=== PATIENT | male | born 1955 | race Caucasian/White ===

== ENCOUNTER 2017-06-22 14:57 | Inpatient (IN) | payer MEDICAID, OTHER ==
[~2017-06-22] VITALS: Ht 172.7 cm; Wt 84.2 kg
[~2017-06-22 14:57] MED LIST: AMLO5TAB2 PO; ATOR20TA15 PO; ATOR40TA16 PO; CANA100T PO; CARV12.52 PO; CITA40TA4 PO; METF1000 PO; MIRT1TAB PO; ZOLO100T PO
[2017-06-22 15:04] VITALS: BP 122/77; PULSE 95; RESP 14; TEMP 98.2; O2SAT 100
--- NOTE | 2017-06-22 15:52 | PD ---
HPI Chief Complaint: Edema Time Seen by Provider: 15:37 Travel History International Travel<30 days: No Contact w/Intl Traveler<30days: No Traveled to known affect area: No History of Present Illness HPI This patient complains of a growth on the side of his neck. He says it's been there for at least a month. He is ignored it until this point. It doesn't cause him pain. He denies fever or injury. He drinks at least 6 beers daily but often more. He does have history of withdrawal. He was drinking this morning. He denies drug use. He occasionally sees a psychiatrist at [facility]. Severity is moderate to severe. No alleviating factors. Symptoms are worsened by his noncompliance with primary care follow-up. PFSH Past Medical History Cancer: No Cardiovascular Problems: No Diabetes: Yes Glaucoma: No Hepatitis: No Hiatal Hernia: No Hypertension: Yes Respiratory: No Seizures: No Thyroid Disease: No Past Surgical History Abdominal Surgery: No Cardiac Surgery: No Ear Surgery: No Endocrine Surgery: No Eye Surgery: No Genitourinary Surgery: No Gynecologic Surgery: No Neurologic Surgery: No Oral Surgery: No Thoracic Surgery: No Other Surgery: Yes Social History Alcohol Use: Yes (3-4 DRINKS PER DAY OR MORE) Tobacco Use: No Substance Use: Yes (ALCOHOL ABUSE) Allergies-Medications (Allergen,Severity, Reaction): Coded Allergies: No Known Allergies (Verified Adverse Reaction, Unknown, 06/22/17) Reported Meds & Prescriptions Reported Meds & Active Scripts Active Metformin (Metformin HCl) 1,000 Mg Tab 1,000 Mg PO BIDPC With meals Atorvastatin (Atorvastatin Calcium) 20 Mg Tab 20 Mg PO HS Invokana (Canagliflozin) 100 Mg Tab 100 Mg PO DAILY Take before 1st meal of day. Amlodipine (Amlodipine Besylate) 5 Mg Tab 5 Mg PO DAILY Reported Zoloft (Sertraline HCl) 100 Mg Tab 100 Mg PO DAILY Mirtazapine 7.5 Mg Tab 7.5 Mg PO HS Citalopram (Citalopram Hydrobromide) 40 Mg Tab 40 Mg PO DAILY Carvedilol 12.5 Mg Tab 12.5 Mg PO BID Atorvastatin (Atorvastatin Calcium) 40 Mg Tab 40 Mg PO HS Review of Systems General / Constitutional: No: Fever Eyes: No: Visual changes HENT: Positive: Masses, No: Headaches Cardiovascular: No: Chest Pain or Discomfort Respiratory: No: Shortness of Breath Gastrointestinal: No: Abdominal Pain Genitourinary: No: Dysuria Musculoskeletal: No: Pain Skin: No Rash Neurologic: No: Weakness Psychiatric: No: Depression Endocrine: No: Polydipsia Hematologic/Lymphatic: No: Easy Bruising Physical Exam Narrative GENERAL: Well-nourished, well-developed patient in no apparent distress. SKIN: Focused skin assessment reveals no rash and nodules. Skin is Warm and dry. HEAD: Atraumatic. Normocephalic. EYES: Pupils equal and round. No scleral icterus. No injection or drainage. ENT: No nasal bleeding or discharge. Mucous membranes pink and moist. Oral cavity examination reveals a large fungating growth on the right side of the palate. There is a small amount of shift of uvula to the left side. His airway is intact at this time. He can speak and swallow. The area is nontender. Dentition is poor NECK: Trachea midline. No JVD. Has a large firm fixed nontender growth on the right side of his neck. It centered about the angle of the mandible. There is no fluctuance or redness or warmth. CARDIOVASCULAR: Regular rate and rhythm. No murmur appreciated. RESPIRATORY: No accessory muscle use. Clear to auscultation. Breath sounds equal bilaterally. GASTROINTESTINAL: Abdomen soft, non-tender, nondistended. Hepatic and splenic margins not palpable. MUSCULOSKELETAL: No obvious deformities. No clubbing. No cyanosis. No edema. NEUROLOGICAL: Awake and alert. No obvious cranial nerve deficits. Motor grossly within normal limits. Normal speech. PSYCHIATRIC: Appropriate mood and affect; insight and judgment poor . Data Data Last Documented VS Vital Signs Date Time Temp Pulse Resp B/P (MAP) Pulse Ox O2 Delivery O2 Flow Rate FiO2 06/22/17 15:04 98.2 95 14 122/77 (92) 100 Orders Orders Iv Access Insert/Monitor (06/22/17 15:37) Complete Blood Count With Diff (06/22/17 15:37) Comprehensive Metabolic Panel (06/22/17 15:37) Prothrombin Time / Inr (Pt) (06/22/17 15:37) Act Partial Throm Time (Ptt) (06/22/17 15:37) Chest, Single Ap (06/22/17 ) Ct Soft Tiss Neck W Iv Cont (06/22/17 ) Alcohol (Ethanol) (06/22/17 15:37) Admit Order (Ed Use Only) (06/22/17 16:54) Labs Laboratory Tests Test 06/22/17 15:50 White Blood Count 11.1 TH/MM3 Red Blood Count 4.79 MIL/MM3 Hemoglobin 14.1 GM/DL Hematocrit 41.9 % Mean Corpuscular Volume 87.3 FL Mean Corpuscular Hemoglobin 29.4 PG Mean Corpuscular Hemoglobin Concent 33.7 % Red Cell Distribution Width 12.6 % Platelet Count 350 TH/MM3 Mean Platelet Volume 6.8 FL Neutrophils (%) (Auto) 75.2 % Lymphocytes (%) (Auto) 15.8 % Monocytes (%) (Auto) 6.4 % Eosinophils (%) (Auto) 2.0 % Basophils (%) (Auto) 0.6 % Neutrophils # (Auto) 8.3 TH/MM3 Lymphocytes # (Auto) 1.7 TH/MM3 Monocytes # (Auto) 0.7 TH/MM3 Eosinophils # (Auto) 0.2 TH/MM3 Basophils # (Auto) 0.1 TH/MM3 CBC Comment DIFF FINAL Differential Comment Prothrombin Time 10.4 SEC Prothromb Time International Ratio 1.0 RATIO Activated Partial Thromboplast Time 25.4 SEC Blood Urea Nitrogen 11 MG/DL Creatinine 0.80 MG/DL Random Glucose 150 MG/DL Total Protein 8.2 GM/DL Albumin 3.5 GM/DL Calcium Level 9.0 MG/DL Alkaline Phosphatase 60 U/L Aspartate Amino Transf (AST/SGOT) 12 U/L Alanine Aminotransferase (ALT/SGPT) 15 U/L Total Bilirubin 0.2 MG/DL Sodium Level 137 MEQ/L Potassium Level 3.9 MEQ/L Chloride Level 103 MEQ/L Carbon Dioxide Level 25.9 MEQ/L Anion Gap 8 MEQ/L Estimat Glomerular Filtration Rate 98 ML/MIN Ethyl Alcohol Level LESS THAN 3 MG/DL MDM Medical Decision Making Medical Screen Exam Complete: Yes Emergency Medical Condition: Yes Medical Record Reviewed: Yes Differential Diagnosis Squamous cell cancer, cancer of the head and neck, abscess Narrative Course I have reviewed the patient's electronic medical record. Presentation here is consistent with a new diagnosis of head and neck cancer. This does not seem like an infectious cause or abscess. IV placed CBC is normal Metabolic profile is normal LFTs are normal Coagulation studies are normal Alcohol level Reviewed his chest x-ray which is normal Soft tissue neck CT with IV contrast has been ordered to evaluate the mass. CT is pending. I reviewed the case in detail with medical residents will admit. This patient needs evaluation for this and not safe for outpatient given that his follow-up will be lacking. He is uninsured and an alcoholic with no primary care physician. This is close enough to airway compromise that it should be handled in the near future. Diagnosis Primary Impression: Oropharyngeal mass Admitting Information Admitting Physician Requests: Admit Jamey Novoa MD Jun 22, 2017 15:52
[2017-06-22 16:08] LABS: AUTOMATED NEUTROPHIL # 8.3 TH/MM3 (1.8-7.7); BASOPHIL # 0.1 TH/MM3 (0-0.2); BASOPHIL % 0.6 % (0.0-2.0); EOSINOPHIL # 0.2 TH/MM3 (0-0.4); HEMATOCRIT 41.9 % (39.0-51.0); HEMOGLOBIN 14.1 GM/DL (13.0-17.0); LYMPH % 15.8 % (9.0-44.0); LYMPHOCYTE # 1.7 TH/MM3 (1.0-4.8); MEAN CELL VOLUME 87.3 FL (80.0-100.0); MEAN CORPUSCULAR HEMOGLOBIN 29.4 PG (27.0-34.0); MEAN CORPUSCULAR HGB CONC 33.7 % (32.0-36.0); MEAN PLATELET VOLUME 6.8 FL (7.0-11.0); MONO % 6.4 % (0.0-8.0); MONOCYTE # 0.7 TH/MM3 (0-0.9); NEUT % 75.2 % (16.0-70.0); PLATELET COUNT 350 TH/MM3 (150-450); RED BLOOD COUNT 4.79 MIL/MM3 (4.50-5.90); RED CELL DISTRIBUTION WIDTH 12.6 % (11.6-17.2); WHITE BLOOD COUNT 11.1 TH/MM3 (4.0-11.0)
--- NOTE | 2017-06-22 16:14 | RADRPT ---
EXAM DATE/TIME: 06/22/2017 15:46 [facility] COMPARISON: No previous studies available for comparison. INDICATIONS : Swollen right side of jaw. MEDICAL HISTORY : None. SURGICAL HISTORY : None. ENCOUNTER: Initial ACUITY: 1 month PAIN SCORE: 0/10 LOCATION: Bilateral chest FINDINGS: A single view of the chest demonstrates the lungs to be symmetrically aerated without evidence of mas s, infiltrate or effusion. The cardiomediastinal contours are unremarkable. Osseous structures are intact hypertrophic spurring of the mid lower thoracic spine.. CONCLUSION: No acute disease. Rudy Cormier MD on June 22, 2017 at 16:11 Board Certified Radiologist. This report was verified electronically.
[2017-06-22 16:17] LABS: PROTHROMBIN TIME - PATIENT 10.4 SEC (9.8-11.6)
[2017-06-22 16:42] LABS: ALBUMIN 3.5 GM/DL (3.4-5.0); AST (GOT) 12 U/L (15-37); BICARBONATE 25.9 MEQ/L (21.0-32.0); BLOOD UREA NITROGEN 11 MG/DL (7-18); CHLORIDE 103 MEQ/L (98-107); GLOMERULAR FILTRATION RATE 98 ML/MIN (>89); GLUCOSE,RANDOM 150 MG/DL (74-106); SODIUM (NA) 137 MEQ/L (136-145)
[2017-06-22 16:46] LABS: ALKALINE PHOSPHATASE 60 U/L (45-117); ALT (GPT) 15 U/L (12-78); TOTAL BILIRUBIN ADULT 0.2 MG/DL (0.2-1.0); TOTAL PROTEIN 8.2 GM/DL (6.4-8.2)
[2017-06-22] MEDS ORDERED: ZOFR4TAB PO (16:46)
[2017-06-22] MEDS ORDERED: IOHEXOL 350 MG/ML 10 ML VIAL (for RAD DIAG) IVCONTRAST ONE (17:39)
--- NOTE | 2017-06-22 17:54 | RADRPT ---
EXAM DATE/TIME: 06/22/2017 17:39 [facility] COMPARISON: No previous studies available for comparison. INDICATIONS : Right side neck swelling, mass. IV CONTRAST: 67 cc Omnipaque 350 (iohexol) IV RADIATION DOSE: 14.68 CTDIvol (mGy) MEDICAL HISTORY : Hypertension. Diabetes mellitus type 2. SURGICAL HISTORY : None. ENCOUNTER: Initial ACUITY: 1 month PAIN SCALE: 5/10 LOCATION: Right neck region. TECHNIQUE: Volumetric scanning of the neck was performed. Using automated exposure control and adjustment of th e mA and/or kV according to patient size, radiation dose was kept as low as reasonably achievable to obtain optimal diagnostic quality images. DICOM format image data is available electronically for r eview and comparison. FINDINGS: Problem specific findings: Post contrast CT imaging demonstrates a large right-sided mass which appears to originate the tonsill ar pillar on the right. This measures at least 5.0 x 3.7 cm. There is extension of the soft tissue ma ss into the jugular jacinto chain on the right. There is a large jacinto mass at this point which measure s at least 4.3 x 4.6 cm. The mass extends inferiorly down to and involves the right side of the tongu e base. The lesion essentially fills the right parapharyngeal space. And extend superiorly up to the base of the nasopharynx on the right. The examination also demonstrates necrotic adenopathy measuring 2.7 x 2.2 cm with several other surrounding smaller nodes in the group 2 jugular jacinto chain on the left. The findings are highly suspicious for malignancy. CT source data: The larynx is intact. The limited portions of upper chest visualized are unremarkable. The limited po rtions of brain parenchyma visualized are unremarkable. There is no evidence of bony invasion. CONCLUSION: The examination demonstrates a large soft tissue mass which appears to have originated in the tonsill ar pillar on the right. Superiorly this extends up to the right side of the nasopharynx. Inferiorly i t extends down to and involves the right side of the tongue base. The primary mass measures at least 5.0 x 3.7 cm. There is a soft tissue mass evident in the jugular jacinto chain on the right measuring 4 .3 x 4.6 cm. There is necrotic, abnormal adenopathy in the group 2 jugular jacinto chain on the left. T hese findings are highly suspicious for malignancy. Eddi Webb MD on June 22, 2017 at 17:46 Board Certified Radiologist. This report was verified electronically.
--- NOTE | 2017-06-22 18:21 | HHI.HP ---
HPI Service Family Medicine Primary Care Physician No Primary Care Physician Admission Diagnosis oropharyngeal mass Diagnoses: International Travel<30 Days: No Contact w/Intl Traveler<30days: No Known Affected Area: No History of Present Illness 61 y/o M, comes in with worsening lump on R side of face. It is becoming more difficult for him to open his jaw and swallow. He can still tolerate PO but it hurts when he opens his mouth too far. He never has any problems sipping water. He has also noticed it is impeding his speech. . He had a little trouble breathing last night and this caused him to think of this issue more seriously. He first noticed the lump 1 month ago and it has been gradually getting bigger. Denies any tobacco chewing or smoking. He does see a psychiatrist regularly, and she told him to come into the ED to get evaluated for this issue. He last saw a PCP 1 month ago but he didn't mention the lump. He has had a 10lb weight loss in the last month. He has had some congestion for the last few weeks, productive cough with mucous. He has no known lung disease but has had sinus issues. Denies fever/chills. Denies night sweats. Denies CP/ SOB/dizziness. Review of Systems Constitutional: DENIES: Weight gain, Chills Endocrine: DENIES: Polyuria Eyes: DENIES: Blurred vision, Double Vision Ears, nose, mouth, throat: COMPLAINS OF: Tinnitus (x 2 years), DENIES: Vertigo Respiratory: COMPLAINS OF: Cough, Sputum production, DENIES: Hemoptysis Cardiovascular: COMPLAINS OF: Syncope (couple months ago yes after standing up) , DENIES: Chest pain Gastrointestinal: DENIES: Constipation, Diarrhea, Nausea, Vomiting Genitourinary: DENIES: Urinary frequency, Urinary incontinence Integumentary: DENIES: Nail changes Hematologic/lymphatic: DENIES: Lymphadenopathy Immunologic/allergic: DENIES: Urticaria Neurologic: DENIES: Headache, Seizures Psychiatric: COMPLAINS OF: Anxiety (seeing psych, started a few months ago), Depression Past Family Social History Past Medical History DM - uncontrolled recently? Anxiety, Depression HTN Jonh for mental problems Past Surgical History NEC FAS on L hand knuckle, with debridement in 2014 2 carpal tunnel broken leg (28 y/a) Allergies: Coded Allergies: No Known Allergies (Verified Allergy, Unknown, 06/22/17) Family History Mom - Cancer of peritoneum Dad - CHF, DM Social History live with a roommate, live in a house in [facility], 1 dog drinking 6-pack /day (no hx of withdrawl sx) w/ sometimes vodka & OJ, no smoking , occasional marijuana use Physical Exam Vital Signs Vital Signs Date Time Temp Pulse Resp B/P (MAP) Pulse Ox O2 Delivery O2 Flow Rate FiO2 06/22/17 15:04 98.2 95 14 122/77 (92) 100 Physical Exam GENERAL: This is a well-nourished, well-developed patient, in no apparent distress. SKIN: No rashes, ecchymoses or lesions. Cool and dry. HEAD: Atraumatic. Normocephalic. No temporal or scalp tenderness. EYES: Pupils equal round and reactive. Extraocular motions intact. No scleral icterus. No injection or drainage. ENT: Nose without bleeding, purulent drainage or septal hematoma. Throat with large fungating mass apparent in right posterior throat. Uvula is deviated to the far left. NECK: 5 cm x 4 cm soft tissue mass under right jaw line posteriorly. On erythematous, nontender. On superlative. CARDIOVASCULAR: Regular rate and rhythm without murmurs, gallops, or rubs. RESPIRATORY: Clear to auscultation. Breath sounds equal bilaterally. No wheezes , rales, or rhonchi. GASTROINTESTINAL: Abdomen soft, non-tender, nondistended. No hepato-splenomegaly , or palpable masses. No guarding. MUSCULOSKELETAL: Extremities without clubbing, cyanosis, or edema. No joint tenderness, effusion, or edema noted. No calf tenderness. Negative Homans sign bilaterally. NEUROLOGICAL: Awake and alert. Cranial nerves II through XII intact. Motor and sensory grossly within normal limits. Five out of 5 muscle strength in all muscle groups. Normal speech. Laboratory Laboratory Tests Test 06/22/17 15:50 White Blood Count 11.1 Red Blood Count 4.79 Hemoglobin 14.1 Hematocrit 41.9 Mean Corpuscular Volume 87.3 Mean Corpuscular Hemoglobin 29.4 Mean Corpuscular Hemoglobin Concent 33.7 Red Cell Distribution Width 12.6 Platelet Count 350 Mean Platelet Volume 6.8 Neutrophils (%) (Auto) 75.2 Lymphocytes (%) (Auto) 15.8 Monocytes (%) (Auto) 6.4 Eosinophils (%) (Auto) 2.0 Basophils (%) (Auto) 0.6 Neutrophils # (Auto) 8.3 Lymphocytes # (Auto) 1.7 Monocytes # (Auto) 0.7 Eosinophils # (Auto) 0.2 Basophils # (Auto) 0.1 CBC Comment DIFF FINAL Differential Comment Prothrombin Time 10.4 Prothromb Time International Ratio 1.0 Activated Partial Thromboplast Time 25.4 Blood Urea Nitrogen 11 Creatinine 0.80 Random Glucose 150 Total Protein 8.2 Albumin 3.5 Calcium Level 9.0 Alkaline Phosphatase 60 Aspartate Amino Transf (AST/SGOT) 12 Alanine Aminotransferase (ALT/SGPT) 15 Total Bilirubin 0.2 Sodium Level 137 Potassium Level 3.9 Chloride Level 103 Carbon Dioxide Level 25.9 Anion Gap 8 Estimat Glomerular Filtration Rate 98 Ethyl Alcohol Level LESS THAN 3 Result Diagram: 06/22/17 1550 06/22/17 1550 Septic Shock Reassessment Septic shock perfusion: reassessment completed Caprini VTE Risk Assessment Caprini VTE Risk Assessment: No/Low Risk (score <= 1) Caprini Risk Assessment Model Point Value = 1 Point Value = 2 Point Value = 3 Point Value = 5 Age 41-60 Minor surgery BMI > 25 kg/m2 Swollen legs Varicose veins or History of unexplained or recurrent spontaneous Oral contraceptives or hormone replacement Sepsis (< 1 month) Serious lung disease, including pneumonia (< 1 month) Abnormal pulmonary function Acute myocardial infarction Congestive heart failure (< 1 month) History of inflammatory bowel disease Medical patient at bed rest Age 61-74 Arthroscopic surgery Major open surgery (> 45 min) Laparoscopic surgery (> 45 min) Malignancy Confined to bed (> 72 hours) Immobilizing plaster cast Central venous access Age >= 75 History of VTE Family history of VTE Factor V Leiden Prothrombin [id number] Lupus anticoagulant Anticardiolipin antibodies Elevated serum homocysteine Heparin-induced thrombocytopenia Other congenital or acquired thrombophilia Stroke (< 1 month) Elective arthroplasty Hip, pelvis, or leg fracture Acute spinal cord injury (< 1 month) Prophylaxis Regimen Total Risk Factor Score Risk Level Prophylaxis Regimen 0-1 Low Early ambulation 2 Moderate Order ONE of the following: *Sequential Compression Device (SCD) *Heparin 5000 units SQ BID 3-4 Higher Order ONE of the following medications: *Heparin 5000 units SQ TID *Enoxaparin/Lovenox 40 mg SQ daily (WT < 150 kg, CrCl > 30 mL/min) *Enoxaparin/Lovenox 30 mg SQ daily (WT < 150 kg, CrCl > 10-29 mL/min) *Enoxaparin/Lovenox 30 mg SQ BID (WT < 150 kg, CrCl > 30 mL/min) AND/OR *Sequential Compression Device (SCD) 5 or more Highest Order ONE of the following medications: *Heparin 5000 units SQ TID (Preferred with Epidurals) *Enoxaparin/Lovenox 40 mg SQ daily (WT < 150 kg, CrCl > 30 mL/min) *Enoxaparin/Lovenox 30 mg SQ daily (WT < 150 kg, CrCl > 10-29 mL/min) *Enoxaparin/Lovenox 30 mg SQ BID (WT < 150 kg, CrCl > 30 mL/min) AND *Sequential Compression Device (SCD) Assessment and Plan Assessment and Plan 61-year-old male, past medical history of diabetes and hypertension, presents with growing mass on neck for the last month. Code Status Full code Problem List: (1) Oropharyngeal mass ICD Codes: R22.1 - Localized swelling, mass and lump, neck Status: Acute Plan: Growing over the past month, hx of weight loss Malignancy versus other benign growth 5 cm x 4 cm on exam Follow-up ENT consult Neck CT: The examination demonstrates a large soft tissue mass which appears to have originated in the tonsillar pillar on the right. Superiorly this extends up to the right side of the nasopharynx. Inferiorly it extends down to and involves the right side of the tongue base. The primary mass measures at least 5.0 x 3.7 cm. There is a soft tissue mass evident in the jugular jacinto chain on the right measuring 4.3 x 4.6 cm. There is necrotic, abnormal adenopathy in the group 2 jugular jacinto chain on the left. These findings are highly suspicious for malignancy. (2) Hypertension ICD Codes: I10 - Essential (primary) hypertension Plan: Continue amlodipine 5 daily Follow-up blood pressures (3) Anxiety and depression ICD Codes: F41.8 - Other specified anxiety disorders Plan: Continue home meds Continue Zoloft Continue Abilify Will continue to evaluate psychiatric status, we'll consider psych consult if necessary (4) Diabetes ICD Codes: E11.9 - Type 2 diabetes mellitus without complications Plan: Hold home metformin Low-dose sliding scale Follow-up blood sugars (5) fen/ppx Status: Acute Plan: Fluid: By mouth fluid as tolerated Electrolytes: Follow-up BMP and replete as needed Nutrition: Diabetic diet Physician Certification 2 Midnight Certification Type: Admission for Inpatient Services Order for Inpatient Services The services are ordered in accordance with Medicare regulations or non- Medicare payer requirements, as applicable. In the case of services not specified as inpatient-only, they are appropriately provided as inpatient services in accordance with the 2-midnight benchmark. Estimated LOS (days): 2 days is the estimated time the patient will need to remain in the hospital, assuming treatment plan goals are met and no additional complications. Post-Hospital Plan: Home Ignacia Rodriguez MD R2 Jun 22, 2017 18:21
[2017-06-22 18:27] VITALS: BP 117/75; PULSE 101; RESP 18; O2SAT 99
[2017-06-22] MEDS ORDERED: LORazepam 1 MG TAB PO PRN (19:15)
[2017-06-22] MEDS ORDERED: ONDANSETRON HCL 4 MG/2 ML VIAL IVP PRN (19:15)
[2017-06-22] MEDS ORDERED: LACTULOSE SYRUP 20 GM/30 ML CUP PO PRN (19:15)
[2017-06-22] MEDS ORDERED: GLUCAGON 1 MG/ML VIAL OTHER PRN (19:15)
[2017-06-22] MEDS ORDERED: MAGNESIUM HYDROXIDE SUSP 30 ML CUP PO PRN (19:15)
[2017-06-22] MEDS ORDERED: BISACODYL 10 MG SUPP RECTAL PRN (19:15)
[2017-06-22] MEDS ORDERED: SENNOSIDES 8.6 MG TAB PO PRN (19:15)
[2017-06-22] MEDS ORDERED: LORazepam 2 MG/ML VIAL IV PUSH PRN ×4 (19:15)
[2017-06-22] MEDS ORDERED: NALOXONE HCL 0.4 MG/ML AMP IV PUSH PRN (19:15)
[2017-06-22] MEDS ORDERED: FLUMAZENIL 0.5 MG/5 ML VIAL IV PUSH PRN (19:15)
[2017-06-22] MEDS ORDERED: LORazepam 2 MG TAB PO PRN (19:15)
[2017-06-22] MEDS ORDERED: DEXTROSE 50% IN WATER 50 ML VIAL(D50) IV PUSH PRN (19:15)
[2017-06-22] MEDS ORDERED: ACETAMINOPHEN 325 MG TAB PO PRN (19:15)
[2017-06-22 20:34] VITALS: O2SAT 99
[2017-06-22 20:50] VITALS: BP 139/89; PULSE 107; RESP 16; TEMP 98.1; O2SAT 98
[2017-06-22] MEDS ORDERED: PILL SPLITTER OTHER PRN (21:00)
[2017-06-22] MEDS: INSULIN ASPART SUPPLEMENTAL SCALE SQ SCH (21:00)
[2017-06-22] MEDS: ENOXAPARIN SODIUM 40 MG/0.4 ML SYRINGE SQ SCH (21:22)
[2017-06-22] MEDS: ATORVASTATIN 40 MG TAB PO SCH (21:22)
[2017-06-22] MEDS: MIRTAZAPINE 15 MG TAB PO SCH (21:22)
[2017-06-22] MEDS: ZOLPIDEM TARTRATE 5 MG TAB PO PRN (22:30)
[2017-06-23] VITALS (8 sets, daily range): BP systolic 107–144; BP diastolic 70–98; PULSE 85–103; RESP 16; TEMP 97.4–98.9; O2SAT 95–98
--- NOTE | 2017-06-23 07:32 | PD.CONS ---
History of Present Illness Service ENT Consult Requested By ED Reason for Consult Right neck mass. Primary Care Physician No Primary Care Physician Diagnoses: History of Present Illness 61 year old man, slowly enlarging right neck mass. Patient feels about a month. Presented to ED. Denies dysphagia and odynophagia. [place] his breathing may have been a little tight. CT confirmed large right oropharyngeal and neck mass. Review of Systems Ears, nose, mouth, throat: COMPLAINS OF: Oral lesions, DENIES: Nasal discharge , Throat pain, Hoarseness, Odynophagia Past Family Social History Allergies: Coded Allergies: No Known Allergies (Verified Allergy, Unknown, 06/22/17) Physical Exam Vital Signs Vital Signs Date Time Temp Pulse Resp B/P (MAP) Pulse Ox O2 Delivery O2 Flow Rate FiO2 06/23/17 04:35 97.4 97 16 126/70 (88) 98 06/23/17 00:45 98.5 88 16 107/71 (83) 96 06/22/17 20:50 98.1 107 16 139/89 (106) 98 06/22/17 20:40 06/22/17 20:34 99 21 06/22/17 18:27 101 18 117/75 (89) 99 Room Air 06/22/17 15:04 98.2 95 14 122/77 (92) 100 Physical Exam GENERAL: This is a well-nourished, well-developed patient, in no apparent distress. SKIN: No rashes, ecchymoses or lesions. Cool and dry. HEAD: Atraumatic. Normocephalic. No temporal or scalp tenderness. EYES: Pupils equal round and reactive. Extraocular motions intact. No scleral icterus. No injection or drainage. ENT: Nose without bleeding, purulent drainage or septal hematoma. Throat with large right tonsillar lesion intro palate and down to tongue base. Clinically consistent with squamous cell carcinoma. Airway patent. NECK: Trachea midline.Large level two and three mass. Laboratory Laboratory Tests Test 06/22/17 15:50 06/23/17 05:33 White Blood Count 11.1 Red Blood Count 4.79 Hemoglobin 14.1 Hematocrit 41.9 Mean Corpuscular Volume 87.3 Mean Corpuscular Hemoglobin 29.4 Mean Corpuscular Hemoglobin Concent 33.7 Red Cell Distribution Width 12.6 Platelet Count 350 Mean Platelet Volume 6.8 Neutrophils (%) (Auto) 75.2 Lymphocytes (%) (Auto) 15.8 Monocytes (%) (Auto) 6.4 Eosinophils (%) (Auto) 2.0 Basophils (%) (Auto) 0.6 Neutrophils # (Auto) 8.3 Lymphocytes # (Auto) 1.7 Monocytes # (Auto) 0.7 Eosinophils # (Auto) 0.2 Basophils # (Auto) 0.1 CBC Comment DIFF FINAL Differential Comment Prothrombin Time 10.4 Prothromb Time International Ratio 1.0 Activated Partial Thromboplast Time 25.4 Blood Urea Nitrogen 11 Creatinine 0.80 Random Glucose 150 Total Protein 8.2 Albumin 3.5 Calcium Level 9.0 Alkaline Phosphatase 60 Aspartate Amino Transf (AST/SGOT) 12 Alanine Aminotransferase (ALT/SGPT) 15 Total Bilirubin 0.2 Sodium Level 137 Potassium Level 3.9 Chloride Level 103 Carbon Dioxide Level 25.9 Anion Gap 8 Estimat Glomerular Filtration Rate 98 Ethyl Alcohol Level LESS THAN 3 Result Diagram: 06/22/17 1550 06/22/[address] report reviewed. Assessment and Plan Assessment and Plan 61 year old man, advanced head and neck cancer. 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 Need a confirmatory tissue diagnosis. Will ask Interventional Radiology to approach from US guided biopsy of right neck. Not a surgical candidate. Will consult Medical Oncology and Radiation Oncology. Reviewed finding and plans with patient. I did inform him that I believe this is a cancer and he will require treatment. He understands and wishes to pursue. Isaac Elliott MD Jun 23, 2017 07:32
[2017-06-23 08:34] LABS: ALBUMIN 3.1 GM/DL (3.4-5.0); AST (GOT) 8 U/L (15-37); BICARBONATE 28.2 MEQ/L (21.0-32.0); BLOOD UREA NITROGEN 14 MG/DL (7-18); CALCIUM 8.9 MG/DL (8.5-10.1); CHLORIDE 104 MEQ/L (98-107); CREATININE 0.85 MG/DL (0.60-1.30); GLOMERULAR FILTRATION RATE 91 ML/MIN (>89); GLUCOSE,RANDOM 182 MG/DL (74-106); SODIUM (NA) 140 MEQ/L (136-145)
[2017-06-23 08:37] LABS: ALKALINE PHOSPHATASE 59 U/L (45-117); ALT (GPT) 11 U/L (12-78); TOTAL BILIRUBIN ADULT 0.2 MG/DL (0.2-1.0); TOTAL PROTEIN 7.3 GM/DL (6.4-8.2)
[2017-06-23] MEDS: amLODIPine BESYLATE 5 MG TAB PO SCH (08:44)
[2017-06-23] MEDS: ARIPiprazole 2 MG TAB PO SCH (08:44)
[2017-06-23] MEDS: SERTRALINE HCL 100 MG TAB PO SCH (08:44)
[2017-06-23] MEDS: INSULIN ASPART SUPPLEMENTAL SCALE SQ SCH ×4 (08:45→19:50)
[2017-06-23] MEDS ORDERED: PNEUMOCOCCAL POLYVALENT INJ 25 MCG/0.5 ML SYR IM ONE (09:00)
[2017-06-23] MEDS ORDERED: INFLUENZA VIRUS VACCINE (QUADRIVALENT) 0.5 ML SYR IM ONE (09:00)
--- NOTE | 2017-06-23 12:17 | HHI.FPPN ---
Subjective Remarks Attending admitting note. 61-year-old gentleman admitted through the emergency room after presenting with a mass involving the right side of his face extending into the oropharynx and on imaging noted to be close to the carotid artery. Patient relates that he is not a smoker, has drank alcohol in the past. Sees a psychiatrist at [facility] and otherwise has enjoyed good health except for a 10 pound weight loss in the last month area appetite may be down. Please refer to the resident history and physical for complete discussion of past medical history, family history, social history, review of systems Objective Vitals Vital Signs Date Time Temp Pulse Resp B/P (MAP) Pulse Ox O2 Delivery O2 Flow Rate FiO2 06/23/17 11:51 98.6 95 16 129/83 (98) 97 06/23/17 08:38 98.5 95 16 123/80 (94) 95 06/23/17 04:35 97.4 97 16 126/70 (88) 98 06/23/17 00:45 98.5 88 16 107/71 (83) 96 06/22/17 20:50 98.1 107 16 139/89 (106) 98 06/22/17 20:40 06/22/17 20:34 99 21 06/22/17 18:27 101 18 117/75 (89) 99 Room Air 06/22/17 15:04 98.2 95 14 122/77 (92) 100 I/O 06/22/17 06/22/17 06/22/17 06/23/17 06/23/17 06/23/17 07:00 15:00 23:00 07:00 15:00 23:00 Intake Total 240 ml Output Total 300 ml Balance -60 ml Intake Oral 240 ml Output Urine Total 300 ml Result Diagram: 06/22/17 1550 06/23/17 0533 Objective Remarks Vital signs noted. Gen. appearance: Older gentleman who is in a chair out of bed, makes good eye contact, normal affect, pleasant in conversation. HEENT: Notable for a 6+ centimeters mass right submandibular area palpable externally and then on inspection of the oropharynx mass in the right pharyngeal arch. Erythematous mucosa. Neck: No palpable adenopathy. Lungs: Clear to auscultation Cardiac: S1-S2, no S3. No murmurs appreciated. Abdomen: Soft, nontender. Lower extremities: Without edema. 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 Biopsy pending. Doubt lymphoma. #2 history of hypertension #3 type 2 diabetes mellitus Appreciate ENT consultation, biopsy, try to arrange for follow-up with hematology/oncology. Resources may be limited. Case reviewed and discussed with the resident team. Agree with plan of care is discussed with me and documented in the resident note. Problem List: (1) Oropharyngeal mass ICD Codes: R22.1 - Localized swelling, mass and lump, neck Status: Acute Plan: Growing over the past month, hx of weight loss Malignancy versus other benign growth 5 cm x 4 cm on exam Follow-up ENT consult Neck CT: The examination demonstrates a large soft tissue mass which appears to have originated in the tonsillar pillar on the right. Superiorly this extends up to the right side of the nasopharynx. Inferiorly it extends down to and involves the right side of the tongue base. The primary mass measures at least 5.0 x 3.7 cm. There is a soft tissue mass evident in the jugular jacinto chain on the right measuring 4.3 x 4.6 cm. There is necrotic, abnormal adenopathy in the group 2 jugular jacinto chain on the left. These findings are highly suspicious for malignancy. (2) Hypertension ICD Codes: I10 - Essential (primary) hypertension Plan: Continue amlodipine 5 daily Follow-up blood pressures (3) Anxiety and depression ICD Codes: F41.8 - Other specified anxiety disorders Plan: Continue home meds Continue Zoloft Continue Abilify Will continue to evaluate psychiatric status, we'll consider psych consult if necessary (4) Diabetes ICD Codes: E11.9 - Type 2 diabetes mellitus without complications Plan: Hold home metformin Low-dose sliding scale Follow-up blood sugars (5) fen/ppx Status: Acute Plan: Fluid: By mouth fluid as tolerated Electrolytes: Follow-up BMP and replete as needed Nutrition: Diabetic diet Anton Barrett MD Jun 23, 2017 12:17
[2017-06-23] MEDS ORDERED: POTASSIUM CHLORIDE 10 MEQ CONTROLLED RELEASE TAB PO ONE (14:15)
[2017-06-23] MEDS: ENOXAPARIN SODIUM 40 MG/0.4 ML SYRINGE SQ SCH (19:50)
[2017-06-23] MEDS: MIRTAZAPINE 15 MG TAB PO SCH (19:52)
[2017-06-23] MEDS: ATORVASTATIN 40 MG TAB PO SCH (19:52)
[2017-06-24] VITALS (7 sets, daily range): BP systolic 119–135; BP diastolic 75–82; PULSE 84–95; RESP 17–20; TEMP 97.9–98.2; O2SAT 95–98
[2017-06-24] MEDS: ZOLPIDEM TARTRATE 5 MG TAB PO PRN (04:13)
[2017-06-24 07:23] LABS: AUTOMATED NEUTROPHIL # 9.5 TH/MM3 (1.8-7.7); BASOPHIL # 0.1 TH/MM3 (0-0.2); BASOPHIL % 0.7 % (0.0-2.0); EOSINOPHIL # 0.3 TH/MM3 (0-0.4); EOSINOPHIL % 2.4 % (0.0-4.0); HEMATOCRIT 40.5 % (39.0-51.0); HEMOGLOBIN 13.7 GM/DL (13.0-17.0); LYMPH % 12.1 % (9.0-44.0); LYMPHOCYTE # 1.5 TH/MM3 (1.0-4.8); MEAN CORPUSCULAR HEMOGLOBIN 29.5 PG (27.0-34.0); MEAN CORPUSCULAR HGB CONC 33.9 % (32.0-36.0); MONO % 7.3 % (0.0-8.0); MONOCYTE # 0.9 TH/MM3 (0-0.9); NEUT % 77.5 % (16.0-70.0); PLATELET COUNT 326 TH/MM3 (150-450); RED BLOOD COUNT 4.65 MIL/MM3 (4.50-5.90); RED CELL DISTRIBUTION WIDTH 12.7 % (11.6-17.2); WHITE BLOOD COUNT 12.2 TH/MM3 (4.0-11.0)
[2017-06-24 07:48] LABS: BICARBONATE 26.3 MEQ/L (21.0-32.0); CALCIUM 9.1 MG/DL (8.5-10.1); CREATININE 0.79 MG/DL (0.60-1.30)
[2017-06-24] MEDS: amLODIPine BESYLATE 5 MG TAB PO SCH (08:49)
[2017-06-24] MEDS: ARIPiprazole 2 MG TAB PO SCH (08:49)
[2017-06-24] MEDS: SERTRALINE HCL 100 MG TAB PO SCH (08:49)
[2017-06-24] MEDS: INSULIN ASPART SUPPLEMENTAL SCALE SQ SCH ×4 (08:50→21:23)
--- NOTE | 2017-06-24 09:30 | HHI.FPPN ---
Subjective Remarks Patient seen and examined bedside this morning. He continues to eat and drink without difficulty. He has not had any difficulty breathing. Denies chest pain/ redness of breath. Denies dizziness. Ambulating and voiding without difficulty. Objective Vitals Vital Signs Date Time Temp Pulse Resp B/P (MAP) Pulse Ox O2 Delivery O2 Flow Rate FiO2 06/24/17 08:00 97.9 90 17 119/78 (92) 96 06/24/17 04:00 98.2 89 20 131/75 (93) 96 06/24/17 00:00 98.0 87 20 125/77 (93) 96 06/23/17 22:06 98.0 85 16 144/88 (106) 98 06/23/17 20:00 98.9 91 16 120/81 (94) 98 06/23/17 16:56 97 21 06/23/17 16:36 98.5 103 16 132/98 (109) 97 06/23/17 11:51 98.6 95 16 129/83 (98) 97 I/O 06/23/17 06/23/17 06/23/17 06/24/17 06/24/17 06/24/17 07:00 15:00 23:00 07:00 15:00 23:00 Intake Total 240 ml 740 ml 220 ml Output Total 300 ml 375 ml 300 ml Balance -60 ml 365 ml -80 ml Intake Oral 240 ml 740 ml 220 ml Output Urine Total 300 ml 375 ml 300 ml # Voids 1 # Bowel Movements 0 Result Diagram: 06/24/17 0635 06/24/17 0635 Objective Remarks Vital signs noted. Gen. appearance: Older gentleman who is in a chair out of bed, makes good eye contact, normal affect, pleasant in conversation. HEENT: Notable for a 6+ centimeters mass right submandibular area palpable externally and then on inspection of the oropharynx mass in the right pharyngeal arch. Erythematous mucosa. Neck: No palpable adenopathy. Lungs: Clear to auscultation Cardiac: S1-S2, no S3. No murmurs appreciated. Abdomen: Soft, nontender. Lower extremities: Without edema. 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 Biopsy pending. Doubt lymphoma. #2 history of hypertension #3 type 2 diabetes mellitus Appreciate ENT consultation, biopsy, try to arrange for follow-up with hematology/oncology. Resources may be limited. Case reviewed and discussed with the resident team. Agree with plan of care is discussed with me and documented in the resident note. Problem List: (1) Oropharyngeal mass ICD Codes: R22.1 - Localized swelling, mass and lump, neck Status: Acute Plan: Growing over the past month, hx of weight loss Malignancy versus other benign growth 5 cm x 4 cm on exam Follow-up ENT consult - Plan for IR ultrasound-guided biopsy of neck - Follow up medical oncology consult - Follow up radiology oncology consult Neck CT: The examination demonstrates a large soft tissue mass which appears to have originated in the tonsillar pillar on the right. Superiorly this extends up to the right side of the nasopharynx. Inferiorly it extends down to and involves the right side of the tongue base. The primary mass measures at least 5.0 x 3.7 cm. There is a soft tissue mass evident in the jugular jacinto chain on the right measuring 4.3 x 4.6 cm. There is necrotic, abnormal adenopathy in the group 2 jugular jacinto chain on the left. These findings are highly suspicious for malignancy. (2) Hypertension ICD Codes: I10 - Essential (primary) hypertension Plan: Continue amlodipine 5 daily Follow-up blood pressures (3) Anxiety and depression ICD Codes: F41.8 - Other specified anxiety disorders Plan: Continue home meds Continue Zoloft Continue Abilify Will continue to evaluate psychiatric status, we'll consider psych consult if necessary (4) Diabetes ICD Codes: E11.9 - Type 2 diabetes mellitus without complications Plan: Hold home metformin Low-dose sliding scale Follow-up blood sugars (5) Drug abuse ICD Codes: F19.10 - Other psychoactive substance abuse, uncomplicated Status: Chronic Plan: UDS positive for marijuana and benzodiazepines (6) fen/ppx Status: Acute Plan: Fluid: By mouth fluid as tolerated Electrolytes: Follow-up BMP and replete as needed Nutrition: Diabetic diet Ignacia Rodriguez MD R2 Jun 24, 2017 09:30
[2017-06-24] MEDS: MIRTAZAPINE 15 MG TAB PO SCH (21:13)
[2017-06-24] MEDS: ATORVASTATIN 40 MG TAB PO SCH (21:13)
[2017-06-24] MEDS: ENOXAPARIN SODIUM 40 MG/0.4 ML SYRINGE SQ SCH (21:14)
[2017-06-25] VITALS: BP 139/62; PULSE 82; RESP 19; TEMP 98.6; O2SAT 95
[2017-06-25] MEDS: ZOLPIDEM TARTRATE 5 MG TAB PO PRN (00:14)
[2017-06-25 04:00] VITALS: BP 141/70; PULSE 86; RESP 20; TEMP 98.7; O2SAT 97
[2017-06-25 08:00] VITALS: BP 138/80; PULSE 90; RESP 18; TEMP 97.9; O2SAT 97
[2017-06-25] MEDS: amLODIPine BESYLATE 5 MG TAB PO SCH (08:32)
[2017-06-25] MEDS: ARIPiprazole 2 MG TAB PO SCH (08:32)
[2017-06-25] MEDS: SERTRALINE HCL 100 MG TAB PO SCH (08:32)
[2017-06-25] MEDS: INSULIN ASPART SUPPLEMENTAL SCALE SQ SCH ×3 (08:38→17:43)
[2017-06-25 09:04] LABS: AUTOMATED NEUTROPHIL # 7.2 TH/MM3 (1.8-7.7); BASOPHIL # 0.1 TH/MM3 (0-0.2); BASOPHIL % 0.9 % (0.0-2.0); EOSINOPHIL # 0.4 TH/MM3 (0-0.4); EOSINOPHIL % 3.5 % (0.0-4.0); HEMATOCRIT 38.9 % (39.0-51.0); HEMOGLOBIN 13.5 GM/DL (13.0-17.0); LYMPH % 17.8 % (9.0-44.0); LYMPHOCYTE # 1.8 TH/MM3 (1.0-4.8); MEAN CELL VOLUME 87.3 FL (80.0-100.0); MEAN CORPUSCULAR HEMOGLOBIN 30.2 PG (27.0-34.0); MEAN CORPUSCULAR HGB CONC 34.6 % (32.0-36.0); MEAN PLATELET VOLUME 7.2 FL (7.0-11.0); MONOCYTE # 0.7 TH/MM3 (0-0.9); NEUT % 70.8 % (16.0-70.0); PLATELET COUNT 343 TH/MM3 (150-450); RED BLOOD COUNT 4.45 MIL/MM3 (4.50-5.90); RED CELL DISTRIBUTION WIDTH 12.6 % (11.6-17.2); WHITE BLOOD COUNT 10.2 TH/MM3 (4.0-11.0)
--- NOTE | 2017-06-25 09:39 | HHI.FPPN ---
Subjective Remarks Patient seen and examined bedside. No acute events overnight. Patient has been nothing by mouth since midnight in anticipation of his IR biopsy today. He has not seen the ENT or IR doctors yet, however he is hoping that the biopsy is today. He also hopes to potentially go home after the biopsy and follow-up as an outpatient. Patient denies any chest pain/shortness of breath/dizziness. No fevers. Objective Vitals Vital Signs Date Time Temp Pulse Resp B/P (MAP) Pulse Ox O2 Delivery O2 Flow Rate FiO2 06/25/17 04:00 98.7 86 20 141/70 (93) 97 06/25/17 00:00 98.6 82 19 139/62 (87) 95 06/24/17 20:00 98.2 90 20 131/80 (97) 98 06/24/17 17:57 95 21 06/24/17 16:00 98.0 84 17 119/82 (94) 95 06/24/17 12:00 98.0 95 18 135/75 (95) 98 I/O 06/24/17 06/24/17 06/24/17 06/25/17 06/25/17 06/25/17 07:00 15:00 23:00 07:00 15:00 23:00 Intake Total 220 ml 960 ml Output Total 300 ml Balance -80 ml 960 ml Intake Oral 220 ml 960 ml Output Urine Total 300 ml # Voids 1 4 # Bowel Movements 0 1 Result Diagram: 06/25/17 0642 06/24/17 0635 Objective Remarks Vital signs noted. Gen. appearance: Older gentleman who is in a chair out of bed, makes good eye contact, normal affect, pleasant in conversation. HEENT: Notable for a 6+ centimeters mass right submandibular area palpable externally and then on inspection of the oropharynx mass in the right pharyngeal arch. Erythematous mucosa. Neck: No palpable adenopathy. Lungs: Clear to auscultation Cardiac: S1-S2, no S3. No murmurs appreciated. Abdomen: Soft, nontender. Lower extremities: Without edema. 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 Biopsy pending. Doubt lymphoma. #2 history of hypertension #3 type 2 diabetes mellitus Appreciate ENT consultation, biopsy, try to arrange for follow-up with hematology/oncology. Resources may be limited. Case reviewed and discussed with the resident team. Agree with plan of care is discussed with me and documented in the resident note. Problem List: (1) Oropharyngeal mass ICD Codes: R22.1 - Localized swelling, mass and lump, neck Status: Acute Plan: Growing over the past month, hx of weight loss Malignancy versus other benign growth 5 cm x 4 cm on exam Follow-up ENT consult - Plan for IR ultrasound-guided biopsy of neck - Follow up medical oncology consult - Follow up radiology oncology consult Neck CT: The examination demonstrates a large soft tissue mass which appears to have originated in the tonsillar pillar on the right. Superiorly this extends up to the right side of the nasopharynx. Inferiorly it extends down to and involves the right side of the tongue base. The primary mass measures at least 5.0 x 3.7 cm. There is a soft tissue mass evident in the jugular jacinto chain on the right measuring 4.3 x 4.6 cm. There is necrotic, abnormal adenopathy in the group 2 jugular jacinto chain on the left. These findings are highly suspicious for malignancy. (2) Hypertension ICD Codes: I10 - Essential (primary) hypertension Plan: Continue amlodipine 5 daily Follow-up blood pressures (3) Anxiety and depression ICD Codes: F41.8 - Other specified anxiety disorders Plan: Continue home meds Continue Zoloft Continue Abilify Will continue to evaluate psychiatric status, we'll consider psych consult if necessary (4) Diabetes ICD Codes: E11.9 - Type 2 diabetes mellitus without complications Plan: Hold home metformin Low-dose sliding scale Follow-up blood sugars (5) Drug abuse ICD Codes: F19.10 - Other psychoactive substance abuse, uncomplicated Status: Chronic Plan: UDS positive for marijuana and benzodiazepines (6) fen/ppx Status: Acute Plan: Fluid: Nothing by mouth today for procedure Electrolytes: Follow-up BMP and replete as needed Nutrition: Diabetic diet Ignacia Rodriguez MD R2 Jun 25, 2017 09:39
[2017-06-25 10:30] LABS: BICARBONATE 25.2 MEQ/L (21.0-32.0); CALCIUM 8.8 MG/DL (8.5-10.1); CREATININE 0.78 MG/DL (0.60-1.30)
--- NOTE | 2017-06-25 13:41 | HHI.DCPOC ---
Discharge Care Plan Diagnosis: (1) Oropharyngeal mass (2) Diabetes (3) Hypertension Goals to Promote Your Health * To prevent worsening of your condition and complications * To maintain your health at the optimal level Directions to Meet Your Goals Take your medications as prescribed Follow your dietary instruction Follow activity as directed Keep your appointments as scheduled Take your immunizations and boosters as scheduled If your symptoms worsen call your PCP, if no PCP go to Urgent Care Center or Emergency Room Smoking is Dangerous to Your Health. Avoid second hand smoke Call the 24-hour hour crisis hotline for domestic abuse at Ignacia Rodriguez MD R2 Jun 25, 2017 13:41
[2017-06-25 13:50] VITALS: BP 122/79; PULSE 84; RESP 20; TEMP 97.9; O2SAT 94
[2017-06-25 14:05] VITALS: BP 119/82; PULSE 93; RESP 14; TEMP 98.1; O2SAT 94
[2017-06-25] MEDS ORDERED: LIDOCAINE HCL 1% 20 ML VIAL ONE (14:20)
--- NOTE | 2017-06-25 14:23 | RADRPT ---
EXAM DATE/TIME: 06/25/2017 13:02 [facility] COMPARISON: No previous studies available for comparison. INDICATIONS : Right neck palpable lump. MEDICAL HISTORY : Hypercholesterolemia. Arthritis. Tinnitus. Hyperlipidemia. HTN. Dyspnea. Diabetes. Nectrotizing faci tis. Depression. Anxiety. Substance use. SURGICAL HISTORY : Carpel tunnel release. Right leg fracture repair. Blood transfusions. ENCOUNTER: Initial ACUITY: 1 month PAIN SCORE: 3/10 LOCATION: Right neck mass ORGAN: Right soft tissue SPECIMENS: Two core specimen(s) submitted for pathologic evaluation. DEVICE: 18 gauge Temno needle Post procedure scanning reveals no hematoma or other complication. The possibility does exist that the tissue obtained will be non-diagnostic. If the sample is non-gayle gnostic a repeat biopsy or surgical biopsy may need to be performed. TECHNIQUE: 1. Ultrasound guidance for needle biopsy. 2. Needle biopsy. I reviewed the patient's CT scan of the soft tissues of the neck. The risks, benefits and alternative s to the procedure were explained and verbal and written consent was obtained. The site was prepped in sterile fashion. Full sterile technique was used, including cap, mask, sterile gloves and gown an d a large sterile sheet. Hand hygiene and 2% chlorhexidine and/or betadine/alcohol prep was utilized per protocol for cutaneous antisepsis. The skin and subcutaneous tissues were infiltrated with loca l anesthetic solution. Sterile gel and sterile probe cover were utilized for ultrasound guidance. With the patient on the ultrasound table, images were obtained. A needle was advanced into the large right submandibular lymph node and 2 core specimens obtained and submitted for pathologic evaluation. The patient tolerated the procedure well and left the ultrasound suite in stable condition. CONCLUSION: Uncomplicated ultrasound guided core biopsy of an enlarged right submandibular lymph node. Samson Anton Jr., MD on June 25, 2017 at 14:14 Board Certified Radiologist. This report was verified electronically.
[2017-06-25 16:59] VITALS: O2SAT 94
--- NOTE | 2017-06-26 20:07 | MB ---
cc: JOANNE SIMMONS BERE DIOP DATE OF CONSULTATION 06/26/17 DATE OF 1955. HISTORY This gentleman was admitted to the hospital with enlarging right neck mass present for about a month. He felt that his breathing might be tight and he came into the hospital. A CT scan of the soft tissue head and neck was performed. This revealed an apparent large right tonsillar mass involving the right side of base of tongue measuring 5 x 3.7 cm. There is soft tissue mass evident in the jugular jacinto chain measuring 4.3 x 4.6 cm and is necrotic. There is also abnormal adenopathy on the left. These of course were suspicious for malignancy. He went onto undergo a biopsy today and was subsequently discharged. A referral was put in for radiation treatment, but unfortunately the patient was discharged today prior to our ability to see him. I will put in a follow-up order to see him in our office sometime over the next week to follow up and coordinate treatment. It is my understanding from what I have been able to see in the chart that he will require combined radiation treatment and chemotherapy. MD YULY Dupree/ /7:29 PM /7:59 PM
== END 2017-06-25 18:59 | disposition home or self-care (01) | DRG 147 ==
LOC: NEPD 14:57 → NEDA 16:59 → HCIN 20:43 → N05A 06-23 21:40
PROVIDERS: ADMIT Family Medicine; ATTEND Family Medicine
PROC: 07D13ZX Extraction of Right Neck Lymphatic, Percutaneous Approach, Diagnostic (ICD-10-PCS; principal; 2017-06-25)
DX: C09.1 Malignant neoplasm of tonsillar pillar (anterior) (posterior) (principal); C77.0 Secondary and unspecified malignant neoplasm of lymph nodes of head, face and neck; I10 Essential (primary) hypertension; E11.9 Type 2 diabetes mellitus without complications; R63.4 Abnormal weight loss; F10.20 Alcohol dependence, uncomplicated; F19.10 Other psychoactive substance abuse, uncomplicated; F32.9 Major depressive disorder, single episode, unspecified; F41.9 Anxiety disorder, unspecified; Y90.0 Blood alcohol level of less than 20 mg/100 ml; F12.90 Cannabis use, unspecified, uncomplicated; Z79.84 Long term (current) use of oral hypoglycemic drugs; Z80.8 Family history of malignant neoplasm of other organs or systems; Z91.19 Patient's noncompliance with other medical treatment and regimen; Z23 Encounter for immunization
CPT/HCPCS: 20206; 70491; 71045; 76942; 80048; 80053; 80307; 82948; 85025; 85610; 85730; 88305; 88307; 88341; 88342; 90686; 90732; J1650; J1815; Q2038; Q9967

== ENCOUNTER 2017-09-10 07:09 | Day surgery (SDC) | payer MEDICAID ==
[~2017-09-10] VITALS: Ht 172.7 cm; Wt 81.0 kg
[~2017-09-10 07:09] MED LIST changes: -ATOR20TA15 PO
[2017-09-10 07:22] VITALS: BP 107/74; PULSE 60; RESP 20; TEMP 98; O2SAT 94
[2017-09-10] MEDS ORDERED: POVIDONE IODINE 5% (ANTISEPSIS KIT) 4 APPLICATIONS EACH NARE SCH (07:45)
[2017-09-10] MEDS ORDERED: VANCOMYCIN 1000 MG/NS 250 ML - implanted port/tunneled catheter IV SCH ×2 (07:45)
[2017-09-10] MEDS ORDERED: CHLORHEXIDINE GLUCONATE 2 % 1 PACK (2 CLOTHS) TOPICAL SCH (07:45)
[2017-09-10] MEDS ORDERED: ceFAZolin 2 GM PREMIX 50 ML - implanted port/tunneled catheter insertion IV SCH (07:45)
[2017-09-10] MEDS ORDERED: MUPIROCIN 2% OINT 1 APPLIC/GM SYR EACH NARE SCH (07:45)
[2017-09-10] MEDS ORDERED: SODIUM CHLOR 0.9% 1000 ML INJ 1,000 ML IV SCH (08:00)
[2017-09-10] MEDS ORDERED: LIDOCAINE 1%/EPINEPHrine 1:100,000 SOLN 30 ML VIAL ONE (09:05)
[2017-09-10] MEDS ORDERED: MIDAZOLAM HCL 2 MG/2 ML VIAL ONE ×2 (09:07→09:34)
--- NOTE | 2017-09-10 10:08 | PD.RAD ---
Post Procedure Progress Note Pre Procedure Diagnosis: (1) Head and neck cancer Post Procedure Diagnosis: (1) Head and neck cancer Procedure Date: Sep 10, 2017 Supervising Radiologist: Ketan Daly Proceduralist/Assist: RT Harriet(R)() Anesthesia: Conscious Sedation Plan of Activity Patient to Unit: ROPU Patient Condition: Good See PACS Report for procedural detail/treatment Central Venous Access Device Procedure 1 Right Internal Jugular Infusaport Placement single lumen Ketan Daly MD Sep 10, 2017 10:08
[2017-09-10 10:15] VITALS: BP 117/73; PULSE 89; RESP 16; TEMP 97.4; O2SAT 97
[2017-09-10] MEDS ORDERED: SODIUM CHLORIDE 0.9% FLUSH 10 ML FLUSH IVF PRN (10:15)
[2017-09-10 10:30] VITALS: BP 108/64; PULSE 89; RESP 16; O2SAT 97
[2017-09-10 11:00] VITALS: BP 104/66; PULSE 93; RESP 16; O2SAT 96
--- NOTE | 2017-09-10 11:19 | RADRPT ---
EXAM DATE/TIME: 09/10/2017 09:31 [facility] COMPARISON: No previous studies available for comparison. INDICATIONS : Patient presents with oropharyngeal cancer in need of port placement. MEDICAL HISTORY : Diabetes HTN ETOH Oropharyngeal cancer SURGICAL HISTORY : Bilateral carpal tunnel release Neck biopsy ENCOUNTER: Initial ACUITY: 3 months PAIN SCORE: 0/10 FLUORO TIME: 1.1 IMAGE SERIES: 1 SEDATION TIME: 45 minutes ACCESS: Right internal jugular vein SEDATION: 1.) 3 mg midazolam (Versed) IV 2.) 150 mcg fentanyl (Sublimaze) IV Prophylactic antibiotics were administered with appropriate pre-procedure timing. Vancomycin within 2 hours of procedure, Ancef (or alternative) within 1 hour of procedure. DEVICE: 1. 8 Cypriot single lumen [id number] PROCEDURE : 1. Continuous pulse oximetry and EKG monitoring. 2. Intravenous conscious sedation. 3. Ultrasound guidance for venous access. 4. Fluoroscopic guided implantable central venous port placement. The patient was placed supine. The neck was prepped in sterile fashion. Full sterile technique was u sed, including cap, mask, sterile gloves and gown, and a large sterile sheet. Hand hygiene and 2% ch lorhexidine Betadine was utilized per protocol for cutaneous antisepsis with appropriate dry time for site. Sterile gel and sterile probe cover were utilized for ultrasound guidance. The skin and sub cutaneous tissues were infiltrated with local anesthetic solution. Under direct ultrasound guidance, central venous access was accomplished in the targeted vessel. The ultrasound images depicting access guidance were stored and saved to PACS for permanent record. A s ubcutaneous pocket was created using blunt dissection. The port was introduced to the pocket. The c atheter tubing was fed through a subcutaneous tunnel to the venotomy site. The catheter tubing was c ut to a suitable length and then was introduced through a valved Peel-Away sheath and positioned with catheter tubing tip at the cavo-atrial junction level. The pocket incision was closed with subcutic ular Vicryl suture. Steri-Strips were applied. The port was flushed and locked with heparin solutio n per protocol. Sterile dressing was applied to the site. The patient tolerated the procedure well. Conscious sedation was performed with the prescribed dosages and duration as above in the presence of an independent trained radiology nurse to assist in the monitoring of the patient. EKG and oximetry remained stable throughout the procedure. The patient tolerated the procedure well and there were no complications. The patient was sent to post anesthesia recovery in stable condition. CONCLUSION: Uncomplicated ultrasound and fluoroscopic guided implanted central venous port catheter placement as described in detail above. An 8 Cypriot Power port was placed. Ketan Daly MD on September 10, 2017 at 11:17 Board Certified Radiologist. This report was verified electronically.
[2017-09-10 11:30] VITALS: BP 108/68; PULSE 87; RESP 16; O2SAT 96
== END 2017-09-10 12:30 | disposition home or self-care (01) ==
LOC: HROP 07:09 → HRIP 07:11 → HROP 12:30
PROVIDERS: ATTEND Internal Medicine Hematology & Oncology
DX: Z45.2 Encounter for adjustment and management of vascular access device (principal); C77.0 Secondary and unspecified malignant neoplasm of lymph nodes of head, face and neck; C09.1 Malignant neoplasm of tonsillar pillar (anterior) (posterior); I10 Essential (primary) hypertension; E11.9 Type 2 diabetes mellitus without complications; Z79.84 Long term (current) use of oral hypoglycemic drugs
CPT/HCPCS: 36561; 76937; 77001; 85610; 85730; 99152; 99153; C1788; J0690; J1642; J2250; J3010; J3370; J7030; J7050

== ENCOUNTER 2017-09-14 06:00 | Day surgery (SDC) | payer MEDICAID ==
[~2017-09-14] VITALS: Ht 172.7 cm; Wt 81.8 kg
[~2017-09-14 06:00] MED LIST changes: -ATOR40TA16 PO; -CANA100T PO; -CARV12.52 PO; -CITA40TA4 PO; -MIRT1TAB PO
[2017-09-14] MEDS ORDERED: IOHEXOL 350 MG/ML 50 ML BTL (for RAD DIAG) G-TUBE ONE (06:01)
[2017-09-14] MEDS ORDERED: SODIUM CHLORIDE 0.9% 1000 ML IV SCH ×2 (07:00→07:15)
[2017-09-14] MEDS ORDERED: POVIDONE IODINE 5% (ANTISEPSIS KIT) 4 APPLICATIONS EACH NARE SCH (07:15)
[2017-09-14] MEDS ORDERED: ceFAZolin 2 GM PREMIX 50 ML - gastrostomy and jejunostomy initial insertion IV SCH ×2 (07:15→07:30)
[2017-09-14] MEDS ORDERED: CHLORHEXIDINE GLUCONATE 2 % 1 PACK (2 CLOTHS) TOPICAL SCH (07:15)
[2017-09-14 07:20] VITALS: BP 113/79; PULSE 91; RESP 17; TEMP 97.5; O2SAT 97
[2017-09-14] MEDS ORDERED: MIDAZOLAM HCL 2 MG/2 ML VIAL ONE (08:09)
[2017-09-14] MEDS ORDERED: GLUCAGON 1 MG/ML VIAL ONE (08:14)
[2017-09-14 09:10] VITALS: BP 126/84; PULSE 88; RESP 18; TEMP 97.4; O2SAT 93
--- NOTE | 2017-09-14 09:17 | PD.RAD ---
Post Procedure Progress Note Pre Procedure Diagnosis: (1) Head and neck cancer Post Procedure Diagnosis: (1) Head and neck cancer Procedure Date: Sep 14, 2017 Supervising Radiologist: Marcin Vazquez Proceduralist/Assist: Ben Lewis, RT(R), Buzz Cole, RT(R) Anesthesia: Local, Analgesia, Conscious Sedation Plan of Activity Patient to Unit: ROPU Patient Condition: Good See PACS Report for procedural detail/treatment Feeding Tube Gastrostomy Placement Sinhala: 18 Marcin Vazquez MD Sep 14, 2017 09:17
[2017-09-14 09:25] VITALS: BP 119/74; PULSE 81; RESP 18; O2SAT 95
[2017-09-14 09:55] VITALS: BP 113/74; PULSE 82; RESP 16; O2SAT 98
[2017-09-14 10:25] VITALS: BP 107/69; PULSE 79; RESP 18; O2SAT 94
[2017-09-14] MEDS ORDERED: oxyCODONE/ACETAMINOPHEN 5 MG/325 MG TAB PO ONE (11:00)
--- NOTE | 2017-09-14 11:13 | RADRPT ---
EXAM DATE/TIME: 09/14/2017 08:29 [facility] COMPARISON: No previous studies available for comparison.w INDICATIONS : Patient presents with head and neck cancer in need of gastrostomy tube placement for nutrition. MEDICAL HISTORY : DM - uncontrolled recently Anxiety Depression HTN [facility] SURGICAL HISTORY : NEC FAS on L hand knuckle, with debridement in 2014 2 carpal tunnel broken leg (28 y/a) Colonoscopy ENCOUNTER: Subsequent ACUITY: 3 months PAIN SCORE: 0/10 LOCATION: n/a FLUORO TIME: 2.5 minutes IMAGE SERIES: 1 SEDATION TIME: 30 minutes CONTRAST: 10 cc Omnipaque (iohexol) 350 MEDICATION(S): 1.) 3 mg midazolam (Versed) IV 2.) 150 mcg Fentanyl (Sublimaze) IV DEVICE(S): 1.) 18 Fr gastrostomy tube PROCEDURE : 1. Limited abdominal ultrasound. 2. Fluoroscopically guided gastrostomy tube placement. 3. Conscious sedation with continuous EKG and oximetry monitoring. The risks, benefits and alternatives to the procedure were explained and verbal and written consent w as obtained. The site was prepped in sterile fashion. Full sterile technique was used, including ca p, mask, sterile gloves and gown and a large sterile sheet. Hand hygiene and 2% chlorhexidine and/or betadine/alcohol prep was utilized per protocol for cutaneous antisepsis. The skin and subcutaneous tissues were infiltrated with local anesthetic solution. Sterile gel and sterile probe cover were u tilized for ultrasound guidance. Ultrasound was used to christiano the position of the liver. The stomach was insufflated with room air. Th ree percutaneous fasteners were placed to secure the anterior gastric wall. A small incision was made between the fasteners. The stomach was accessed with an 18 gauge needle. A n 0.035 wire was advanced into the small bowel. The tract was dilated. The gastrostomy tube was int roduced through a peel-away sheath. The position was confirmed with an injection of contrast. Conscious sedation was performed with the prescribed dosages and duration as above in the presence of an independent trained radiology nurse to assist in the monitoring of the patient. EKG and oximetry remained stable throughout the procedure. The patient tolerated the procedure well and there were n o complications. The patient was sent to post anesthesia recovery in stable condition. CONCLUSION: Uncomplicated gastrostomy tube placement as above. Marcin Vazquez MD on September 14, 2017 at 11:10 Board Certified Radiologist. This report was verified electronically.
== END 2017-09-14 11:25 | disposition home or self-care (01) ==
LOC: HROP 06:00 → HRIP 06:00 → HROP 11:25
PROVIDERS: ATTEND Internal Medicine Hematology & Oncology
DX: C09.0 Malignant neoplasm of tonsillar fossa (principal); I10 Essential (primary) hypertension; E11.9 Type 2 diabetes mellitus without complications; F41.9 Anxiety disorder, unspecified; F32.9 Major depressive disorder, single episode, unspecified
CPT/HCPCS: 49440; 99152; 99153; C1769; C1887; J0690; J1610; J2250; J3010; J7030; Q9967

== ENCOUNTER 2018-01-21 09:33 | Inpatient (IN) ==
[2018-01-21 10:32] LABS: Baso % (Auto) 0.2 % (0.0-2.0); Eos % (Auto) 0.8 % (0.0-4.0); Hematocrit 28.2 % (39.0-51.0); Hemoglobin 9.9 gm/dL (13.0-17.0); Lymph # (Auto) 0.2 th/mm3 (1.0-4.8); Lymph % (Auto) 7.5 % (9.0-44.0); Mean Corpuscular HGB Conc 35.1 % (32.0-36.0); Mean Corpuscular Hemoglobin 33.2 pg (27.0-34.0); Mean Corpuscular Volume 94.6 fL (80.0-100.0); Mean Platelet Volume 8.4 fL (7.0-11.0); Mono # (Auto) 0.5 th/mm3 (0.0-0.9); Mono % (Auto) 26.4 % (0.0-8.0); Neut # (Auto) 1.3 th/mm3 (1.8-7.7); Neut % (Auto) 65.1 % (16.0-70.0); Platelet Count 78 th/mm3 (150-450); Red Blood Count 2.98 mil/mm3 (4.50-5.90); Red Cell Distribution Width 14.3 % (11.6-17.2)
[2018-01-21 10:45] LABS: Albumin 3.1 g/dL (3.4-5.0); Anion Gap 13 meq/L (5-15); Aspartate Aminotransferase 11 U/L (15-37); Blood Urea Nitrogen 14 mg/dL (7-18); Calcium 8.2 mg/dL (8.5-10.1); Carbon Dioxide 24.9 meq/L (21.0-32.0); Chloride 96 meq/L (98-107); Glomerular Filtration Rate 80 mL/min (>89); Glucose,Random 201 mg/dL (74-106); Potassium 3.5 meq/L (3.5-5.1); Sodium 134 meq/L (136-145)
[2018-01-21 10:47] LABS: Alanine Aminotransferase 13 U/L (12-78)
[2018-01-21 10:48] LABS: Alkaline Phosphatase 56 U/L (45-117); Total Protein 7.4 g/dL (6.4-8.2)
--- NOTE | 2018-01-21 11:06 | XR ---
EXAM DATE: 01/21/2018 11:00 AM EDT AGE/SEX: 62 years / Male INDICATIONS: . Fever. Patient is coughing up phlegm. Left arm pain. CLINICAL DATA: This is the patient's initial encounter. Patient reports that signs and symptoms have been present for 2 days and indicates a pain score of 0/10. MEDICAL/SURGICAL HISTORY: . CA throat and neck. Hypercholesterolemia. Arthritis. Tinnitus. Hype rlipidemia. HTN. Dyspnea. Diabetes. Nectrotizing facitis. Depression. Anxiety. Substance use. . Feed ing tube. Port for Chemo. Carpel tunnel release. Right leg fracture repair. Blood transfusions. COMPARISON: [facility], CT SIMULATION, 01/18/2018. . FINDINGS: No focal pleural or parenchymal opacities. Right IJ [id number] with tip in the very proximal right atrium. Cardiomediastinal contours are within normal limits. Bony thorax is intact. CONCLUSION: 1. No acute cardiopulmonary disease. Electronically signed by: Aleksey Moreno MD 01/21/2018 11:05 AM EDT
--- NOTE | 2018-01-21 11:12 | ED ---
HPI General Chief Complaint: Respiratory Symptoms Stated Complaint: Fever Time Seen by Provider: 01/21/18 10:04 History of Present Illness HPI Narrative: This is a 62-year-old male with a history of head neck cancer, who presents here from the oncology center for fever, tachycardia and productive cough. Patient states that he was waiting to get his radiation treatment and was noted to have severe Reiger like chills. They took him in the back office and checked his temperature which was noted to be over 100, in fact 100.9. Patient has reported productive cough with brown, yellow and blood- tinged sputum. He denies any dysuria. He denies any diarrhea. There are no other complaints at time of examination. Related Data Home Medications Medication Instructions Recorded Confirmed amlodipine 5 mg PO DAILY 01/21/18 01/21/18 hydrocodone-acetaminophen 1 tab PO BID PRN 01/21/18 01/21/18 magnesium oxide 500 mg PO BID 01/21/18 01/21/18 metformin 1,000 mg PO BID 01/21/18 01/21/18 mirtazapine 7.5 mg PO HS 01/21/18 01/21/18 ondansetron HCl [Zofran] 4 mg PO QID PRN 01/21/18 01/21/18 sertraline 100 mg PO DAILY 01/21/18 01/21/18 Allergies Allergy/AdvReac Type Severity Reaction Status Date / Time No Known Allergies Allergy Verified 01/21/18 10:06 Review of Systems ROS: all other systems reviewed are negative Constitutional Reports chills and Reports fever(s) Eyes Reports system reviewed and no additional complaints, except as docu ENT Reports dysphagia, Reports dry mouth and Reports hoarseness Cardiovascular Denies chest pain and Reports dyspnea Respiratory Reports chest congestion, Reports cough, Reports hemoptysis and Reports excessive phlegm production Gastrointestinal Denies diarrhea, Reports nausea and Denies vomiting Genitourinary Denies dysuria and Reports other Musculoskeletal Denies back pain and Denies neck pain Integumentary/Breasts Reports system reviewed and no additional complaints, except as docu and Reports other (Skin burn from radiation to the neck.) Neurologic Denies focal weakness and Reports weakness (Generalized) [facility] Medical History Medical History Cancer of neck (Acute) Depression (Acute) Diabetes (Acute) History of radiation therapy (Acute) Hypertension (Acute) Surgical History Surgical History H/O skin graft (Acute) History of vascular access device (Acute) PEG (percutaneous endoscopic gastrostomy) status (Acute) Status post chemotherapy (Acute) Family History Family History Mother Family history of cancer Social History Social History Substance History: No History of Abuse Smoking Status: Never smoker How Often Do You Have a Drink Containing Alcohol: 4 or more times a week Recent Travel in [facility] within the Last 8 Weeks: No Recent Out of Country Travel within the Last 8 Weeks: No Immunization History Tetanus Immunization: Unsure Hx Influenza Vaccine This Season: Yes Exam Narrative Exam Narrative: GENERAL: Well-developed male in no acute respiratory distress. SKIN: Focused skin assessment warm/dry. Patient does have powers to his neck from radiation treatment. No blistering or draining lesions noted. HEAD: Atraumatic. Normocephalic. EYES: No scleral icterus. No injection or drainage. ENT: No nasal bleeding or discharge. Mucous membranes pink and dry. NECK: Trachea midline. Supple. CARDIOVASCULAR: Sinus tachycardia with rate 115-130. No murmur appreciated. RESPIRATORY: No accessory muscle use. Clear to auscultation. Breath sounds equal bilaterally. No rales appreciated. Decreased respiratory effort. GASTROINTESTINAL: Abdomen soft, non-tender, nondistended. Hepatic and splenic margins not palpable. MUSCULOSKELETAL: No obvious deformities. No clubbing. No cyanosis. No edema. NEUROLOGICAL: Awake and alert. No obvious cranial nerve deficits. Motor grossly within normal limits. Normal speech. Course Initial Documented Vital Signs Temperature 100.9 F H 01/21/18 09:44 Pulse Rate 136 H 01/21/18 09:44 Respiratory Rate 20 01/21/18 09:44 Blood Pressure 111/66 01/21/18 09:44 Pulse Oximetry 99 01/21/18 09:44 Last Documented Vital Signs Temperature 98.1 F 01/21/18 14:19 Pulse Rate 97 H 01/21/18 14:19 Respiratory Rate 20 01/21/18 14:19 Blood Pressure 130/84 01/21/18 14:19 Pulse Oximetry 98 01/21/18 14:19 Medical Decision Making MDM Narrative Medical decision making narrative: 62-year-old male presents today with complaints of fever. The patient was at the oncology center waiting for his radiation treatment when he was noted to have Reiger chills. They found he had a elevated temperature and sent him here for evaluation. Patient reports that he has had a productive cough with yellow brown phlegm. Patient has been able to expectorate phlegm here which is concerning for infection. He has been started on 2 g of cefepime. He has been given 2-1/2 L of IV fluid. His heart rates come down under 100. Case was discussed with Dr. Faith who agrees with the admission. Medical Screen Exam Complete: Yes Emergency Medical Condition: Yes Differential Diagnosis Differential Diagnosis: Sepsis versus pneumonia versus pancytopenia Lab Data Result diagrams: 01/21/18 10:00 01/21/18 10:00 Lab Results 01/21/18 01/21/18 01/21/18 Range/Units 10:00 10:00 10:15 WBC 2.0 L (4.0-11.0) th/mm3 RBC 2.98 L (4.50-5.90) mil/mm3 Hgb 9.9 L (13.0-17.0) gm/dL Hct 28.2 L (39.0-51.0) % MCV 94.6 (80.0-100.0) fL MCH 33.2 (27.0-34.0) pg MCHC 35.1 (32.0-36.0) % RDW 14.3 (11.6-17.2) % Plt Count 78 L D (150-450) th/mm3 MPV 8.4 (7.0-11.0) fL Prelim Diff (Auto) Slide review pending Neut % (Auto) 65.1 (16.0-70.0) % Lymph % (Auto) 7.5 L (9.0-44.0) % [place] % (Auto) 26.4 H (0.0-8.0) % Eos % (Auto) 0.8 (0.0-4.0) % Baso % (Auto) 0.2 (0.0-2.0) % Neut # (Auto) 1.3 L (1.8-7.7) th/mm3 Lymph # (Auto) 0.2 L (1.0-4.8) th/mm3 [place] # (Auto) 0.5 (0.0-0.9) th/mm3 Eos # (Auto) 0.0 (0.0-0.4) th/mm3 Baso # (Auto) 0.0 (0.0-0.2) th/mm3 WBC Differential Manual diff final Seg Neuts % (Manual) 26 (16-70) % Band Neuts % (Manual) 42 H (0-6) % Lymphocytes % (Manual) 17 (9-44) % Monocytes % (Manual) 13 H (0-8) % Eosinophils % (Manual) 2 (0-4) % Abs Neuts (Manual) 1.4 L (1.8-7.7) th/mm3 Differential Comment . Toxic Granulation 2+ H (None) Platelet Estimate Low L (Normal) Platelet Morphology Normal (Normal) Sodium 134 L (136-145) meq/L Potassium 3.5 (3.5-5.1) meq/L Chloride 96 L (98-107) meq/L Carbon Dioxide 24.9 (21.0-32.0) meq/L Anion Gap 13 (5-15) meq/L BUN 14 (7-18) mg/dL Creatinine 0.95 (0.60-1.30) mg/dL Estimated GFR 80 L (>89) mL/min Random Glucose 201 H (74-106) mg/dL Lactic Acid 1.4 (0.4-2.0) mmol/L Calcium 8.2 L (8.5-10.1) mg/dL Total Bilirubin 0.7 (0.2-1.0) mg/dL AST 11 L (15-37) U/L ALT 13 (12-78) U/L Alkaline Phosphatase 56 (45-117) U/L Total Protein 7.4 (6.4-8.2) g/dL Albumin 3.1 L (3.4-5.0) g/dL Urine Color (Yellw/Straw) Urine Clarity (Clear) Urine pH (5.0-8.5) Ur Specific [place] (1.002-1.035) Urine Protein (Neg-Trace) mg/dL Urine Glucose (UA) (Negative) mg/dL Urine Ketones (Negative) mg/dL Urine Occult Blood (Negative) Urine Nitrate (Negative) Urine Bilirubin (Negative) Urine Urobilinogen (Less than 2) mg/dL Ur Leukocyte Esterase (Negative) Urine RBC (0-3) /hpf Urine WBC (0-5) /hpf Ur Squamous Epith Cells (0-5) /hpf Urine Bacteria (None) /hpf Micro UA Comment Urine Culture Comments 01/21/18 Range/Units 13:30 WBC (4.0-11.0) th/mm3 RBC (4.50-5.90) mil/mm3 Hgb (13.0-17.0) gm/dL Hct (39.0-51.0) % MCV (80.0-100.0) fL MCH (27.0-34.0) pg MCHC (32.0-36.0) % RDW (11.6-17.2) % Plt Count (150-450) th/mm3 MPV (7.0-11.0) fL Prelim Diff (Auto) Neut % (Auto) (16.0-70.0) % Lymph % (Auto) (9.0-44.0) % [place] % (Auto) (0.0-8.0) % Eos % (Auto) (0.0-4.0) % Baso % (Auto) (0.0-2.0) % Neut # (Auto) (1.8-7.7) th/mm3 Lymph # (Auto) (1.0-4.8) th/mm3 [place] # (Auto) (0.0-0.9) th/mm3 Eos # (Auto) (0.0-0.4) th/mm3 Baso # (Auto) (0.0-0.2) th/mm3 WBC Differential Seg Neuts % (Manual) (16-70) % Band Neuts % (Manual) (0-6) % Lymphocytes % (Manual) (9-44) % Monocytes % (Manual) (0-8) % Eosinophils % (Manual) (0-4) % Abs Neuts (Manual) (1.8-7.7) th/mm3 Differential Comment Toxic Granulation (None) Platelet Estimate (Normal) Platelet Morphology (Normal) Sodium (136-145) meq/L Potassium (3.5-5.1) meq/L Chloride (98-107) meq/L Carbon Dioxide (21.0-32.0) meq/L Anion Gap (5-15) meq/L BUN (7-18) mg/dL Creatinine (0.60-1.30) mg/dL Estimated GFR (>89) mL/min Random Glucose (74-106) mg/dL Lactic Acid (0.4-2.0) mmol/L Calcium (8.5-10.1) mg/dL Total Bilirubin (0.2-1.0) mg/dL AST (15-37) U/L ALT (12-78) U/L Alkaline Phosphatase (45-117) U/L Total Protein (6.4-8.2) g/dL Albumin (3.4-5.0) g/dL Urine Color Yellow (Yellw/Straw) Urine Clarity Clear (Clear) Urine pH 6.0 (5.0-8.5) Ur Specific [place] 1.005 (1.002-1.035) Urine Protein Negative (Neg-Trace) mg/dL Urine Glucose (UA) 500 or greater (Negative) mg/dL Urine Ketones Trace (Negative) mg/dL Urine Occult Blood Negative (Negative) Urine Nitrate Negative (Negative) Urine Bilirubin Negative (Negative) Urine Urobilinogen Less than 2 (Less than 2) mg/dL Ur Leukocyte Esterase Negative (Negative) Urine RBC 1 (0-3) /hpf Urine WBC 2 (0-5) /hpf Ur Squamous Epith Cells <1 (0-5) /hpf Urine Bacteria Rare H (None) /hpf Micro UA Comment Culture not ind Urine Culture Comments Culture not ind Imaging Data Radiologist's impression: Chest X-Ray 01/21/18 10:09 CONCLUSION: 1. No acute cardiopulmonary disease. Discharge Plan Discharge Disposition Patient Disposition: 30 Still Patient Discharge Details Diagnosis: Sepsis, Pneumonia, Head and neck cancer, Pancytopenia Physicians Team ED Provider: Evangelista Olsen Primary Care Provider: Leia Anderson Attending Provider: Fabiana Bennett Other Providers: David Ramirez Discharge Interventions Interventions: Vital Signs Last Done: 01/21/18 15:00 Status ED Status: Admitted Patient
[2018-01-21 11:25] LABS: Eosinophils 2 % (0-4); Lymphocytes 17 % (9-44); Monocytes 13 % (0-8); Platelet Morphology Normal (Normal); Toxic Granulation 2+
[2018-01-21] MEDS ORDERED: Sodium Chlor 0.9% Inj 500 ML IV.SIG ONE (11:44)
[2018-01-21] MEDS ORDERED: Sod Chloride 0.9% Inj 1,000 ML IV.SIG ONE ×2 (11:44→14:00)
[2018-01-21 13:44] LABS: Bacteria,Urine Rare /hpf; Bilirubin,Urine Negative (Negative); Clarity,Urine Clear (Clear); Color,Urine Yellow (Yellw/Straw); Glucose,Urine (UA) 500 or Greater mg/dL (Negative); Leukocyte Esterase,Urine Negative (Negative); Nitrite,Urine Negative (Negative); Specific Gravity,Urine 1.005 (1.002-1.035); Squamous Epithelial Cell,Urine <1 /hpf (0-5)
[2018-01-21] MEDS ORDERED: Dextrose 50% in Water 50 ML Vial IV.PUSH PRN (13:48)
[2018-01-21] MEDS ORDERED: Sodium Chlor 0.9% Inj 500 ML IV.CONT SCH (14:00)
--- NOTE | 2018-01-21 14:53 | P.HPIM ---
History of Present Illness Primary Care Physician: SANDI Pitt Chief Complaint: fever and chills History of Present Illness: patient is a 62 y/o male with history of oropharynx cancer, hypertension and diabetes presented to ER with fever and chills. he's being followed up by . he says that his last chemo was two weeks ago. he was supposed to have his radiation therapy today but he says that he started to have chills for which he came to ER. he says that he's being having productive cough of reddish sputum for a couple of days. he denies any abdominal pain, diarrhea although had some nausea.he had a fever of 100.9 at the time of presentation to ER. Inpatient Certification: I certify that the inpatient services were ordered in accordance with Medicare regulations governing the order. This includes certification that hospital inpatient services are reasonable and necessary and in the case of services not specified as inpatient-only under 42 CFR 419.22(n), that they are appropriately provided as inpatient services in accordance to with the 2-midnight benchmark under 43 CFR 412.3(e) Estimated Total Length of Stay (Days): 2 Plans for Post Hospital Care: Home Review of Systems All other systems reviewed negative except as stated in HPI PMFSH - History History Provided By: Patient - Medical History Medical History: Medical History (Last Updated 01/21/18 @ 10:17 by Louise Tracy) Cancer of neck Depression Diabetes History of radiation therapy Hypertension - Surgical History Surgical History: Surgical History (Last Updated 01/21/18 @ 10:26 by Patricia Henry RN) H/O skin graft History of vascular access device PEG (percutaneous endoscopic gastrostomy) status Status post chemotherapy - Family History Family History: Family History (Last Updated 01/21/18 @ 14:48 by Fabiana Bennett MD) Mother Family history of cancer - Tobacco History Smoking Status: Never smoker - Alcohol History How Often Do You Have a Drink Containing Alcohol: 4 or more times a week - Substance Use History Substance History: No History of Abuse - Travel History Recent Travel in the [place] Within the Last 8 Weeks: No Recent Travel Out of the Country Within the Last 8 Weeks: No - Immunization History Tetanus Immunization: Unsure Hx Influenza Vaccine This Season: Yes Medications and Allergies Active Medications: Active Medications Acetaminophen (Tylenol) 650 mg PO Q4H PRN PRN Reason: fever/ pain 1-4 Hydrocodone Bitart/Acetaminophen ([place] 7.5/325) 1 tab PO Q6H PRN PRN Reason: pain 5-10 Dextrose (D50w Vial) 50 ml IV.PUSH UNSCH PRN PRN Reason: PER HYPOGLYCEMIA PROTOCOL Glucagon (Glucagon Inj) 1 mg OTHER PRN PRN PRN Reason: for Hypoglycemia Protocol Cefepime HCl 2,000 mg/ Sodium (Chloride) 100 mls @ 200 mls/hr IV.SIG Q8H NICOLE Sodium Chloride (Ns Inj) 1,000 mls @ 84 mls/hr IV.CONT .[id number] NICOLE Insulin Aspart (Novolog Insulin Correctional Sugar Inj) 0 unit SQ ACHS NICOLE; Protocol Mirtazapine (Remeron) 7.5 mg PO HS NICOLE Miscellaneous (Pill Splitter) 1 each OTHER DAILY NICOLE Ondansetron HCl (Zofran Inj) 4 mg IV.PUSH Q8H PRN PRN Reason: nausea Sertraline HCl (Zoloft) 100 mg PO DAILY NICOLE Sodium Chloride (Ns Flush) 2 ml IV.FLUSH PRN PRN PRN Reason: FLUSH AFTER USING IV ACCESS Last Admin: 01/21/18 11:51 Dose: 2 ml Allergies Allergy/AdvReac Type Severity Reaction Status Date / Time No Known Allergies Allergy Verified 01/21/18 10:06 Home Medications Medication Instructions Recorded Confirmed Type amlodipine 5 mg PO DAILY 01/21/18 01/21/18 History hydrocodone-acetaminophen 1 tab PO BID PRN 01/21/18 01/21/18 History magnesium oxide 500 mg PO BID 01/21/18 01/21/18 History metformin 1,000 mg PO BID 01/21/18 01/21/18 History mirtazapine 7.5 mg PO HS 01/21/18 01/21/18 History ondansetron HCl [Zofran] 4 mg PO QID PRN 01/21/18 01/21/18 History sertraline 100 mg PO DAILY 01/21/18 01/21/18 History Exam Vital signs: Vital Signs 01/21/18 09:44 01/21/18 09:56 01/21/18 10:23 Temperature 100.9 F H Pulse Rate 136 H 134 H Respiratory Rate 20 18 Blood Pressure 111/66 Pulse Oximetry 99 98 98 01/21/18 10:30 01/21/18 11:24 01/21/18 11:52 Temperature 100 F H 99.1 F Pulse Rate 109 H 105 H Respiratory Rate 18 15 Blood Pressure 105/70 101/65 Pulse Oximetry 97 97 99 01/21/18 14:19 Temperature 98.1 F Pulse Rate 97 H Respiratory Rate 20 Blood Pressure 130/84 Pulse Oximetry 98 Intake & Output 01/20/18 01/21/18 01/21/18 18:59 06:59 18:59 Intake Total 1500 / 1500 Balance 1500 / 1500 Weight 74.843 kg Intake: IV 1500 / 1500 NS Inj 1,000 ML @ Wide Open IV. 1000 / 1000 SIG BOLUS ONE Rx#:[id number] NS Inj 500 ML @ Wide Open IV. 500 / 500 SIG BOLUS ONE Rx#:[id number] - Constitutional no acute distress - Routine HEENT Exam Eye: Present: PERRL - Routine Neck Exam Present: full ROM - Routine Respiratory Exam Present: CTA bilaterally - Routine Cardiovascular Exam Present: RRR - Routine Abdominal Exam Present: soft (PEG in place.) - Routine Extremities Exam Comments: no pedal edema. - Routine Neurological Exam Present: alert, oriented X3 Results - Labs CBC & Chem 7: 01/21/18 10:00 01/21/18 10:00 Labs: Short CBC 01/21/18 Range/Units 10:00 WBC 2.0 L (4.0-11.0) th/mm3 Hgb 9.9 L (13.0-17.0) gm/dL Hct 28.2 L (39.0-51.0) % Plt Count 78 L D (150-450) th/mm3 BMP 01/21/18 10:00 Sodium 134 L Potassium 3.5 Chloride 96 L Carbon Dioxide 24.9 BUN 14 Creatinine 0.95 Calcium 8.2 L Liver Function 01/21/18 Range/Units 10:00 Total Bilirubin 0.7 (0.2-1.0) mg/dL AST 11 L (15-37) U/L ALT 13 (12-78) U/L Alkaline Phosphatase 56 (45-117) U/L Albumin 3.1 L (3.4-5.0) g/dL Urine 01/21/18 Range/Units 13:30 Urine Color Yellow (Yellw/Straw) Urine Clarity Clear (Clear) Urine pH 6.0 (5.0-8.5) Ur Specific [place] 1.005 (1.002-1.035) Urine Protein Negative (Neg-Trace) mg/dL Urine Glucose (UA) 500 or greater (Negative) mg/dL - Imaging Impressions Chest X-Ray 01/21/18 10:09 CONCLUSION: 1. No acute cardiopulmonary disease. Caprini VTE Risk Assessment Caprini VTE Risk Assessment: Moderate/High Risk (score >= 2) Caprini Risk Assessment Model: Point Value = 1 Point Value = 2 Point Value = 3 Point Value = 5 Age 41-60 Minor surgery BMI > 25 kg/m2 Swollen legs Varicose veins or History of unexplained or recurrent spontaneous Oral contraceptives or hormone replacement Sepsis (< 1 month) Serious lung disease, including pneumonia (< 1 month) Abnormal pulmonary function Acute myocardial infarction Congestive heart failure (< 1 month) History of inflammatory bowel disease Medical patient at bed rest Age 61-74 Arthroscopic surgery Major open surgery (> 45 min) Laparoscopic surgery (> 45 min) Malignancy Confined to bed (> 72 hours) Immobilizing plaster cast Central venous access Age >= 75 History of VTE Family history of VTE Factor V Leiden Prothrombin [id number] Lupus anticoagulant Anticardiolipin antibodies Elevated serum homocysteine Heparin-induced thrombocytopenia Other congenital or acquired thrombophilia Stroke (< 1 month) Elective arthroplasty Hip, pelvis, or leg fracture Acute spinal cord injury (< 1 month) Prophylaxis Regimen: Total Risk Factor Score Risk Level Prophylaxis Regimen 0-1 Low Early ambulation 2 Moderate Order ONE of the following: *Sequential Compression Device (SCD) *Heparin 5000 units SQ BID 3-4 Higher Order ONE of the following medications: *Heparin 5000 units SQ TID *Enoxaparin/Lovenox 40 mg SQ daily (WT < 150 kg, CrCl > 30 mL/min) *Enoxaparin/Lovenox 30 mg SQ daily (WT < 150 kg, CrCl > 10-29 mL/min) *Enoxaparin/Lovenox 30 mg SQ BID (WT < 150 kg, CrCl > 30 mL/min) AND/OR *Sequential Compression Device (SCD) 5 or more Highest Order ONE of the following medications: *Heparin 5000 units SQ TID (Preferred with Epidurals) *Enoxaparin/Lovenox 40 mg SQ daily (WT < 150 kg, CrCl > 30 mL/min) *Enoxaparin/Lovenox 30 mg SQ daily (WT < 150 kg, CrCl > 10-29 mL/min) *Enoxaparin/Lovenox 30 mg SQ BID (WT < 150 kg, CrCl > 30 mL/min) AND *Sequential Compression Device (SCD) Assessment and Plan - Plan A/P - sepsis- suspect pneumonia with recent chemo. continue broad spectrum IV antibiotic ( Cefepime)- follow the cultures and consult Oncology. -oropharynx cancer- on chemo and radiation ( didn't have his radiation today because of fever) will consult Oncology ( ). -hypertension- with low-normal BP; hold home BP meds for now- will monitor. -diabetes mellitus; start on accu-check with SSI -dysphagia- PEG in place; will consult press cutter for tube feeding. -leukopenia/ thrombocytopenia- due to chemo- will monitor. -DVT prophylaxis with SCD's Discussed Condition With: ER physician and the patient.
[2018-01-21] MEDS: Sod Chloride 0.9% Inj 1,000 ML IV.CONT SCH (15:29)
--- NOTE | 2018-01-21 17:36 | P.DIET ---
Nutritional Evaluation Type of nutrition evaluation: initial Nutrition consult regarding: Tube Feeding [place] [facility] [place] [facility] [place] Subjective Barriers to Nutrition: Swallowing problem Objective - Diagnosis Sepsis, Pneumonia, Head and Neck Cancer - Objective [place] body weight: 70 kg % IBW: 107 Body Weight Used for Calculations: Actual (74.843 kg) Energy Needs - Lower Range (kCal/kg): 25 Energy Needs - Upper Range (kCal/kg): 30 Lower Limit kCal/kg (kCals): 1,871 Upper Limit kCal/kg (kCals): 2,245 Lower Limit Protein Factor (Grams per Kg): 1.1 Upper Limit Protein Factor (Grams per Kg): 1.4 Lower Protein Needs (Protein): 82 Upper Protein Needs (Protein): 105 Fluid Factor (ml/kg): 30 Estimated Fluid Needs (ml): 2,245 Dietitian Reviewed in Medical Record: Curent medications, Intake & Output, Labs , Medical history Diet Order: NPO Objective Comments: PMH Includes: Cancer of Neck, Depression, DM, HTN, h/o radiation treatments; last chemo therapy 2-weeks ago; peg-tube in place [place] Glucose 201 Assessment Assessment: Pt is at nutritional risk r/t diagnosis and need for TF'ing. For TF'ing, Rec Glucerna 1.5, start @ 35ml/hr, increase 10ml Q 4-hr, as tolerated, to goal rate 55ml/hr to offer 1980 kcal, 108.9g Protein and 1002ml free water. Free Water Flushes per MD. Labs reviewed. Additional recs to follow r/t clinical course. Recommendations: 1. For TF'ing, Rec Glucerna 1.5, start @ 35ml/hr, increase 10ml Q 4-hr, as tolerated, to goal rate 55ml/hr 2. Free Water Flushes per MD 3. Additional recs to follow r/t clinical course Dietitian to Monitor: Lab values, Electrolytes, Glucose level, Intake & Output, Tube feeding tolerance, Weight change, Medical course
[2018-01-21] MEDS: Insulin NovoLOG Aspart Correctional Sugar Inj SQ SCH ×2 (17:54→22:12)
[2018-01-21] MEDS: Acetaminophen 325 MG Tablet PO PRN (22:11)
[2018-01-21] MEDS: Mirtazapine 15 MG Tablet PO SCH (22:12)
[2018-01-22] MEDS: Sod Chloride 0.9% Inj 1,000 ML IV.CONT SCH ×4 (02:37→20:24)
[2018-01-22] MEDS: Acetaminophen 325 MG Tablet PO PRN (05:57)
[2018-01-22 07:20] LABS: Baso % (Auto) 0.3 % (0.0-2.0); Eos % (Auto) 2.2 % (0.0-4.0); Hematocrit 24.4 % (39.0-51.0); Hemoglobin 8.3 gm/dL (13.0-17.0); Lymph # (Auto) 0.2 th/mm3 (1.0-4.8); Lymph % (Auto) 10.9 % (9.0-44.0); Mean Corpuscular HGB Conc 34.1 % (32.0-36.0); Mean Corpuscular Hemoglobin 32.8 pg (27.0-34.0); Mean Corpuscular Volume 96.2 fL (80.0-100.0); Mean Platelet Volume 8.5 fL (7.0-11.0); Mono # (Auto) 0.5 th/mm3 (0.0-0.9); Mono % (Auto) 31.7 % (0.0-8.0); Neut # (Auto) 0.9 th/mm3 (1.8-7.7); Neut % (Auto) 54.9 % (16.0-70.0); Platelet Count 78 th/mm3 (150-450); Red Blood Count 2.54 mil/mm3 (4.50-5.90); Red Cell Distribution Width 14.5 % (11.6-17.2); White Blood Count 1.6 th/mm3 (4.0-11.0)
--- NOTE | 2018-01-22 08:06 | P.CON ---
History of Present Illness Service: Hematology/oncology Consult date: 01/22/18 Requesting Physician: Fabiana Bennett Reason for Consult: Diagnosis of oropharyngeal squamous cell carcinoma. Sepsis. Myelosuppress Primary Care Provider: SANDI Pitt Chief Complaint: Fevers, chills, weakness, soreness in the throat. History of Present Illness: Mr. Choi is a very pleasant 62-year-old man who is well-known to me from my outpatient oncology service. Mr. 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 Initial presentation was that of a large mass on the right side of the neck and pain with swallowing. He is clinically and radiographically assessed to have T3 N3 M0; stage IVb disease. The patient was initially treated with neoadjuvant systemic therapy with carboplatin and Taxol for total of 6 cycles (there were significant delays in him undergoing tooth extraction which necessitated systemic therapy to prevent disease progression). The patient was initiated on combined definitive systemic chemotherapy with radiation; full dose cisplatin at 100 mg per metered squared in December 2017. He has thus far received 2 cycles of cisplatin, he has approximately 12 fractions of radiation remaining. On Sunday, Sunday, 01/09/20182017 the patient reports noting chills he reports having severe soreness in the throat with inability to swallow any liquids or solids. He has been relying solely on his PEG tube for nutritional requirements. On 01/21/2018 he presented to [facility] radiation oncology for radiation treatment, on intake he was noted to have a fever of 100.9 degrees Fahrenheit and was referred to the emergency department because he was also having chills at that time. The patient was assessed in the emergency department, he was clinically assessed to have dehydration and sepsis, he was initiated on broad-spectrum antibiotic coverage with cefepime at neutropenic doses, he was initiated on IV fluids and was admitted. A chest x-ray performed on 01/21/2018 revealed no acute findings. Review of Systems Constitutional: Reports anorexia, Reports chills, Reports fatigue, Reports fever (s), Reports lack of energy, Reports malaise, Reports weakness, Reports weight loss Eyes: Denies blind spots, Denies double vision Ears, Nose, Mouth, and Throat: Reports change in voice, Reports difficulty swallowing, Reports dry mouth, Denies abnormal hearing Comments: Soreness in the throat. Coughing up thick phlegm with blood-tinged. Cardiovascular: Reports shortness of breath, Reports shortness of breath causing sudden awakening, Denies chest pain Respiratory: Reports change in phlegm color, Reports chest congestion, Reports cough, Reports excessive phlegm production, Denies coughing up blood Gastrointestinal: Reports vomiting, Denies abdominal pain, Denies black, tarry stools, Denies bright, red blood in stools Genitourinary: Denies blood in urine Musculoskeletal: Denies abnormal walking Neurologic: Denies abnormal hearing, Denies abnormal speech, Denies abnormal walking Psychiatric: Reports change in appetite, Denies abnormal sleep pattern Endocrine: Denies cold intolerance Hematologic/Lymphatic: Denies easy bleeding Allergic/Immunologic: Denies GI upset with certain foods PMFSH - History History Provided By: Patient, Family Member - Medical History Medical History: Medical History (Last Updated 01/22/18 @ 07:58 by David Ramirez MD) Depression Diabetes History of radiation therapy Hypertension 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 - Surgical History Surgical History: Surgical History (Last Updated 01/21/18 @ 10:26 by Patricia Henry RN) H/O skin graft History of vascular access device PEG (percutaneous endoscopic gastrostomy) status Status post chemotherapy - Family History Family History: Family History (Last Updated 01/21/18 @ 14:48 by Fabiana Bennett MD) Mother Family history of cancer - Tobacco History Second Hand Smoke Exposure: No Smoking Status: Never smoker - Alcohol History How Often Do You Have a Drink Containing Alcohol: 4 or more times a week - Substance Use History Substance History: No History of Abuse - Travel History Recent Travel in the [facility] Within the Last 8 Weeks: No Recent Travel Out of the Country Within the Last 8 Weeks: No - Immunization History Tetanus Immunization: Unsure Hx Influenza Vaccine This Season: Yes Medications and Allergies Active Medications: Active Medications Acetaminophen (Tylenol) 650 mg PO Q4H PRN PRN Reason: fever/ pain 1-4 Last Admin: 01/22/18 05:57 Dose: 650 mg Hydrocodone Bitart/Acetaminophen ([place] 7.5/325) 1 tab PO Q6H PRN PRN Reason: pain 5-10 Last Admin: 01/22/18 05:57 Dose: 1 tab Dextrose (D50w Vial) 50 ml IV.PUSH UNSCH PRN PRN Reason: PER HYPOGLYCEMIA PROTOCOL Filgrastim (Neupogen Inj) 480 mcg SQ ONCE ONE Stop: 01/22/18 07:51 Glucagon (Glucagon Inj) 1 mg OTHER PRN PRN PRN Reason: for Hypoglycemia Protocol Cefepime HCl 2,000 mg/ Sodium (Chloride) 100 mls @ 200 mls/hr IV.SIG Q8H [facility]ICOLE Last Infusion: 01/22/18 05:15 Dose: Infused Sodium Chloride (Ns Inj) 1,000 mls @ 100 mls/hr IV.CONT .Q10H NICOLE Last Admin: 01/22/18 03:30 Dose: 100 mls/hr Insulin Aspart (Novolog Insulin Correctional Sugar Inj) 0 unit SQ ACHS NICOLE; Protocol Last Admin: 01/21/18 22:12 Dose: 3 unit Mirtazapine (Remeron) 7.5 mg PO HS NICOLE Last Admin: 01/21/18 22:12 Dose: 7.5 mg Miscellaneous (Pill Splitter) 1 each OTHER DAILY NICOLE Ondansetron HCl (Zofran Inj) 4 mg IV.PUSH Q8H PRN PRN Reason: nausea Sertraline HCl (Zoloft) 100 mg PO DAILY NICOLE Sodium Chloride (Ns Flush) 2 ml IV.FLUSH PRN PRN PRN Reason: FLUSH AFTER USING IV ACCESS Last Admin: 01/21/18 11:51 Dose: 2 ml Allergies Allergy/AdvReac Type Severity Reaction Status Date / Time No Known Allergies Allergy Verified 01/21/18 10:06 Home Medications Medication Instructions Recorded Confirmed Type amlodipine 5 mg PO DAILY 01/21/18 01/21/18 History hydrocodone-acetaminophen 1 tab PO BID PRN 01/21/18 01/21/18 History magnesium oxide 500 mg PO BID 01/21/18 01/21/18 History metformin 1,000 mg PO BID 01/21/18 01/21/18 History mirtazapine 7.5 mg PO HS 01/21/18 01/21/18 History ondansetron HCl [Zofran] 4 mg PO QID PRN 01/21/18 01/21/18 History sertraline 100 mg PO DAILY 01/21/18 01/21/18 History Physical Exam Vital signs: Vital Signs 01/21/18 09:44 01/21/18 09:56 01/21/18 10:23 Temperature 100.9 F H Pulse Rate 136 H 134 H Respiratory Rate 20 18 Blood Pressure 111/66 Pulse Oximetry 99 98 98 01/21/18 10:30 01/21/18 11:24 01/21/18 11:52 Temperature 100 F H 99.1 F Pulse Rate 109 H 105 H Respiratory Rate 18 15 Blood Pressure 105/70 101/65 Pulse Oximetry 97 97 99 01/21/18 14:19 01/21/18 15:00 01/21/18 18:07 Temperature 98.1 F Pulse Rate 97 H 101 H 110 H Respiratory Rate 20 18 18 Blood Pressure 130/84 119/83 148/65 H Pulse Oximetry 98 99 96 01/21/18 20:00 01/22/18 00:00 01/22/18 04:00 Temperature 102.6 F H 99.1 F 101.2 F H Pulse Rate 118 H 99 H 106 H Respiratory Rate 20 20 20 Blood Pressure 100/65 109/74 103/73 Pulse Oximetry 98 98 99 Intake & Output 01/21/18 01/22/18 01/22/18 18:59 06:59 18:59 Intake Total 3180 / 3180 1200 / 1200 Output Total 250 / 250 900 / 900 Balance 2930 / 2930 300 / 300 Weight 72.7 kg 73.9 kg Intake: IV 2600 / 2600 1200 / 1200 NS Inj 1,000 ML @ 100 mls/hr IV 1000 / 1000 .CONT .Q10H [facility] Rx#:[id number] Maxipime Inj 2,000 MG In NS Inj 100 / 100 200 / 200 100 ML @ 200 mls/hr IV.SIG Q8H [facility] Rx#:[id number] NS Inj 1,000 ML @ Wide Open IV. 1999 / 1999 SIG BOLUS ONE Rx#:[id number] NS Inj 500 ML @ Wide Open IV. 500 / 500 SIG BOLUS ONE Rx#:[id number] Oral 0 / 0 Tube Feeding 460 / 460 Water Bolus Amount 120 / 120 Output: Urine 250 / 250 900 / 900 Other: Date of Last Bowel Movement 01/11/18 # Bowel Movements 0 Weight On Admission 72.7 kg - Constitutional Comments: Middle-aged male, sitting up in bed, significant weight loss noted. Not acutely distressed but he is in discomfort, he is coughing up thick yellow phlegm with tinges of blood. - Routine HEENT Exam Head: Absent: normocephalic, atraumatic Eye: Present: EOMI, PERRL Comments: Oropharyngeal examination reveals removal of his teeth, dry mucous membranes, dried thickened phlegm appreciated involving the soft and hard palate. The large mass involving the right side of the soft palate/tonsillar arch is no longer present. No active bleeding is noted. - Routine Neck Exam Absent: supple, full ROM - Routine Respiratory Exam Absent: accessory muscle use - Routine Cardiovascular Exam Present: RRR, S1, S2 - Routine Abdominal Exam Present: soft. Absent: tenderness, distended Comments: PEG tube in place. No organ enlargement. Positive bowel sounds. - Routine Extremities Exam Absent: cyanosis, clubbing, full ROM, pulses intact, extremity cold to touch - Routine Skin Exam Present: intact. Absent: erythema, dry - Routine Neurological Exam Present: alert, oriented X3, CN II-XII intact. Absent: sensory deficit, motor deficit - Detailed Neurological Exam: Coma Scale Eye Opening: Spontaneous - Routine Psychiatric Exam Comments: Affect is appropriate given his clinical condition and present circumstance of acute illness, fever and hospitalization. Assessment and Plan - Plan Mr. 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 He had no evidence of distal metastases. Based on radiographic imaging studies as well as clinical examination he was assessed to have T3 N3 M0; stage IVb disease. Because he was unable to initiate definitive dose combined chemoradiotherapy at the onset due to extensive dental work which needed to be done and multiple tooth extractions he was treated with multiple cycles of neoadjuvant systemic therapy consisting of carboplatin and Taxol. After 6 cycles he was initiated on combined chemoradiotherapy with full dose cisplatin in December 2017. He has approximately 12 fractions of radiation remaining and one cycle of full dose cisplatin remaining. This patient was transferred to [facility] emergency department on 2017 because he was found to have a fever of 100.9F at the radiation oncology center yesterday. The patient reports having had chills and sweats going back to 01/19/2018. Due to significant mucositis related to radiation he has not been able to eat or drink much over the past several days. He is relying completely on tube feeding via PEG tube to meet his nutritional requirements and fluid requirements for hydration. On initial presentation he was clinically dehydrated and was septic with his fevers, he has had high spiking fevers overnight as well to 102.9F. Recommendations: 1. Oropharyngeal squamous cell carcinoma (locally advanced): For the time being chemotherapy and radiation will be put on hold to allow the patient to recover from his sepsis. 2. Sepsis/febrile illness: Blood cultures were drawn yesterday, I requested additional blood cultures from his port. Continue cefepime at current dose of 2 g IV every 8 hours. Because he continues to have fevers I will add on gram- positive coverage with vancomycin 1 g every 12 hours. 3. Myelosuppression: Secondary to intensive chemotherapy, because his absolute neutrophil count has dropped down to 0.9 as of today I have recommended single dose of Neupogen 480 mcg subcu 1 today. For management of thrombocytopenia and anemia (should this worsen) transfusions will be recommended. 4. Nutrition: He has been on tube feeding at home, I have advised/ordered resumption of tube feeds; Glucerna 1.5 bolus feeds which the patient can self administer up to 5 cans daily. 5. Hydration: Continue normal saline 100 cc/h. 6. Initiate DVT prophylaxis with Lovenox 40 mg subcu once daily provided his renal function is normal, continue this along with his platelet counts remain over 50,000. The oncology service will follow along with you.
[2018-01-22 08:57] LABS: Eosinophils 1 % (0-4); Lymphocytes 19 % (9-44); Metamyelocytes 1 % (0-1); Monocytes 16 % (0-8); Myelocytes 1 % (0-0); Platelet Morphology Normal (Normal); Promyelocyte 1 % (0-0)
[2018-01-22] MEDS ORDERED: Vancomycin Inj 1,000 MG in Sodium Chlor 0.9% Inj 250 ML IV.SIG SCH (09:00)
[2018-01-22] MEDS ORDERED: Vancomycin Consult Pharmacy OTHER PRN (09:42)
--- NOTE | 2018-01-22 09:42 | P.PNIM ---
Subjective Interval history: f/u; sepsis in no acute distress. says that his sob is better but still with productive cough. Tmax 102.6. Physical Exam Vital signs: Vital Signs 01/21/18 09:44 01/21/18 09:56 01/21/18 10:23 Temperature 100.9 F H Pulse Rate 136 H 134 H Respiratory Rate 20 18 Blood Pressure 111/66 Pulse Oximetry 99 98 98 01/21/18 10:30 01/21/18 11:24 01/21/18 11:52 Temperature 100 F H 99.1 F Pulse Rate 109 H 105 H Respiratory Rate 18 15 Blood Pressure 105/70 101/65 Pulse Oximetry 97 97 99 01/21/18 14:19 01/21/18 15:00 01/21/18 18:07 Temperature 98.1 F Pulse Rate 97 H 101 H 110 H Respiratory Rate 20 18 18 Blood Pressure 130/84 119/83 148/65 H Pulse Oximetry 98 99 96 01/21/18 20:00 01/22/18 00:00 01/22/18 04:00 Temperature 102.6 F H 99.1 F 101.2 F H Pulse Rate 118 H 99 H 106 H Respiratory Rate 20 20 20 Blood Pressure 100/65 109/74 103/73 Pulse Oximetry 98 98 99 01/22/18 08:00 Temperature Pulse Rate Respiratory Rate 20 Blood Pressure Pulse Oximetry Intake & Output 01/21/18 01/22/18 01/22/18 18:59 06:59 18:59 Intake Total 3180 / 3180 1200 / 1200 Output Total 250 / 250 900 / 900 Balance 2930 / 2930 300 / 300 Weight 72.7 kg 73.9 kg Intake: IV 2600 / 2600 1200 / 1200 NS Inj 1,000 ML @ 100 mls/hr IV 1000 / 1000 .CONT .Q10H [facility] Rx#:[id number] Maxipime Inj 2,000 MG In NS Inj 100 / 100 200 / 200 100 ML @ 200 mls/hr IV.SIG Q8H [facility] Rx#:[id number] NS Inj 1,000 ML @ Wide Open IV. 1999 / 1999 SIG BOLUS ONE Rx#:[id number] NS Inj 500 ML @ Wide Open IV. 500 / 500 SIG BOLUS ONE Rx#:[id number] Oral 0 / 0 Tube Feeding 460 / 460 Water Bolus Amount 120 / 120 Output: Urine 250 / 250 900 / 900 Other: Date of Last Bowel Movement 01/11/18 01/11/18 # Bowel Movements 0 Weight On Admission 72.7 kg - Constitutional no acute distress - Routine Respiratory Exam Present: CTA bilaterally - Routine Cardiovascular Exam Present: RRR - Routine Abdominal Exam Present: soft Comments: PEG in place. - Routine Extremities Exam Comments: no pedal edema. - Routine Neurological Exam Present: alert, oriented X3 Results - Labs CBC & Chem 7: 01/22/18 05:53 01/21/18 10:00 Laboratory Results - last 24 hr 01/21/18 01/21/18 01/21/18 10:00 10:00 10:15 WBC 2.0 L RBC 2.98 L Hgb 9.9 L Hct 28.2 L MCV 94.6 MCH 33.2 MCHC 35.1 RDW 14.3 Plt Count 78 L D MPV 8.4 Prelim Diff (Auto) Slide review pending Neut % (Auto) 65.1 Lymph % (Auto) 7.5 L [facility] % (Auto) 26.4 H Eos % (Auto) 0.8 Baso % (Auto) 0.2 Neut # (Auto) 1.3 L Lymph # (Auto) 0.2 L [facility] # (Auto) 0.5 Eos # (Auto) 0.0 Baso # (Auto) 0.0 WBC Differential Manual diff final Seg Neuts % (Manual) 26 Band Neuts % (Manual) 42 H Lymphocytes % (Manual) 17 Monocytes % (Manual) 13 H Eosinophils % (Manual) 2 Metamyelocytes % (Man) Myelocytes % (Man) Promyelocytes % (Man) Abs Neuts (Manual) 1.4 L Differential Comment . Toxic Granulation 2+ H Platelet Estimate Low L Platelet Morphology Normal Sodium 134 L Potassium 3.5 Chloride 96 L Carbon Dioxide 24.9 Anion Gap 13 BUN 14 Creatinine 0.95 Estimated GFR 80 L POC Glucose Random Glucose 201 H Lactic Acid 1.4 Calcium 8.2 L Total Bilirubin 0.7 AST 11 L ALT 13 Alkaline Phosphatase 56 Total Protein 7.4 Albumin 3.1 L Urine Color Urine Clarity Urine pH Ur Specific [place] Urine Protein Urine Glucose (UA) Urine Ketones Urine Occult Blood Urine Nitrate Urine Bilirubin Urine Urobilinogen Ur Leukocyte Esterase Urine RBC Urine WBC Ur Squamous Epith Cells Urine Bacteria Micro UA Comment Urine Culture Comments 01/21/18 01/21/18 01/22/18 13:30 20:45 05:53 WBC 1.6 L RBC 2.54 L Hgb 8.3 L Hct 24.4 L MCV 96.2 MCH 32.8 MCHC 34.1 RDW 14.5 Plt Count 78 L MPV 8.5 Prelim Diff (Auto) Slide review pending Neut % (Auto) 54.9 Lymph % (Auto) 10.9 [facility] % (Auto) 31.7 H Eos % (Auto) 2.2 Baso % (Auto) 0.3 Neut # (Auto) 0.9 L Lymph # (Auto) 0.2 L [facility] # (Auto) 0.5 Eos # (Auto) 0.0 Baso # (Auto) 0.0 WBC Differential Manual diff final Seg Neuts % (Manual) 34 Band Neuts % (Manual) 27 H Lymphocytes % (Manual) 19 Monocytes % (Manual) 16 H Eosinophils % (Manual) 1 Metamyelocytes % (Man) 1 Myelocytes % (Man) 1 H Promyelocytes % (Man) 1 H Abs Neuts (Manual) 1.0 L Differential Comment . Toxic Granulation Platelet Estimate Low L Platelet Morphology Normal Sodium Potassium Chloride Carbon Dioxide Anion Gap BUN Creatinine Estimated GFR POC Glucose 245 H Random Glucose Lactic Acid Calcium Total Bilirubin AST ALT Alkaline Phosphatase Total Protein Albumin Urine Color Yellow Urine Clarity Clear Urine pH 6.0 Ur Specific [place] 1.005 Urine Protein Negative Urine Glucose (UA) 500 or greater Urine Ketones Trace Urine Occult Blood Negative Urine Nitrate Negative Urine Bilirubin Negative Urine Urobilinogen Less than 2 Ur Leukocyte Esterase Negative Urine RBC 1 Urine WBC 2 Ur Squamous Epith Cells <1 Urine Bacteria Rare H Micro UA Comment Culture not ind Urine Culture Comments Culture not ind 01/22/18 07:57 WBC RBC Hgb Hct MCV MCH MCHC RDW Plt Count MPV Prelim Diff (Auto) Neut % (Auto) Lymph % (Auto) [facility] % (Auto) Eos % (Auto) Baso % (Auto) Neut # (Auto) Lymph # (Auto) [facility] # (Auto) Eos # (Auto) Baso # (Auto) WBC Differential Seg Neuts % (Manual) Band Neuts % (Manual) Lymphocytes % (Manual) Monocytes % (Manual) Eosinophils % (Manual) Metamyelocytes % (Man) Myelocytes % (Man) Promyelocytes % (Man) Abs Neuts (Manual) Differential Comment Toxic Granulation Platelet Estimate Platelet Morphology Sodium Potassium Chloride Carbon Dioxide Anion Gap BUN Creatinine Estimated GFR POC Glucose 159 H Random Glucose Lactic Acid Calcium Total Bilirubin AST ALT Alkaline Phosphatase Total Protein Albumin Urine Color Urine Clarity Urine pH Ur Specific [place] Urine Protein Urine Glucose (UA) Urine Ketones Urine Occult Blood Urine Nitrate Urine Bilirubin Urine Urobilinogen Ur Leukocyte Esterase Urine RBC Urine WBC Ur Squamous Epith Cells Urine Bacteria Micro UA Comment Urine Culture Comments Microbiology 01/21/18 10:20 Sputum - Expectorated Sputum Gram Stain - Final 01/21/18 10:51 Nasal Wash Influenza Types A,B Antigen - Final Negative for FLU A and B antigen Infection due to influenza A or B cannot be ruled out since the antigen present in the sample may be below the detection limit of the test. - Imaging Impressions Chest X-Ray 01/21/18 10:09 CONCLUSION: 1. No acute cardiopulmonary disease. Assessment and Plan - Plan A/P - sepsis- suspect pneumonia with recent chemo. continue broad spectrum IV antibiotic ( Cefepime and Vanco)- follow the cultures . oncology consult appreciated. -oropharynx cancer- on chemo and radiation ( didn't have his radiation today because of fever) oncology consult as noted above. -hypertension- with low-normal BP; hold home BP meds for now- will monitor. -diabetes mellitus; started on accu-check with SSI -dysphagia- PEG in place; continue with tube feeding. -leukopenia/ thrombocytopenia- due to chemo-received a dose of Neupogen today- will monitor. -DVT prophylaxis with Subq lovenox. -consult PT. Discharge Planning: still febrile/ not ready for discharge.
[2018-01-22] MEDS: Enoxaparin Inj 40 MG/0.4 ML Syringe SQ SCH (12:07)
[2018-01-22] MEDS: Insulin NovoLOG Aspart Correctional Sugar Inj SQ SCH ×4 (12:07→22:16)
[2018-01-22] MEDS: Sertraline 100 MG Tablet PO SCH (12:08)
[2018-01-22] MEDS: Mirtazapine 15 MG Tablet PO SCH (22:17)
[2018-01-22] MEDS: Vancomycin Inj 1,250 MG in Sodium Chlor 0.9% Inj 250 ML IV.SIG SCH (22:19)
[2018-01-23] MEDS: Sod Chloride 0.9% Inj 1,000 ML IV.CONT SCH (06:50)
--- NOTE | 2018-01-23 07:38 | P.PNONC ---
Subjective Interval history: Patient seen and examined, vital signs, labs and medications reviewed, microbiology reviewed as well. Sputum cultures positive for gram-positive cocci. Patient has remained afebrile over the past 24 hours. Subjectively; he reports feeling improved, yesterday he administered 1000 cc tube feeding. He remains on IV fluids. He remains on empiric antibiotic therapy with cefepime and vancomycin. Objective Vital Signs/Intake & Output: Vital Signs 01/22/18 08:00 01/22/18 12:00 01/22/18 12:06 Temperature 98.3 F 98.4 F Pulse Rate 103 H 102 H Respiratory Rate 18 18 Blood Pressure 101/66 93/71 L Pulse Oximetry 97 100 96 01/22/18 16:00 01/22/18 20:00 01/23/18 00:00 Temperature 98.0 F 99.0 F 99.2 F Pulse Rate 110 H 113 H 108 H Respiratory Rate 18 20 20 Blood Pressure 112/65 110/64 106/65 Pulse Oximetry 98 100 98 01/23/18 04:00 Temperature 98.7 F Pulse Rate 93 H Respiratory Rate 18 Blood Pressure 113/71 Pulse Oximetry 95 Intake & Output 01/22/18 01/23/18 01/23/18 18:59 06:59 18:59 Intake Total 3360 / 3360 462.5 / 462.5 Output Total 850 / 850 1200 / 1200 Balance 2510 / 2510 -737.5 / -737.5 Weight 71.7 kg Intake: IV 1350 / 1350 462.5 / 462.5 NS Inj 1,000 ML @ 50 mls/hr IV. 1000 / 1000 CONT .Q20H NICOLE Rx#:[id number] Maxipime Inj 2,000 MG In NS Inj 100 / 100 200 / 200 100 ML @ 200 mls/hr IV.SIG Q8H NICOLE Rx#:[id number] Vancomycin Inj 1,000 MG In NS 250 / 250 Inj 250 ML @ 250 mls/hr IV.SIG Q12H NICOLE Rx#:[id number] Vancomycin Inj 1,250 MG In NS 262.5 / 262.5 Inj 250 ML @ 250 mls/hr IV.SIG Q12H NICOLE Rx#:[id number] Oral 0 / 0 0 / 0 Tube Feeding 1000 / 1000 Water Bolus Amount 120 / 120 Other 890 / 890 Output: Urine 850 / 850 1200 / 1200 Other: Other Intake Source Saline Solution Date of Last Bowel Movement 01/11/18 # Bowel Movements 1 0 Result Diagrams: 01/22/18 05:53 01/21/18 10:00 Laboratory Results: Laboratory Results - last 24 hr 01/22/18 01/22/18 01/22/18 05:53 07:57 12:29 WBC 1.6 L RBC 2.54 L Hgb 8.3 L Hct 24.4 L MCV 96.2 MCH 32.8 MCHC 34.1 RDW 14.5 Plt Count 78 L MPV 8.5 Prelim Diff (Auto) Slide review pending Neut % (Auto) 54.9 Lymph % (Auto) 10.9 [place] % (Auto) 31.7 H Eos % (Auto) 2.2 Baso % (Auto) 0.3 Neut # (Auto) 0.9 L Lymph # (Auto) 0.2 L [place] # (Auto) 0.5 Eos # (Auto) 0.0 Baso # (Auto) 0.0 WBC Differential Manual diff final Seg Neuts % (Manual) 34 Band Neuts % (Manual) 27 H Lymphocytes % (Manual) 19 Monocytes % (Manual) 16 H Eosinophils % (Manual) 1 Metamyelocytes % (Man) 1 Myelocytes % (Man) 1 H Promyelocytes % (Man) 1 H Abs Neuts (Manual) 1.0 L Differential Comment . Platelet Estimate Low L Platelet Morphology Normal POC Glucose 159 H 184 H 01/22/18 01/22/18 17:21 20:09 WBC RBC Hgb Hct MCV MCH MCHC RDW Plt Count MPV Prelim Diff (Auto) Neut % (Auto) Lymph % (Auto) [place] % (Auto) Eos % (Auto) Baso % (Auto) Neut # (Auto) Lymph # (Auto) [place] # (Auto) Eos # (Auto) Baso # (Auto) WBC Differential Seg Neuts % (Manual) Band Neuts % (Manual) Lymphocytes % (Manual) Monocytes % (Manual) Eosinophils % (Manual) Metamyelocytes % (Man) Myelocytes % (Man) Promyelocytes % (Man) Abs Neuts (Manual) Differential Comment Platelet Estimate Platelet Morphology POC Glucose 160 H 121 H Culture Results: Microbiology 01/21/18 10:00 Aerobic Blood Culture - Preliminary Blood - Peripheral No growth in 1 day Anaerobic Blood Culture - Preliminary No growth in 1 day 01/21/18 09:50 Aerobic Blood Culture - Preliminary Blood - Peripheral No growth in 1 day Anaerobic Blood Culture - Preliminary No growth in 1 day 01/21/18 10:20 Gram Stain - Final Sputum - Expectorated Sputum Sputum Culture - Preliminary Staphylococcus aureus 01/21/18 10:51 Influenza Types A,B Antigen - Final Nasal Wash Negative for FLU A and B antigen Infection due to influenza A or B cannot be ruled out since the antigen present in the sample may be below the detection limit of the test. Medications: Active Medications Generic Name Dose Route Start Last Admin Trade Name Freq PRN Reason Stop Dose Admin Acetaminophen 650 mg 01/21/18 13:50 01/22/18 05:57 Tylenol PO 650 mg Q4H PRN Administration fever/ pain 1-4 Hydrocodone Bitart/Acetaminophen 1 tab 01/21/18 13:50 01/22/18 22:17 [place] 7.5/325 PO 1 tab Q6H PRN Administration pain 5-10 Enoxaparin Sodium 40 mg 01/22/18 09:00 01/22/18 12:07 Lovenox Inj SQ 40 mg DAILY NICOLE Administration Cefepime HCl 2,000 mg/ Sodium 100 mls @ 200 mls/hr 01/21/18 21:00 01/23/18 06 :12 Chloride IV.SIG Infused Q8H NICOLE Infusion Sodium Chloride 1,000 mls @ 50 mls/hr 01/21/18 15:00 01/23/18 06:50 Ns Inj IV.CONT Not Given .Q20H NICOLE Vancomycin HCl 1,250 mg/ 262.5 mls @ 250 mls/hr 01/22/18 21:00 01/22/18 23:25 Sodium Chloride IV.SIG Infused Q12H NICOLE Infusion Insulin Aspart 0 unit 01/21/18 17:00 01/22/18 22:16 Novolog Insulin Correctional Sugar Inj SQ Not Given ACHS NICOLE Protocol Mirtazapine 7.5 mg 01/21/18 21:00 01/22/18 22:17 Remeron PO 7.5 mg HS NICOLE Administration Miscellaneous 1 each 01/22/18 09:00 01/22/18 13:30 Pill Splitter OTHER 1 each DAILY NICOLE Administration Ondansetron HCl 4 mg 01/21/18 13:53 01/23/18 04:24 Zofran Inj IV.PUSH 4 mg Q8H PRN Administration nausea Sertraline HCl 100 mg 01/22/18 09:00 01/22/18 12:08 Zoloft PO 100 mg DAILY NICOLE Administration Sodium Chloride 2 ml 01/21/18 10:09 01/21/18 11:51 Ns Flush IV.FLUSH 2 ml PRN PRN Administration FLUSH AFTER USING IV ACCESS Objective Remarks: GENERAL: Middle-aged man, sitting up in bed, appears to be no acute distress. SKIN: Warm and dry, radiation related changes along the right side of his neck.. HEAD: Normocephalic. EYES: No scleral icterus. No injection or drainage. NECK: Radiation related changes, pathologically enlarged right upper cervical lymph nodes which though significantly decreased in size when compared to pre- treatments levels remains easily palpable, firm and attached to underlying soft tissues. LYMPHATIC: Pathologically enlarged right upper cervical lymph nodes. CARDIOVASCULAR: Regular rate and rhythm without murmurs. RESPIRATORY: Breath sounds equal bilaterally. No accessory muscle use. GASTROINTESTINAL: PEG tube in place, abdomen is thin, abdomen soft, non-tender, nondistended. EXTREMITIES: No cyanosis, or edema. MUSCULOSKELETAL: Decreased muscle mass and tone. NEUROLOGICAL: No obvious focal deficit. Awake, alert, and oriented x3. PSYCHIATRIC: Appropriate mood and affect; insight and judgment normal. 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 Clinical stage at the time of diagnosis was T3 N3 M0, status post induction/neoadjuvant chemotherapy with carboplatin and Taxol and subsequent initiation of definitive dose combined chemoradiotherapy with full dose cisplatin in December 2017. Admitted to the hospital with febrile illness, dehydration and generalized weakness. Recommendations: 1. Oropharyngeal squamous cell carcinoma: Treatment on hold until he recovers from his acute febrile illness. 2. Chemotherapy related myelosuppression: He was treated with 1 dose of Neupogen on 01/22/2018. Repeat CBC will be ordered for today. 3. Febrile illness: All cultures remain negative, sputum culture was positive for gram-positive cocci/Staphylococcus. I suspect this may be contaminants from his oral neyda. He remains on empiric antibiotic therapy with vancomycin and cefepime. If he remains afebrile for an additional 24 hours I would recommend transitioning him to liquid levofloxacin at a dose of 500 mg daily via PEG tube. This ought to be continued for an additional 5 days post discharge. 4. I did coach operator the patient on administering adequate amounts of liquid for hydration purposes via his PEG tube specifically have suggested he use Gatorade or water and at least 1000 cc daily in addition to his tube feeding. Continue ongoing care, the patient is improving, I would anticipate discharge in the upcoming 48 hours.
[2018-01-23 08:15] LABS: Baso % (Auto) 0.2 % (0.0-2.0); Eos # (Auto) 0.1 th/mm3 (0.0-0.4); Eos % (Auto) 1.2 % (0.0-4.0); Hemoglobin 8.6 gm/dL (13.0-17.0); Lymph # (Auto) 0.2 th/mm3 (1.0-4.8); Lymph % (Auto) 3.9 % (9.0-44.0); Mean Corpuscular HGB Conc 34.6 % (32.0-36.0); Mean Corpuscular Hemoglobin 32.9 pg (27.0-34.0); Mean Corpuscular Volume 95.3 fL (80.0-100.0); Mean Platelet Volume 8.9 fL (7.0-11.0); Mono # (Auto) 0.7 th/mm3 (0.0-0.9); Mono % (Auto) 12.4 % (0.0-8.0); Neut # (Auto) 4.6 th/mm3 (1.8-7.7); Neut % (Auto) 82.3 % (16.0-70.0); Platelet Count 98 th/mm3 (150-450); Red Blood Count 2.62 mil/mm3 (4.50-5.90); Red Cell Distribution Width 14.6 % (11.6-17.2); White Blood Count 5.6 th/mm3 (4.0-11.0)
[2018-01-23 09:11] LABS: Dohle Bodies Present; Eosinophils 2 % (0-4); Lymphocytes 2 % (9-44); Monocytes 7 % (0-8); Toxic Granulation 2+
[2018-01-23 09:12] LABS: Platelet Morphology Normal (Normal)
[2018-01-23] MEDS: Insulin NovoLOG Aspart Correctional Sugar Inj SQ SCH ×4 (09:12→23:06)
[2018-01-23] MEDS: Sertraline 100 MG Tablet PO SCH (09:14)
[2018-01-23] MEDS: Enoxaparin Inj 40 MG/0.4 ML Syringe SQ SCH (09:14)
[2018-01-23] MEDS: Vancomycin Inj 1,250 MG in Sodium Chlor 0.9% Inj 250 ML IV.SIG SCH ×2 (09:55→23:05)
--- NOTE | 2018-01-23 11:47 | P.PNIM ---
Subjective Interval history: in no acute distress. no recurrent fever. overall doing better. Physical Exam Vital signs: Vital Signs 01/22/18 12:00 01/22/18 12:06 01/22/18 16:00 Temperature 98.4 F 98.0 F Pulse Rate 102 H 110 H Respiratory Rate 18 18 Blood Pressure 93/71 L 112/65 Pulse Oximetry 100 96 98 01/22/18 20:00 01/23/18 00:00 01/23/18 04:00 Temperature 99.0 F 99.2 F 98.7 F Pulse Rate 113 H 108 H 93 H Respiratory Rate 20 20 18 Blood Pressure 110/64 106/65 113/71 Pulse Oximetry 100 98 95 01/23/18 08:00 Temperature 98.9 F Pulse Rate 89 Respiratory Rate 18 Blood Pressure 102/70 Pulse Oximetry 98 Intake & Output 01/22/18 01/23/18 01/23/18 18:59 06:59 18:59 Intake Total 3360 / 3360 462.5 / 462.5 Output Total 850 / 850 1200 / 1200 Balance 2510 / 2510 -737.5 / -737.5 Weight 71.7 kg Intake: IV 1350 / 1350 462.5 / 462.5 NS Inj 1,000 ML @ 50 mls/hr IV. 1000 / 1000 CONT .Q20H NICOLE Rx#:[id number] Maxipime Inj 2,000 MG In NS Inj 100 / 100 200 / 200 100 ML @ 200 mls/hr IV.SIG Q8H NICOLE Rx#:[id number] Vancomycin Inj 1,000 MG In NS 250 / 250 Inj 250 ML @ 250 mls/hr IV.SIG Q12H NICOLE Rx#:[id number] Vancomycin Inj 1,250 MG In NS 262.5 / 262.5 Inj 250 ML @ 250 mls/hr IV.SIG Q12H NICOLE Rx#:[id number] Oral 0 / 0 0 / 0 Tube Feeding 1000 / 1000 Water Bolus Amount 120 / 120 Other 890 / 890 Output: Urine 850 / 850 1200 / 1200 Other: Other Intake Source Saline Solution Date of Last Bowel Movement 01/11/18 # Bowel Movements 1 0 - Constitutional no acute distress - Routine Respiratory Exam Present: CTA bilaterally - Routine Cardiovascular Exam Present: RRR - Routine Abdominal Exam Present: soft - Routine Extremities Exam Comments: no pedal edema. - Routine Neurological Exam Present: alert, oriented X3 Results - Labs CBC & Chem 7: 01/23/18 06:51 01/21/18 10:00 Laboratory Results - last 24 hr 01/22/18 01/22/18 01/22/18 12:29 17:21 20:09 WBC RBC Hgb Hct MCV MCH MCHC RDW Plt Count MPV Prelim Diff (Auto) Neut % (Auto) Lymph % (Auto) [place] % (Auto) Eos % (Auto) Baso % (Auto) Neut # (Auto) Lymph # (Auto) [place] # (Auto) Eos # (Auto) Baso # (Auto) WBC Differential Seg Neuts % (Manual) Band Neuts % (Manual) Lymphocytes % (Manual) Monocytes % (Manual) Eosinophils % (Manual) Abs Neuts (Manual) Differential Comment Toxic Granulation Dohle Bodies Platelet Estimate Platelet Morphology POC Glucose 184 H 160 H 121 H 01/23/18 01/23/18 06:51 07:41 WBC 5.6 RBC 2.62 L Hgb 8.6 L Hct 25.0 L MCV 95.3 MCH 32.9 MCHC 34.6 RDW 14.6 Plt Count 98 L MPV 8.9 Prelim Diff (Auto) Slide review pending Neut % (Auto) 82.3 H Lymph % (Auto) 3.9 L [place] % (Auto) 12.4 H Eos % (Auto) 1.2 Baso % (Auto) 0.2 Neut # (Auto) 4.6 Lymph # (Auto) 0.2 L [place] # (Auto) 0.7 Eos # (Auto) 0.1 Baso # (Auto) 0.0 WBC Differential Manual diff final Seg Neuts % (Manual) 39 Band Neuts % (Manual) 50 H Lymphocytes % (Manual) 2 L Monocytes % (Manual) 7 Eosinophils % (Manual) 2 Abs Neuts (Manual) 5.0 Differential Comment . Toxic Granulation 2+ H Dohle Bodies Present H Platelet Estimate Low L Platelet Morphology Normal POC Glucose 131 H Microbiology 01/22/18 12:01 Blood - Line Aerobic Blood Culture - Preliminary No growth in 1 day 01/22/18 12:01 Blood - Line Anaerobic Blood Culture - Preliminary No growth in 1 day 01/21/18 10:00 Blood - Peripheral Aerobic Blood Culture - Preliminary No growth in 2 days 01/21/18 10:00 Blood - Peripheral Anaerobic Blood Culture - Preliminary No growth in 2 days 01/21/18 09:50 Blood - Peripheral Aerobic Blood Culture - Preliminary No growth in 2 days 01/21/18 09:50 Blood - Peripheral Anaerobic Blood Culture - Preliminary No growth in 2 days 01/21/18 10:20 Sputum - Expectorated Sputum Gram Stain - Final 01/21/18 10:20 Sputum - Expectorated Sputum Sputum Culture - Preliminary Staphylococcus aureus Assessment and Plan - Plan A/P - sepsis- suspect pneumonia with recent chemo. continue broad spectrum IV antibiotic ( Cefepime and Vanco)- blood cultures negative and sputum culture with staph. aureus. oncology following. -oropharynx cancer- on chemo and radiation ( didn't have his radiation today because of fever) oncology consulted as noted above. -hypertension- with low-normal BP; hold home BP meds for now- will monitor. -diabetes mellitus; started on accu-check with SSI -dysphagia- PEG in place; continue with tube feeding. -leukopenia/ thrombocytopenia- due to chemo-received a dose of Neupogen yesterday- will monitor. -DVT prophylaxis with Subq lovenox. -consult PT. Discharge Planning: possibly tomorrow if with no recurrent fever and cleared by oncology.
--- NOTE | 2018-01-23 15:51 | P.DIET ---
Nutritional Evaluation Type of nutrition evaluation: follow-up Nutrition consult regarding: Tube Feeding Subjective Barriers to Nutrition: Swallowing problem (States from XRT powers) Subjective Comments: Pt seen in his room, no other guests present. He is unable to remember exactly what his TF regimen was supposed to be when he's at home. He has no bottom teeth , but does have dentures (not currently in place). He also stated he sometimes purchased Boost Glucose Control or Glucerna Shakes to put down his tube. Pt is currently giving himself Glucerna 1.5 bolus feedings. Denied constipation or diarrhea. Had c/o nausea last night and he tried to "force himself to vomit" per the pt. He did state he was eating at home, usually 1 good meal consisting of fish and soft side dishes like mashed potatoes, applesauce, pudding, etc. Objective - Diagnosis Sepsis, Pneumonia, Head and Neck Cancer - Objective % IBW: 106 (RWD=765#) Body Weight Used for Calculations: Actual (73.9kg) Energy Needs - Lower Range (kCal/kg): 30 Energy Needs - Upper Range (kCal/kg): 3,035 Lower Limit kCal/kg (kCals): 2,217 Upper Limit kCal/kg (kCals): 2,587 Lower Limit Protein Factor (Grams per Kg): 1.2 Upper Limit Protein Factor (Grams per Kg): 1.5 Lower Protein Needs (Protein): 89 Upper Protein Needs (Protein): 111 Fluid Factor (ml/kg): 30 Estimated Fluid Needs (ml): 2,217 Dietitian Reviewed in Medical Record: Curent medications, Intake & Output, Labs , Medical history, Tube feeding Diet Order: TF Only Objective Comments: Meds: Remeron LBM 01/21 12 XRT left per pt Assessment Assessment: Pt states he uses Vital 1.5 and Jevity 1.5 TFs at home but cannot remember how much he is supposed to bolus. Current diet order is for Glucerna 1.5, 5 cans daily (240mls each). Recommend increasing to 6 cans daily of Glucerna 1.5 to better meet pts increased nutritional requirements. This will provide 2136kcals , 118g PRO, and 1080mls fluid. Recommend flushing PEG w/ 30mls water before and after bolus administration. Discussed w/ outpatient RD that pt usually follows w /. Pt is currently NPO and needs his nutrition from PEG tube feedings. Dietitian will continue to follow. Recommendations: 1. Recommend Glucerna 1.5 bolus feedings: 6 cans daily (240mls each). 2. Recommend 30ml water flushes before and after bolus administration. Dietitian to Monitor: Lab values, Glucose level, Intake & Output, Tube feeding tolerance, Weight change, Medical course
[2018-01-23 21:53] LABS: Glomerular Filtration Rate Greater Than 89 mL/min (>89)
[2018-01-23] MEDS: Mirtazapine 15 MG Tablet PO SCH (23:07)
[2018-01-24] MEDS: Sod Chloride 0.9% Inj 1,000 ML IV.CONT SCH (04:59)
[2018-01-24] MEDS ORDERED: Pharmacy Ordered Lab Info OTHER ONE (08:45)
[2018-01-24] MEDS: Insulin NovoLOG Aspart Correctional Sugar Inj SQ SCH (09:34)
[2018-01-24] MEDS: Enoxaparin Inj 40 MG/0.4 ML Syringe SQ SCH (09:35)
--- NOTE | 2018-01-24 09:40 | P.PNIM ---
Subjective Interval history: f/u; fever in no acute distress. looks and feels much better today. no sob or pain. no recurrent fever. d/w the RN and no acute issues over night. Physical Exam Vital signs: Vital Signs 01/23/18 12:00 01/23/18 16:00 01/23/18 17:34 Temperature 98.2 F 98.1 F Pulse Rate 102 H 115 H Respiratory Rate 20 18 Blood Pressure 108/79 113/70 Pulse Oximetry 100 99 99 01/23/18 20:00 01/24/18 00:00 01/24/18 04:00 Temperature 99 F 97.5 F L 97.9 F Pulse Rate 101 H 89 92 H Respiratory Rate 20 20 18 Blood Pressure 128/69 104/63 109/72 Pulse Oximetry 97 91 L 96 Intake & Output 01/23/18 01/24/18 01/24/18 18:59 06:59 18:59 Intake Total 1362.5 / 1362.5 2372.5 / 2372.5 100 / 100 Output Total 875 / 875 875 / 875 Balance 487.5 / 487.5 1497.5 / 1497.5 100 / 100 Weight 71.7 kg Intake: IV 1362.5 / 1362.5 362.5 / 362.5 100 / 100 NS Inj 1,000 ML @ 50 mls/hr IV. 1000 / 1000 CONT .Q20H NICOLE Rx#:[id number] Maxipime Inj 2,000 MG In NS Inj 100 / 100 100 / 100 100 / 100 100 ML @ 200 mls/hr IV.SIG Q8H NICOLE Rx#:[id number] Vancomycin Inj 1,250 MG In NS 262.5 / 262.5 262.5 / 262.5 Inj 250 ML @ 250 mls/hr IV.SIG Q12H NICOLE Rx#:[id number] Tube Feeding 1000 / 1000 Water Bolus Amount 120 / 120 Other 890 / 890 Output: Urine 875 / 875 875 / 875 Other: Other Intake Source Saline Solution Date of Last Bowel Movement 01/11/18 # Bowel Movements 0 - Constitutional no acute distress - Routine Respiratory Exam Present: CTA bilaterally - Routine Cardiovascular Exam Present: RRR - Routine Abdominal Exam Present: soft - Routine Extremities Exam Comments: no pedal edema. - Routine Neurological Exam Present: alert, oriented X3 Results - Labs CBC & Chem 7: 01/23/18 06:51 01/23/18 21:25 Laboratory Results - last 24 hr 01/23/18 01/23/18 01/23/18 11:43 18:21 21:25 Creatinine 0.69 Estimated GFR Greater than 89 POC Glucose 123 H 167 H Vancomycin Trough 01/23/18 01/24/18 01/24/18 21:50 07:33 08:47 Creatinine Estimated GFR POC Glucose 200 H 131 H Vancomycin Trough 17.0 H Microbiology 01/21/18 10:20 Sputum - Expectorated Sputum Gram Stain - Final 01/21/18 10:20 Sputum - Expectorated Sputum Sputum Culture - Final Staphylococcus aureus 01/22/18 12:01 Blood - Line Aerobic Blood Culture - Preliminary No growth in 1 day 01/22/18 12:01 Blood - Line Anaerobic Blood Culture - Preliminary No growth in 1 day 01/21/18 10:00 Blood - Peripheral Aerobic Blood Culture - Preliminary No growth in 2 days 01/21/18 10:00 Blood - Peripheral Anaerobic Blood Culture - Preliminary No growth in 2 days 01/21/18 09:50 Blood - Peripheral Aerobic Blood Culture - Preliminary No growth in 2 days 01/21/18 09:50 Blood - Peripheral Anaerobic Blood Culture - Preliminary No growth in 2 days Assessment and Plan - Plan A/P - sepsis- suspect pneumonia with recent chemo. will switch to levaquin for five more days per oncology. blood cultures negative and sputum culture with staph. aureus. oncology following. -oropharynx cancer- on chemo and radiation ( didn't have his radiation today because of fever) oncology consulted as noted above. -hypertension- with low-normal BP; hold home BP meds for now- will monitor. -diabetes mellitus; started on accu-check with SSI -dysphagia- PEG in place; continue with tube feeding. -leukopenia/ thrombocytopenia- due to chemo-received a dose of Neupogen yesterday- will monitor. -DVT prophylaxis with Subq lovenox. -consult PT. Discharge Planning: dc home today. see med list. f/u; pcp, oncology and radiation oncology. [facility] was offered but the patient declined. d/w the patient, RN and .
[2018-01-24] MEDS: Vancomycin Inj 1,250 MG in Sodium Chlor 0.9% Inj 250 ML IV.SIG SCH (09:43)
[2018-01-24] MEDS: Sertraline 100 MG Tablet PO SCH (09:52)
--- NOTE | 2018-02-06 12:20 | P.DS ---
Date of admission: 01/21/18 14:00 Primary care physician: SANDI Pitt Brief History from admission: patient is a 62 y/o male with history of oropharynx cancer, hypertension and diabetes presented to ER with fever and chills. he's being followed up by . he says that his last chemo was two weeks ago. he was supposed to have his radiation therapy today but he says that he started to have chills for which he came to ER. he says that he's being having productive cough of reddish sputum for a couple of days. he denies any abdominal pain, diarrhea although had some nausea.he had a fever of 100.9 at the time of presentation to ER. DS: Summary Hospital Course: - sepsis- suspect pneumonia with recent chemo. will switch to levaquin for five more days per oncology. blood cultures negative and sputum culture with staph. aureus. oncology following. -oropharynx cancer- on chemo and radiation ( didn't have his radiation today because of fever) oncology consulted as noted above. -hypertension- with low-normal BP; hold home BP meds for now- will monitor. -diabetes mellitus; started on accu-check with SSI -dysphagia- PEG in place; continue with tube feeding. -leukopenia/ thrombocytopenia- due to chemo-received a dose of Neupogen yesterday- will monitor. -DVT prophylaxis with Subq lovenox. - Time Spent with Patient Total time spent providing and/or coordinating discharge services: Less than 30 minutes - Quality: VTE Deep Vein Thrombosis/Pulmonary Embolism Present on Admission: No Results Procedures completed during hospitalization: none. - Impressions ITS Impressions Chest X-Ray 01/21/18 10:09 CONCLUSION: 1. No acute cardiopulmonary disease. Discharge Plan - Discharge Disposition Patient Disposition: Discharge Home - Discharge Condition Condition: Stable - Discharge Order Discharge Orders: Discharge Order (Routine); Ordered 01/24/18 Ordered By: Fabiaan Bennett - Physicians Team Primary Care Provider: Leia Anderson Attending Provider: Fabiana Bennett Other Providers: David Ramirez MD
== END 2018-01-24 11:48 | disposition home or self-care (01) ==
LOC: NEPC 09:33 → NEDA 14:00 → NEDH 17:47 → N04 18:48
PROVIDERS: ADMIT Internal Medicine; ATTEND Internal Medicine

== ENCOUNTER 2018-03-29 14:46 | Inpatient (IN) ==
[2018-03-29] MEDS: Sod Chloride 0.9% Inj 1,000 ML IV.SIG SCH ×3 (15:08→15:53)
--- NOTE | 2018-03-29 15:37 | XR ---
EXAM DATE: 03/29/2018 3:25 PM EDT AGE/SEX: 62 years / Male INDICATIONS: Fever. CLINICAL DATA: This is the patient's initial encounter. Patient reports that signs and symptoms have been present for 1 day and indicates a pain score of 3/10. MEDICAL/SURGICAL HISTORY: . CA throat and neck. Hypercholesterolemia. Arthritis. Tinnitus. Hyp erlipidemia. HTN. Dyspnea. Diabetes. Necrotizing fasciitis. Depression. Anxiety. Substance use. . F eeding tube. Port for Chemo. Carpel tunnel release. Right leg fracture repair. Blood transfusions. COMPARISON: C, CHEST 1V SINGLE AP, 03/23/2018. . FINDINGS: Right-sided portacatheter is noted and the tip overlies the SVC. The lungs are clear. Heart size norm al. Osseous structures are intact. CONCLUSION: Clear lungs. Electronically signed by: Miguel Welsh MD 03/29/2018 3:36 PM EDT
[2018-03-29 15:42] LABS: Baso % (Auto) 0.5 % (0.0-2.0); Eos # (Auto) 0.1 th/mm3 (0.0-0.4); Eos % (Auto) 1.5 % (0.0-4.0); Hemoglobin 12.6 gm/dL (13.0-17.0); Lymph # (Auto) 1.2 th/mm3 (1.0-4.8); Lymph % (Auto) 12.3 % (9.0-44.0); Mean Corpuscular HGB Conc 34.1 % (32.0-36.0); Mean Corpuscular Hemoglobin 37.1 pg (27.0-34.0); Mean Platelet Volume 7.6 fL (7.0-11.0); Mono # (Auto) 1.6 th/mm3 (0.0-0.9); Mono % (Auto) 16.7 % (0.0-8.0); Neut # (Auto) 6.6 th/mm3 (1.8-7.7); Platelet Count 259 th/mm3 (150-450); Red Blood Count 3.39 mil/mm3 (4.50-5.90); Red Cell Distribution Width 16.9 % (11.6-17.2); White Blood Count 9.5 th/mm3 (4.0-11.0)
[2018-03-29] MEDS ORDERED: Tetanus/Diphtheria Toxoid Adult Vaccine Inj 0.5 ML Vial IM ONE (15:57)
[2018-03-29] MEDS ORDERED: Morphine Inj 4 MG/ML Vial IV.PUSH ONE (15:57)
[2018-03-29 16:06] LABS: Platelet Estimate Normal (Normal); Platelet Morphology Normal (Normal)
--- NOTE | 2018-03-29 16:09 | ED ---
HPI General Chief complaint: Seizure Stated complaint: Poss Seizure Time Seen by Provider: 03/29/18 15:00 Source: patient, family and old records reviewed Mode of arrival: ambulatory Limitations: no limitations History of Present Illness MD complaint: Frequent falls. Recent injury to the head. Seizure just prior to arrival. No history of seizures. Onset (ago): day(s) (About 10) Severity: moderate Associated symptoms: Reports cough (Cough is improving), loss of appetite, malaise, seizure, shortness of breath and weakness; Denies fever/chills and nausea/vomiting Treatments prior to arrival: Reports none Related Data Home Medications Medication Instructions Recorded Confirmed metformin 1,000 mg PO BID 01/21/18 03/29/18 amlodipine 10 mg PO DAILY 03/29/18 03/29/18 Previous Rx's Medication Instructions Recorded promethazine-codeine 10 ml PO Q4-6H PRN #118 ml 03/23/18 Allergies Allergy/AdvReac Type Severity Reaction Status Date / Time No Known Allergies Allergy Verified 03/29/18 14:49 Review of Systems ROS: all other systems reviewed are negative [facility] Medical History Medical History Depression (Acute) Diabetes (Acute) History of radiation therapy (Acute) Hypertension (Acute) 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) Surgical History Surgical History H/O skin graft (Acute) History of vascular access device (Acute) PEG (percutaneous endoscopic gastrostomy) status (Acute) Status post chemotherapy (Acute) Social History Social History Substance History: Active Abuse Second Hand Smoke Exposure: No Smoking Status: Never smoker How Often Do You Have a Drink Containing Alcohol: 2 to 3 times a week Recent Travel in [facility] within the Last 8 Weeks: No Recent Out of Country Travel within the Last 8 Weeks: No Substance Abuse Detail Marijuana: Substance Use Status: Active Immunization History Tetanus Immunization: >5 Years Exam Const General: cooperative and well developed Orientation: alert, awake and oriented x3 HENMT Head: normocephalic, laceration (Several day old appearing vertical laceration on the right side of the forehead) and raccoon eyes (Bruising around the right eye) Mouth: moist mucous membranes abnormal (Mucous membranes are dry) Eyes Alignment and Position: alignment normal and position abnormal Conjunctivae: conjunctivae normal Sclera: scleral abnormality left hemorrhage (Lateral) Pupils: PERRL EOM: EOM intact bilaterally Neck Neck: normal visual inspection and full ROM Chest Chest: normal inspection of the chest Resp Effort & Inspection: normal respiratory effort and labored Auscultation: clear to auscultation bilaterally Cardio Rate: tachycardic Rhythm: regular rhythm GI Inspection: normal to inspection and other Palpation: soft Back/Spine/Pelvis Cervical Spine: cervical ROM normal Thoracic/Lumbar Spine: thoraco-lumbar ROM normal Skin General: no rashes or lesions noted, turgor normal and dry skin Neuro General: alert, awake, oriented x3, moves all extremities and CN's II-XI intact bilaterally Extrem General: normal to inspection and full ROM Psych Appearance: grossly normal Mental Status: mental status grossly normal Speech and Movement: speech and movement normal Mood: congruent mood Affect: normal affect Attitude: cooperative Thought Process: normal Thought Content: normal Judgment: judgment good Course Consultations Consultation #1: Dr. Hummel is admitting Initial Documented Vital Signs Temperature 99.0 F 03/29/18 14:53 Pulse Rate 133 H 03/29/18 14:53 Respiratory Rate 28 H 03/29/18 14:53 Blood Pressure 155/94 H 03/29/18 14:53 Pulse Oximetry 98 03/29/18 14:53 Last Documented Vital Signs Temperature 97.4 F L 03/29/18 18:18 Pulse Rate 107 H 03/29/18 18:18 Respiratory Rate 18 03/29/18 18:18 Blood Pressure 134/77 03/29/18 18:18 Pulse Oximetry 100 03/29/18 18:18 Critical Care Time Critical Care Time: Yes Total Critical Care Time: 45 Attestation: Time to perform other separately billable procedures was not included in the critical care time. My time did not include minutes spent treating any other patients simultaneously or on activities that did not directly contribute to the patient's treatment. The services I provided to this patient were to treat and/or prevent clinically significant deterioration due to tachycardia, rule out sepsis I provided critical care services requiring my management, as noted below: Chart data review, documentation time, medication orders and management, vital sign assessments/reviewing monitor data, ordering and reviewing lab tests, ordering and interpreting/reviewing x-rays and diagnostic studies, care of the patient and discussion of the patient with the admitting physicians Medical Decision Making MDM Narrative Medical decision making narrative: This patient presents back today for frequent falls. He is a cancer patient who gets his nutrition via a PEG tube. He does not tolerate oral intake. He is tachycardic. He suffered a head injury as the result of 1 of his falls. He refused to come to the hospital at that time. He does not know the date of his last tetanus shot. In addition to the frequent falls, he has now had a seizure. No history of seizures. Medical Screen Exam Complete: Yes Emergency Medical Condition: Yes Differential Diagnosis Differential Diagnosis: Differential diagnosis includes but is not limited to head injury, sepsis, pneumonia, dehydration Medical Records Medical records reviewed: Yes I reviewed the patient's medical records. Medical history is significant for squamous cell carcinoma of the head and neck. He has a PEG tube because of that. He also has a history of hypertension and diabetes. He was seen here on 03/23 for cough and tachycardia. He was treated with several liters of fluid with improvement in his symptoms. He declined admission. Cultures from 03/23 are negative. The patient states that he is willing to stay in the hospital today. Regarding his lactic acidosis, 3 L of fluid have been ordered. I have empirically given him Zosyn and vancomycin. However, he is not febrile and has a normal white blood count. The lactic acidosis may be from simple dehydration. But, the BUN and creatinine are not elevated. Lab Data Lab results reviewed: Yes I reviewed the patient's lab results. Result diagrams: 03/29/18 15:26 03/29/18 15:26 Lab Results 03/29/18 03/29/18 03/29/18 Range/Units 14:49 15:26 15:26 WBC 9.5 (4.0-11.0) th/mm3 RBC 3.39 L (4.50-5.90) mil/mm3 Hgb 12.6 L (13.0-17.0) gm/dL Hct 37.0 L (39.0-51.0) % MCV 109.0 H (80.0-100.0) fL MCH 37.1 H (27.0-34.0) pg MCHC 34.1 (32.0-36.0) % RDW 16.9 (11.6-17.2) % Plt Count 259 D (150-450) th/mm3 MPV 7.6 (7.0-11.0) fL Prelim Diff (Auto) Slide review pending Neut % (Auto) 69.0 (16.0-70.0) % Lymph % (Auto) 12.3 (9.0-44.0) % [place] % (Auto) 16.7 H (0.0-8.0) % Eos % (Auto) 1.5 (0.0-4.0) % Baso % (Auto) 0.5 (0.0-2.0) % Neut # (Auto) 6.6 (1.8-7.7) th/mm3 Lymph # (Auto) 1.2 (1.0-4.8) th/mm3 [place] # (Auto) 1.6 H (0.0-0.9) th/mm3 Eos # (Auto) 0.1 (0.0-0.4) th/mm3 Baso # (Auto) 0.0 (0.0-0.2) th/mm3 WBC Differential . Diff Scan Auto diff confirmed Differential Comment . Platelet Estimate Normal (Normal) Platelet Morphology Normal (Normal) Puncture Site Patient Temperature O2 Saturation (90-100) % ABG pH (7.380-7.420) ABG pCO2 (38-42) mmHg ABG pO2 (61-120) mmHg ABG HCO3 (22-26) mmol/L ABG O2 Content (12.0-20.0) Vol % ABG Base Excess (-2-2) mmol/L ABG Methemoglobin (0-2) % Kevin Test Hemoglobin (12.0-16.0) G/DL Carboxyhemoglobin (0-4) % O2 Delivery Device Inspired O2 % Critical Value Sodium 136 (136-145) meq/L Potassium 5.6 H (3.5-5.1) meq/L Chloride 100 (98-107) meq/L Carbon Dioxide 20.6 L (21.0-32.0) meq/L Anion Gap 15 (5-15) meq/L BUN 8 (7-18) mg/dL Creatinine 0.98 (0.60-1.30) mg/dL Estimated GFR 77 L (>89) mL/min POC Glucose 212 H (68-110) mg/dl Random Glucose 182 H (74-106) mg/dL Lactic Acid (0.4-2.0) mmol/L Calcium 9.0 (8.5-10.1) mg/dL Magnesium 1.6 (1.5-2.5) mg/dL Total Bilirubin 0.5 (0.2-1.0) mg/dL AST 69 H (15-37) U/L ALT 20 (12-78) U/L Alkaline Phosphatase 83 (45-117) U/L Total Protein 8.0 D (6.4-8.2) g/dL Albumin 3.5 (3.4-5.0) g/dL Urine Color (Yellw/Straw) Urine Clarity (Clear) Urine pH (5.0-8.5) Ur Specific [place] (1.002-1.035) Urine Protein (Neg-Trace) mg/dL Urine Glucose (UA) (Negative) mg/dL Urine Ketones (Negative) mg/dL Urine Occult Blood (Negative) Urine Nitrate (Negative) Urine Bilirubin (Negative) Urine Urobilinogen (Less than 2) mg/dL Ur Leukocyte Esterase (Negative) Urine WBC (0-5) /hpf Hyaline Casts (0-3) /lpf Urine Mucus (Occasional) /lpf Micro UA Comment Ur Microscopic Review Urine Culture Comments 03/29/18 03/29/18 03/29/18 Range/Units 15:26 16:33 17:39 WBC (4.0-11.0) th/mm3 RBC (4.50-5.90) mil/mm3 Hgb (13.0-17.0) gm/dL Hct (39.0-51.0) % MCV (80.0-100.0) fL MCH (27.0-34.0) pg MCHC (32.0-36.0) % RDW (11.6-17.2) % Plt Count (150-450) th/mm3 MPV (7.0-11.0) fL Prelim Diff (Auto) Neut % (Auto) (16.0-70.0) % Lymph % (Auto) (9.0-44.0) % [place] % (Auto) (0.0-8.0) % Eos % (Auto) (0.0-4.0) % Baso % (Auto) (0.0-2.0) % Neut # (Auto) (1.8-7.7) th/mm3 Lymph # (Auto) (1.0-4.8) th/mm3 [place] # (Auto) (0.0-0.9) th/mm3 Eos # (Auto) (0.0-0.4) th/mm3 Baso # (Auto) (0.0-0.2) th/mm3 WBC Differential Diff Scan Differential Comment Platelet Estimate (Normal) Platelet Morphology (Normal) Puncture Site Right radial Patient Temperature 98.6 O2 Saturation 94 (90-100) % ABG pH 7.43 H (7.380-7.420) ABG pCO2 35 L (38-42) mmHg ABG pO2 85 (61-120) mmHg ABG HCO3 23 (22-26) mmol/L ABG O2 Content 14.2 (12.0-20.0) Vol % ABG Base Excess -0.8 (-2-2) mmol/L ABG Methemoglobin 0.3 (0-2) % Kevin Test Y Hemoglobin 10.7 L (12.0-16.0) G/DL Carboxyhemoglobin 1.9 (0-4) % O2 Delivery Device Room air Inspired O2 21 % Critical Value No Sodium (136-145) meq/L Potassium (3.5-5.1) meq/L Chloride (98-107) meq/L Carbon Dioxide (21.0-32.0) meq/L Anion Gap (5-15) meq/L BUN (7-18) mg/dL Creatinine (0.60-1.30) mg/dL Estimated GFR (>89) mL/min POC Glucose (68-110) mg/dl Random Glucose (74-106) mg/dL Lactic Acid 5.7 H* (0.4-2.0) mmol/L Calcium (8.5-10.1) mg/dL Magnesium (1.5-2.5) mg/dL Total Bilirubin (0.2-1.0) mg/dL AST (15-37) U/L ALT (12-78) U/L Alkaline Phosphatase (45-117) U/L Total Protein (6.4-8.2) g/dL Albumin (3.4-5.0) g/dL Urine Color Straw (Yellw/Straw) Urine Clarity Clear (Clear) Urine pH 6.0 (5.0-8.5) Ur Specific [place] 1.006 (1.002-1.035) Urine Protein Negative (Neg-Trace) mg/dL Urine Glucose (UA) 50 (Negative) mg/dL Urine Ketones Negative (Negative) mg/dL Urine Occult Blood Negative (Negative) Urine Nitrate Negative (Negative) Urine Bilirubin Negative (Negative) Urine Urobilinogen Less than 2 (Less than 2) mg/dL Ur Leukocyte Esterase Negative (Negative) Urine WBC 2 (0-5) /hpf Hyaline Casts 1 (0-3) /lpf Urine Mucus Few H (Occasional) /lpf Micro UA Comment Culture not ind Ur Microscopic Review Not Reportable Urine Culture Comments Culture not ind 03/29/18 Range/Units 17:45 WBC (4.0-11.0) th/mm3 RBC (4.50-5.90) mil/mm3 Hgb (13.0-17.0) gm/dL Hct (39.0-51.0) % MCV (80.0-100.0) fL MCH (27.0-34.0) pg MCHC (32.0-36.0) % RDW (11.6-17.2) % Plt Count (150-450) th/mm3 MPV (7.0-11.0) fL Prelim Diff (Auto) Neut % (Auto) (16.0-70.0) % Lymph % (Auto) (9.0-44.0) % [place] % (Auto) (0.0-8.0) % Eos % (Auto) (0.0-4.0) % Baso % (Auto) (0.0-2.0) % Neut # (Auto) (1.8-7.7) th/mm3 Lymph # (Auto) (1.0-4.8) th/mm3 [place] # (Auto) (0.0-0.9) th/mm3 Eos # (Auto) (0.0-0.4) th/mm3 Baso # (Auto) (0.0-0.2) th/mm3 WBC Differential Diff Scan Differential Comment Platelet Estimate (Normal) Platelet Morphology (Normal) Puncture Site Patient Temperature O2 Saturation (90-100) % ABG pH (7.380-7.420) ABG pCO2 (38-42) mmHg ABG pO2 (61-120) mmHg ABG HCO3 (22-26) mmol/L ABG O2 Content (12.0-20.0) Vol % ABG Base Excess (-2-2) mmol/L ABG Methemoglobin (0-2) % Kevin Test Hemoglobin (12.0-16.0) G/DL Carboxyhemoglobin (0-4) % O2 Delivery Device Inspired O2 % Critical Value Sodium (136-145) meq/L Potassium (3.5-5.1) meq/L Chloride (98-107) meq/L Carbon Dioxide (21.0-32.0) meq/L Anion Gap (5-15) meq/L BUN (7-18) mg/dL Creatinine (0.60-1.30) mg/dL Estimated GFR (>89) mL/min POC Glucose 176 H (68-110) mg/dl Random Glucose (74-106) mg/dL Lactic Acid (0.4-2.0) mmol/L Calcium (8.5-10.1) mg/dL Magnesium (1.5-2.5) mg/dL Total Bilirubin (0.2-1.0) mg/dL AST (15-37) U/L ALT (12-78) U/L Alkaline Phosphatase (45-117) U/L Total Protein (6.4-8.2) g/dL Albumin (3.4-5.0) g/dL Urine Color (Yellw/Straw) Urine Clarity (Clear) Urine pH (5.0-8.5) Ur Specific [place] (1.002-1.035) Urine Protein (Neg-Trace) mg/dL Urine Glucose (UA) (Negative) mg/dL Urine Ketones (Negative) mg/dL Urine Occult Blood (Negative) Urine Nitrate (Negative) Urine Bilirubin (Negative) Urine Urobilinogen (Less than 2) mg/dL Ur Leukocyte Esterase (Negative) Urine WBC (0-5) /hpf Hyaline Casts (0-3) /lpf Urine Mucus (Occasional) /lpf Micro UA Comment Ur Microscopic Review Urine Culture Comments Imaging Data Attestation: I personally reviewed and interpreted this imaging study as follows : Radiologist's impression: Chest X-Ray 03/29/18 15:04 CONCLUSION: Clear lungs. Head CT 03/29/18 15:57 CONCLUSION: 1. No acute hemorrhage or mass effect. 2. 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 . ECG Data EKG Prior to Arrival: No Attestation: I personally reviewed and interpreted this ECG as follows: (EKG shows sinus tachycardia with a rate of 136. No acute ischemic changes.) Discharge Plan Discharge Disposition Patient Disposition: 30 Still Patient Discharge Details Diagnosis: Tachycardia, Cancer of head and neck, Acute hyperkalemia, Acidosis, lactic Physicians Team ED Provider: Gertrude Devine Primary Care Provider: UNKNOWN, Attending Provider: Hilda Hummel Other Providers: Ketan Arias Status ED Status: Admitted Observation Patient
[2018-03-29 16:14] LABS: Alkaline Phosphatase 83 U/L (45-117)
[2018-03-29 16:26] LABS: Alanine Aminotransferase 20 U/L (12-78); Albumin 3.5 g/dL (3.4-5.0); Anion Gap 15 meq/L (5-15); Blood Urea Nitrogen 8 mg/dL (7-18); Carbon Dioxide 20.6 meq/L (21.0-32.0); Chloride 100 meq/L (98-107); Glomerular Filtration Rate 77 mL/min (>89); Glucose,Random 182 mg/dL (74-106); Magnesium 1.6 mg/dL (1.5-2.5); Sodium 136 meq/L (136-145)
[2018-03-29 16:27] LABS: Aspartate Aminotransferase 69 U/L (15-37); Potassium 5.6 meq/L (3.5-5.1)
[2018-03-29] MEDS ORDERED: Piperacil/Tazo 4.5 GM Premix 4.5 GM/100 ML BAG IV.SIG STA (16:33)
[2018-03-29] MEDS ORDERED: Vancomycin Inj 1,000 MG in Sodium Chlor 0.9% Inj 250 ML IV.SIG STA (16:33)
[2018-03-29] MEDS ORDERED: Dextrose 50% in Water 50 ML Vial IV.PUSH PRN (16:53)
[2018-03-29] MEDS ORDERED: Bisacodyl 10 MG Supp RECTAL PRN (16:53)
[2018-03-29 17:12] LABS: Bilirubin,Urine Negative (Negative); Clarity,Urine Clear (Clear); Color,Urine Straw (Yellw/Straw); Glucose,Urine (UA) 50 mg/dL (Negative); Hyaline Casts,Urine 1 /lpf (0-3); Leukocyte Esterase,Urine Negative (Negative); Mucus,Urine Few /lpf (Occasional); Nitrite,Urine Negative (Negative); Specific Gravity,Urine 1.006 (1.002-1.035)
--- NOTE | 2018-03-29 17:28 | CT ---
EXAM DATE: 03/29/2018 5:23 PM EDT AGE/SEX: 62 years / Male INDICATIONS: Trauma, fell and hit forehead CLINICAL DATA: This is the patient's initial encounter. Patient reports that signs and symptoms have been present for 1 day and indicates a pain score of 5/10. MEDICAL/SURGICAL HISTORY: Diabetes. Hypertension. Head and neck cancer None. RADIATION DOSE: 40.51 CTDI (mGy) COMPARISON: No prior exams available for comparison. TECHNIQUE: CT of the head without contrast. Using automated exposure control and adjustment of the mA and/or kV according to patient size, radiation dose was kept as low as reasonably achievable to ob tain optimal diagnostic quality images. DICOM format image data is available electronically for revi ew and comparison. FINDINGS: Cerebrum: The ventricles are normal for age with mild to moderate atrophic change. Chronic low densi ty subdural hygromas are noted over both frontal lobes. No evidence of midline shift, mass lesion, he morrhage or acute infarction. No extraaxial fluid collections are seen. Posterior Fossa: The cerebellum and brainstem are intact. The 4th ventricle is midline. The cerebe llopontine angle is unremarkable. Extracranial: The visualized portion of the orbits is intact. Skull: The calvaria is intact. No evidence of skull fracture. CONCLUSION: 1. No acute hemorrhage or mass effect. 2. 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 . Electronically signed by: Marquez Lee MD 03/29/2018 5:26 PM EDT
--- NOTE | 2018-03-29 17:29 | P.HP ---
History of Present Illness Service: Hospitalist Primary Care Physician: UNKNOWN Chief Complaint: Seizure History of Present Illness: Patient is a 62-year-old male who presents to the emergency room with a history of frequent falls, head injury and seizure just prior to arrival. 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 Ramirez), hypertension, diabetes and depression. 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 Apparently he has had several falls after which he refused to come to the hospital. After his most recent one he experienced a seizure which caused him to decide to come in. He has no history of seizures. At admit this visit he is noted to have lactic acidosis, per Dr. Devine ED physician he was seen in the emergency room on 03/23/18 for similar. At that time he was rehydrated after which symptoms resolved and he returned home. Prior to that he was discharged from the hospital on 02/06/18 after being admitted for sepsis/pneumonia. Patient is seen in room. No family is at bedside. He appears to be a somewhat unreliable historian; he is oriented to self time and location but recall of recent events is sometimes unclear. He tells me that he has had 3 falls in the last month. Yesterday he fell while trying to go to the bathroom. He did experience incontinence of urine after that episode. This morning he fell in his living room and when he came to he noticed that his hands were shaking and he could not make them stop. Experienced some dizziness prior to all falls. No changes in vision. No headache. No nausea or vomiting. No unwitnessed falls or seizures. 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 - Surgical History Surgical History: Surgical History (Last Reviewed 03/29/18 @ 17:21 by SANDI Taveras) H/O skin graft History of vascular access device PEG (percutaneous endoscopic gastrostomy) status Status post chemotherapy - Family History Family History: Family History (Last Reviewed 03/29/18 @ 17:21 by SANDI Taveras) Mother Family history of cancer - Social History I have reviewed the patient's Social History: Yes - Tobacco History Second Hand Smoke Exposure: No Smoking Status: Never smoker - Alcohol History How Often Do You Have a Drink Containing Alcohol: 2 to 3 times a week - Substance Use History Substance History: Active Abuse - Substance Use Type Marijuana Status: Active - Travel History Recent Travel in the [place] Within the Last 8 Weeks: No Recent Travel Out of the Country Within the Last 8 Weeks: No - Immunization History Tetanus Immunization: >5 Years Medications and Allergies Active Medications: Active Medications Al Hydroxide/Mg Hydroxide (Milk Of Magnesia Liq) 30 ml PO Q12H PRN PRN Reason: Mild Constipation Bisacodyl (Dulcolax Supp) 10 mg RECTAL DAILY PRN PRN Reason: SEVERE CONSITIPATION Dextrose (D50w Vial) 50 ml IV.PUSH UNSCH PRN PRN Reason: PER HYPOGLYCEMIA PROTOCOL Glucagon (Glucagon Inj) 1 mg OTHER PRN PRN PRN Reason: for Hypoglycemia Protocol Sodium Chloride (Ns Inj) 1,000 mls @ 0 mls/hr IV.SIG BOLUS NICOLE Stop: 03/31/18 15:16 Last Infusion: 03/29/18 16:38 Dose: Infused Vancomycin HCl 1,000 mg/ (Sodium Chloride) 250 mls @ 250 mls/hr IV.SIG STAT STA Stop: 03/29/18 17:32 Insulin Aspart (Novolog Insulin Correctional Sugar Inj) 0 unit SQ ACHS NICOLE; Protocol Lactulose (Lactulose Liq) 30 ml PO DAILY PRN PRN Reason: SEVERE CONSITIPATION Sennosides (Senokot) 17.2 mg PO Q12H PRN PRN Reason: Moderate Constipation Allergies Allergy/AdvReac Type Severity Reaction Status Date / Time No Known Allergies Allergy Verified 03/29/18 14:49 Home Medications Medication Instructions Recorded Confirmed Type metformin 1,000 mg PO BID 01/21/18 03/29/18 History amlodipine 10 mg PO DAILY 03/29/18 03/29/18 History Exam Vital signs: Vital Signs 03/29/18 14:53 03/29/18 15:09 Temperature 99.0 F Pulse Rate 133 H Respiratory Rate 28 H Blood Pressure 155/94 H Pulse Oximetry 98 98 Intake & Output 03/28/18 03/29/18 03/29/18 18:59 06:59 18:59 Intake Total 3000 / 3000 Balance 3000 / 3000 Weight 80.739 kg Intake: IV 3000 / 3000 NS Inj 1,000 ML @ Wide Open IV. 3000 / 3000 SIG BOLUS NICOLE Rx#:[id number] Narrative: GENERAL: Well-nourished, well-developed adult male in no obvious distress. SKIN: Warm and dry. EYES: PERRLA HEAD: Normocephalic. Bruising around both eyes. Multiple small lacerations/ abrasions with one larger laceration to right middle forehead -healing. CARDIOVASCULAR: Regular rate and rhythm. RESPIRATORY: No accessory muscle use. Clear to auscultation. Breath sounds equal bilaterally. GASTROINTESTINAL: Abdomen soft, non-tender, non-distended. Positive bowel sounds. PEG. MUSCULOSKELETAL: Extremities without clubbing, cyanosis, or edema. No obvious deformities. NEUROLOGICAL: Awake and alert. No obvious cranial nerve deficits. No facial droop. Motor grossly within normal limits. Slightly reduced manager landscape strength in right hand, however rt hand is noted to have had prior surgery and skin grafting. normal speech. Results - Labs CBC & Chem 7: 03/29/18 15:26 03/29/18 15:26 Labs: Laboratory Results - last 24 hr 03/29/18 03/29/18 03/29/18 14:49 15:26 15:26 WBC 9.5 RBC 3.39 L Hgb 12.6 L Hct 37.0 L MCV 109.0 H MCH 37.1 H MCHC 34.1 RDW 16.9 Plt Count 259 D MPV 7.6 Prelim Diff (Auto) Slide review pending Neut % (Auto) 69.0 Lymph % (Auto) 12.3 Hitchcock % (Auto) 16.7 H Eos % (Auto) 1.5 Baso % (Auto) 0.5 Neut # (Auto) 6.6 Lymph # (Auto) 1.2 Hitchcock # (Auto) 1.6 H Eos # (Auto) 0.1 Baso # (Auto) 0.0 WBC Differential . Diff Scan Auto diff confirmed Differential Comment . Platelet Estimate Normal Platelet Morphology Normal Sodium 136 Potassium 5.6 H Chloride 100 Carbon Dioxide 20.6 L Anion Gap 15 BUN 8 Creatinine 0.98 Estimated GFR 77 L POC Glucose 212 H Random Glucose 182 H Lactic Acid Calcium 9.0 Magnesium 1.6 Total Bilirubin 0.5 AST 69 H ALT 20 Alkaline Phosphatase 83 Total Protein 8.0 D Albumin 3.5 Urine Color Urine Clarity Urine pH Ur Specific [place] Urine Protein Urine Glucose (UA) Urine Ketones Urine Occult Blood Urine Nitrate Urine Bilirubin Urine Urobilinogen Ur Leukocyte Esterase Urine WBC Hyaline Casts Urine Mucus Micro UA Comment Ur Microscopic Review Urine Culture Comments 03/29/18 03/29/18 15:26 16:33 WBC RBC Hgb Hct MCV MCH MCHC RDW Plt Count MPV Prelim Diff (Auto) Neut % (Auto) Lymph % (Auto) Hitchcock % (Auto) Eos % (Auto) Baso % (Auto) Neut # (Auto) Lymph # (Auto) Hitchcock # (Auto) Eos # (Auto) Baso # (Auto) WBC Differential Diff Scan Differential Comment Platelet Estimate Platelet Morphology Sodium Potassium Chloride Carbon Dioxide Anion Gap BUN Creatinine Estimated GFR POC Glucose Random Glucose Lactic Acid 5.7 H* Calcium Magnesium Total Bilirubin AST ALT Alkaline Phosphatase Total Protein Albumin Urine Color Straw Urine Clarity Clear Urine pH 6.0 Ur Specific [place] 1.006 Urine Protein Negative Urine Glucose (UA) 50 Urine Ketones Negative Urine Occult Blood Negative Urine Nitrate Negative Urine Bilirubin Negative Urine Urobilinogen Less than 2 Ur Leukocyte Esterase Negative Urine WBC 2 Hyaline Casts 1 Urine Mucus Few H Micro UA Comment Culture not ind Ur Microscopic Review Not Reportable Urine Culture Comments Culture not ind - Imaging Impressions Chest X-Ray 03/29/18 15:04 CONCLUSION: Clear lungs. Caprini VTE Risk Assessment Caprini VTE Risk Assessment: No/Low Risk (score <= 1) Caprini Risk Assessment Model: Point Value = 1 Point Value = 2 Point Value = 3 Point Value = 5 Age 41-60 Minor surgery BMI > 25 kg/m2 Swollen legs Varicose veins or History of unexplained or recurrent spontaneous Oral contraceptives or hormone replacement Sepsis (< 1 month) Serious lung disease, including pneumonia (< 1 month) Abnormal pulmonary function Acute myocardial infarction Congestive heart failure (< 1 month) History of inflammatory bowel disease Medical patient at bed rest Age 61-74 Arthroscopic surgery Major open surgery (> 45 min) Laparoscopic surgery (> 45 min) Malignancy Confined to bed (> 72 hours) Immobilizing plaster cast Central venous access Age >= 75 History of VTE Family history of VTE Factor V Leiden Prothrombin [id number] Lupus anticoagulant Anticardiolipin antibodies Elevated serum homocysteine Heparin-induced thrombocytopenia Other congenital or acquired thrombophilia Stroke (< 1 month) Elective arthroplasty Hip, pelvis, or leg fracture Acute spinal cord injury (< 1 month) Prophylaxis Regimen: Total Risk Factor Score Risk Level Prophylaxis Regimen 0-1 Low Early ambulation 2 Moderate Order ONE of the following: *Sequential Compression Device (SCD) *Heparin 5000 units SQ BID 3-4 Higher Order ONE of the following medications: *Heparin 5000 units SQ TID *Enoxaparin/Lovenox 40 mg SQ daily (WT < 150 kg, CrCl > 30 mL/min) *Enoxaparin/Lovenox 30 mg SQ daily (WT < 150 kg, CrCl > 10-29 mL/min) *Enoxaparin/Lovenox 30 mg SQ BID (WT < 150 kg, CrCl > 30 mL/min) AND/OR *Sequential Compression Device (SCD) 5 or more Highest Order ONE of the following medications: *Heparin 5000 units SQ TID (Preferred with Epidurals) *Enoxaparin/Lovenox 40 mg SQ daily (WT < 150 kg, CrCl > 30 mL/min) *Enoxaparin/Lovenox 30 mg SQ daily (WT < 150 kg, CrCl > 10-29 mL/min) *Enoxaparin/Lovenox 30 mg SQ BID (WT < 150 kg, CrCl > 30 mL/min) AND *Sequential Compression Device (SCD) Assessment and Plan - Assessment (1) Sepsis Code(s): A41.9 - Sepsis, unspecified organism Status: Suspected (2) Pancytopenia Code(s): D61.818 - Other pancytopenia Status: Acute (3) Tachycardia Code(s): R00.0 - Tachycardia, unspecified Status: Acute (4) Cancer of head and neck Code(s): C76.0 - Malignant neoplasm of head, face and neck Status: Acute (5) Acute hyperkalemia Code(s): E87.5 - Hyperkalemia Status: Acute (6) Acidosis, lactic Code(s): E87.2 - Acidosis Status: Acute - Plan Patient is a 62-year-old male who presents to the emergency room with a history of frequent falls, head injury and seizure just prior to arrival. 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 Ramirez), hypertension, diabetes and depression. 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 He was previous discharged from the hospital on 02/06/18 after being admitted for sepsis/pneumonia. Lactic acidosis; sepsis? dehydration? malignancy? T99.0; HR 133 (improved to 109 w/ bolus); BP WNL; RR 28; WBC WNL; neg chest xray -3 L NS bolus given in ED -Zosyn and vancomycin given ED Hyperkalemia -Mild; will recheck after bolus Frequent falls -PT eval ordered Seizure -No previous history -MRI head and EEG ordered -Start [facility] -Neuro consult placed; appreciate assistance Squamous cell carcinoma of the oropharynx -Had good response to recent treatment per oncology -Scheduled for PET/CT imaging May 2018 Status post PEG -Dietary consult; concern for malnutrition/dehydration Restart home medications for chronic conditions as indicated. DVT prophylaxis: SCDs (pending head imaging) Discussed with: Patient, nurse, Dr. Devine, Dr. Hummel Discharge planning: Likely home, may need social service follow-up. Patient lives alone.
[2018-03-29 17:46] LABS: ABG Base Excess -0.8 mmol/L (-2-2); ABG PCO2 35 mmHg (38-42); ABG PO2 85 mmHg (61-120)
[2018-03-29] MEDS: Insulin NovoLOG Aspart Correctional Sugar Inj SQ SCH ×2 (17:55→23:32)
[2018-03-29] MEDS ORDERED: Gadobutrol PF 10 MMOL/10 ML Vial (for RAD) IV.SIG ONE (19:41)
--- NOTE | 2018-03-29 19:56 | MR ---
EXAM DATE: 03/29/2018 7:35 PM EDT AGE/SEX: 62 years / Male INDICATIONS: Frequent falls. Possible seizure. CLINICAL DATA: This is the patient's initial encounter. Patient reports that signs and symptoms have been present for 1 day and indicates a pain score of 0/10. MEDICAL/SURGICAL HISTORY: Diabetes mellitus type II. Hypertension. Throat CA. . Right arm. C arpal tunnel. Peg tube placement. COMPARISON: No prior exams available for comparison. TECHNIQUE: Multiplanar, multisequence examination of the brain was performed without and with 8 ml Ga davist (gadobutrol) contrast as a single exam dose. FINDINGS: Cerebrum: There is focal region of decreased T1 cortical signal with loss of waller-white matter differ entiation and increased FLAIR signal in the left frontal high convexities at the vertex. No associate d restricted diffusion with T2 shine through on ADC maps. No associated abnormal enhancement or focal mass in this region. The ventricles are normal for age. No evidence of midline shift. No extraaxia l fluid collections are seen. The pituitary gland and suprasellar cistern are normal in configuratio n. White Matter: No significant signal abnormalities are seen in the white matter. Posterior Fossa: The cerebellum and brainstem are intact. The 4th ventricle is midline. The cerebel lopontine angle is unremarkable. The cerebellar tonsils are normal in position. Diffusion Imaging: No focal areas of restricted diffusion are seen. No evidence of acute infarction . Extracranial: The visualized portions of the orbits and paranasal sinuses are unremarkable. Post Contrast: No abnormal areas of parenchymal or dural enhancement. No evidence of blood-brain ba rrier breakdown. CONCLUSION: 1. Focal region of abnormal cortical signal without restricted diffusion or abnormal enhancement/mas s in the left frontal high convexities at the vertex. This is most consistent with a subacute focal r egion of infarction. Electronically signed by: Aleksey Moreno MD 03/29/2018 7:54 PM EDT
[2018-03-29] MEDS ORDERED: levETIRAcetam 250 MG Tablet PO SCH (21:00)
[2018-03-30 06:06] LABS: Anion Gap 7 meq/L (5-15); Blood Urea Nitrogen 7 mg/dL (7-18); Calcium 7.7 mg/dL (8.5-10.1); Carbon Dioxide 28.4 meq/L (21.0-32.0); Chloride 104 meq/L (98-107); Glomerular Filtration Rate Greater Than 89 mL/min (>89); Glucose,Random 104 mg/dL (74-106); Magnesium 1.3 mg/dL (1.5-2.5); Potassium 3.8 meq/L (3.5-5.1); Sodium 139 meq/L (136-145)
[2018-03-30 06:13] LABS: Creatine Kinase 54 U/L (39-308)
[2018-03-30] MEDS: Insulin NovoLOG Aspart Correctional Sugar Inj SQ SCH ×4 (08:44→21:17)
[2018-03-30 11:20] LABS: Free T4 (Free Thyroxine) 1.03 ng/dL (0.76-1.46); Thyroid Stimulating Hormone 1.04 uIU/mL (0.358-3.740)
[2018-03-30] MEDS ORDERED: Gadobutrol PF 10 MMOL/10 ML Vial (for RAD) IV.SIG ONE (11:40)
--- NOTE | 2018-03-30 12:26 | MR ---
EXAM DATE: 03/30/2018 12:20 PM EDT AGE/SEX: 62 years / Male INDICATIONS: CVA. CLINICAL DATA: This is the patient's initial encounter. Patient reports that signs and symptoms have been present for 2 days and indicates a pain score of 0/10. MEDICAL/SURGICAL HISTORY: Carcinoma, pharyngeal. Diabetes mellitus type II. Hypertension. . S Kin graft, PEG tube. COMPARISON: [facility], MR HEAD W & W/O CONTRAST, 03/29/2018. . TECHNIQUE: 3D [id number] MRA was performed. Source images, multiplanar STS MIP, and 3D volum e MIP reconstructions were reviewed. FINDINGS: There is excellent visualization of the major intracranial arteries out to the second-order branch ve ssels. There is no evidence for aneurysm, vessel truncation or stenosis, and no evidence for vascula r malformation. CONCLUSION: No intracranial vascular abnormality is identified. Electronically signed by: Trung Harris MD 03/30/2018 12:25 PM EDT
--- NOTE | 2018-03-30 12:39 | MR ---
EXAM DATE: 03/30/2018 12:27 PM EDT AGE/SEX: 62 years / Male INDICATIONS: . CVA CLINICAL DATA: This is the patient's initial encounter. Patient reports that signs and symptoms have been present for 1 day and indicates a pain score of 0/10. MEDICAL/SURGICAL HISTORY: Carcinoma, pharyngeal. Diabetes mellitus type II. Hypertension. . S Kin graft, PEG tube. COMPARISON: [facility] – [place], [place] SOFT TISSUE NECK W CONTRAST, 06/22/2017. . TECHNIQUE: 10cc ml Gadavist (gadobutrol) contrast infused MRA (single exam dose) of the extracrania l circulation was performed using a neurovascular coil. Postprocessing was performed, including rota ting sub-volume maximum intensity projections of each carotid artery, rotating full-volume maximum in tensity projections of both carotid arteries, sagittal and coronal sliding thin-slab reformations of each carotid artery, and left oblique sliding thin-slab reformation through the aortic arch to includ e the origin of the arch branch vessels. FINDINGS: Aortic Arch : There is a three-vessel origin of the great vessels from the aorta. No evidence of o stial narrowing. Right Carotid : Common carotid artery is within normal limits. There is mild irregularity of the car otid bulb without significant stenosis. Internal and external carotid artery demonstrate no significa nt stenosis. Left Carotid : Common carotid artery is within normal limits. There is a luminal irregularity in the carotid bulb secondary to atherosclerotic plaque. However, no significant stenosis is present. The i nternal and external carotid artery demonstrate no significant abnormality. Vertebrals : The vertebral arteries have a symmetric diameter. No stenotic lesions are seen. CONCLUSION: Mild atherosclerotic plaque in the carotid bulbs bilaterally. However, there is a less than 50% steno sis. Percent stenosis is calculated using the diameter of the stenotic region over the diameter of the nor mal distal internal carotid artery Electronically signed by: Trung Harris MD 03/30/2018 12:38 CIPRIANOT
--- NOTE | 2018-03-30 13:21 | P.PNIM ---
Subjective Interval history: Chief Complaint: Seizure History of Present Illness: Patient is a 62-year-old male who presents to the emergency room with a history of frequent falls, head injury and seizure just prior to arrival. 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 Ramirez), hypertension, diabetes and depression. 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 Apparently he has had several falls after which he refused to come to the hospital. After his most recent one he experienced a seizure which caused him to decide to come in. He has no history of seizures. At admit this visit he is noted to have lactic acidosis, per Dr. Devine ED physician he was seen in the emergency room on 03/23/18 for similar. At that time he was rehydrated after which symptoms resolved and he returned home. Prior to that he was discharged from the hospital on 02/06/18 after being admitted for sepsis/pneumonia. Patient is seen in room. No family is at bedside. He appears to be a somewhat unreliable historian; he is oriented to self time and location but recall of recent events is sometimes unclear. He tells me that he has had 3 falls in the last month. Yesterday he fell while trying to go to the bathroom. He did experience incontinence of urine after that episode. This morning he fell in his living room and when he came to he noticed that his hands were shaking and he could not make them stop. Experienced some dizziness prior to all falls. No changes in vision. No headache. No nausea or vomiting. No unwitnessed falls or seizures. 03-30 MRI OF HEAD IS POSITIVE FOR SUBACUTE INFARCT ECHO IS PENDING CAROTIDS ARE STABLE NEEDS ASPIRIN DW RN AND PT AND CM STATES HAS SOME PO INTAKE AND DOES TUBE FEEDS Physical Exam Vital signs: Vital Signs 03/29/18 14:53 03/29/18 15:09 03/29/18 17:30 Temperature 99.0 F Pulse Rate 133 H 109 H Respiratory Rate 28 H 18 Blood Pressure 155/94 H 139/74 Pulse Oximetry 98 98 98 03/29/18 18:18 03/29/18 20:00 03/30/18 00:00 Temperature 97.4 F L 98.6 F 98.7 F Pulse Rate 107 H 94 H 103 H Respiratory Rate 18 20 18 Blood Pressure 134/77 133/75 142/79 H Pulse Oximetry 100 98 97 03/30/18 04:00 03/30/18 08:00 03/30/18 08:40 Temperature 98.2 F 98 F Pulse Rate 95 H 92 H 96 H Respiratory Rate 18 15 Blood Pressure 127/76 124/83 Pulse Oximetry 99 99 99 Intake & Output 03/29/18 03/30/18 03/30/18 18:59 06:59 18:59 Intake Total 3100 / 3100 125 / 125 Output Total 3 / 3 Balance 3100 / 3100 122 / 122 Weight 80.739 kg Intake: IV 3100 / 3100 125 / 125 Zosyn 4.5 GM Premix 4.5 gm In 100 / 100 100 ml @ 200 mls/hr IV.SIG STAT STA Rx#:[id number] NS Inj 1,000 ML @ Wide Open IV. 3000 / 3000 SIG BOLUS NICOLE Rx#:[id number] Vancomycin Inj 1,000 MG In NS 125 / 125 Inj 250 ML @ 250 mls/hr IV.SIG STAT STA Rx#:[id number] Output: Urine 3 / 3 Urine/Stool Mix 0 / 0 Other: Date of Last Bowel Movement 03/28/18 Narrative: GENERAL: Well-nourished, well-developed adult male in no obvious distress. SKIN: Warm and dry. EYES: PERRLA HEAD: Normocephalic. Bruising around both eyes. Multiple small lacerations/ abrasions with one larger laceration to right middle forehead -healing. CARDIOVASCULAR: Regular rate and rhythm. RESPIRATORY: No accessory muscle use. Clear to auscultation. Breath sounds equal bilaterally. GASTROINTESTINAL: Abdomen soft, non-tender, non-distended. Positive bowel sounds. PEG. MUSCULOSKELETAL: Extremities without clubbing, cyanosis, or edema. No obvious deformities. NEUROLOGICAL: Awake and alert. No obvious cranial nerve deficits. No facial droop. Motor grossly within normal limits. 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 normal speech. Results - Labs CBC & Chem 7: 03/29/18 15:26 03/30/18 05:15 Laboratory Results - last 24 hr 03/29/18 03/29/18 03/29/18 14:49 15:26 15:26 WBC 9.5 RBC 3.39 L Hgb 12.6 L Hct 37.0 L MCV 109.0 H MCH 37.1 H MCHC 34.1 RDW 16.9 Plt Count 259 D MPV 7.6 Prelim Diff (Auto) Slide review pending Neut % (Auto) 69.0 Lymph % (Auto) 12.3 Mccracken % (Auto) 16.7 H Eos % (Auto) 1.5 Baso % (Auto) 0.5 Neut # (Auto) 6.6 Lymph # (Auto) 1.2 Mccracken # (Auto) 1.6 H Eos # (Auto) 0.1 Baso # (Auto) 0.0 WBC Differential . Diff Scan Auto diff confirmed Differential Comment . Platelet Estimate Normal Platelet Morphology Normal Puncture Site Patient Temperature O2 Saturation ABG pH ABG pCO2 ABG pO2 ABG HCO3 ABG O2 Content ABG Base Excess ABG Methemoglobin Kevin Test Hemoglobin Carboxyhemoglobin O2 Delivery Device Inspired O2 Critical Value Sodium 136 Potassium 5.6 H Chloride 100 Carbon Dioxide 20.6 L Anion Gap 15 BUN 8 Creatinine 0.98 Estimated GFR 77 L POC Glucose 212 H Random Glucose 182 H Lactic Acid Calcium 9.0 Magnesium 1.6 Total Bilirubin 0.5 AST 69 H ALT 20 Alkaline Phosphatase 83 Total Creatine Kinase Total Protein 8.0 D Albumin 3.5 Vitamin B12 TSH Free T4 Urine Color Urine Clarity Urine pH Ur Specific Pioneer Urine Protein Urine Glucose (UA) Urine Ketones Urine Occult Blood Urine Nitrate Urine Bilirubin Urine Urobilinogen Ur Leukocyte Esterase Urine WBC Hyaline Casts Urine Mucus Micro UA Comment Ur Microscopic Review Urine Culture Comments 03/29/18 03/29/18 03/29/18 15:26 16:33 17:39 WBC RBC Hgb Hct MCV MCH MCHC RDW Plt Count MPV Prelim Diff (Auto) Neut % (Auto) Lymph % (Auto) Mccracken % (Auto) Eos % (Auto) Baso % (Auto) Neut # (Auto) Lymph # (Auto) Mccracken # (Auto) Eos # (Auto) Baso # (Auto) WBC Differential Diff Scan Differential Comment Platelet Estimate Platelet Morphology Puncture Site Right radial Patient Temperature 98.6 O2 Saturation 94 ABG pH 7.43 H ABG pCO2 35 L ABG pO2 85 ABG HCO3 23 ABG O2 Content 14.2 ABG Base Excess -0.8 ABG Methemoglobin 0.3 Kevin Test Y Hemoglobin 10.7 L Carboxyhemoglobin 1.9 O2 Delivery Device Room air Inspired O2 21 Critical Value No Sodium Potassium Chloride Carbon Dioxide Anion Gap BUN Creatinine Estimated GFR POC Glucose Random Glucose Lactic Acid 5.7 H* Calcium Magnesium Total Bilirubin AST ALT Alkaline Phosphatase Total Creatine Kinase Total Protein Albumin Vitamin B12 TSH Free T4 Urine Color Straw Urine Clarity Clear Urine pH 6.0 Ur Specific Pioneer 1.006 Urine Protein Negative Urine Glucose (UA) 50 Urine Ketones Negative Urine Occult Blood Negative Urine Nitrate Negative Urine Bilirubin Negative Urine Urobilinogen Less than 2 Ur Leukocyte Esterase Negative Urine WBC 2 Hyaline Casts 1 Urine Mucus Few H Micro UA Comment Culture not ind Ur Microscopic Review Not Reportable Urine Culture Comments Culture not ind 03/29/18 03/29/18 03/29/18 17:45 21:40 21:47 WBC RBC Hgb Hct MCV MCH MCHC RDW Plt Count MPV Prelim Diff (Auto) Neut % (Auto) Lymph % (Auto) Mccracken % (Auto) Eos % (Auto) Baso % (Auto) Neut # (Auto) Lymph # (Auto) Mccracken # (Auto) Eos # (Auto) Baso # (Auto) WBC Differential Diff Scan Differential Comment Platelet Estimate Platelet Morphology Puncture Site Patient Temperature O2 Saturation ABG pH ABG pCO2 ABG pO2 ABG HCO3 ABG O2 Content ABG Base Excess ABG Methemoglobin Kevin Test Hemoglobin Carboxyhemoglobin O2 Delivery Device Inspired O2 Critical Value Sodium Potassium Chloride Carbon Dioxide Anion Gap BUN Creatinine Estimated GFR POC Glucose 176 H 103 Random Glucose Lactic Acid 1.3 Calcium Magnesium Total Bilirubin AST ALT Alkaline Phosphatase Total Creatine Kinase Total Protein Albumin Vitamin B12 TSH Free T4 Urine Color Urine Clarity Urine pH Ur Specific Pioneer Urine Protein Urine Glucose (UA) Urine Ketones Urine Occult Blood Urine Nitrate Urine Bilirubin Urine Urobilinogen Ur Leukocyte Esterase Urine WBC Hyaline Casts Urine Mucus Micro UA Comment Ur Microscopic Review Urine Culture Comments 03/30/18 03/30/18 03/30/18 05:15 05:15 08:11 WBC RBC Hgb Hct MCV MCH MCHC RDW Plt Count MPV Prelim Diff (Auto) Neut % (Auto) Lymph % (Auto) Mccracken % (Auto) Eos % (Auto) Baso % (Auto) Neut # (Auto) Lymph # (Auto) Mccracken # (Auto) Eos # (Auto) Baso # (Auto) WBC Differential Diff Scan Differential Comment Platelet Estimate Platelet Morphology Puncture Site Patient Temperature O2 Saturation ABG pH ABG pCO2 ABG pO2 ABG HCO3 ABG O2 Content ABG Base Excess ABG Methemoglobin Kevin Test Hemoglobin Carboxyhemoglobin O2 Delivery Device Inspired O2 Critical Value Sodium 139 Potassium 3.8 D Chloride 104 Carbon Dioxide 28.4 Anion Gap 7 BUN 7 Creatinine 0.56 L Estimated GFR Greater than 89 POC Glucose 164 H Random Glucose 104 Lactic Acid 0.6 Calcium 7.7 L D Magnesium 1.3 L Total Bilirubin AST ALT Alkaline Phosphatase Total Creatine Kinase 54 Total Protein Albumin Vitamin B12 TSH Free T4 Urine Color Urine Clarity Urine pH Ur Specific Pioneer Urine Protein Urine Glucose (UA) Urine Ketones Urine Occult Blood Urine Nitrate Urine Bilirubin Urine Urobilinogen Ur Leukocyte Esterase Urine WBC Hyaline Casts Urine Mucus Micro UA Comment Ur Microscopic Review Urine Culture Comments 03/30/18 03/30/18 10:10 12:00 WBC RBC Hgb Hct MCV MCH MCHC RDW Plt Count MPV Prelim Diff (Auto) Neut % (Auto) Lymph % (Auto) Mccracken % (Auto) Eos % (Auto) Baso % (Auto) Neut # (Auto) Lymph # (Auto) Mccracken # (Auto) Eos # (Auto) Baso # (Auto) WBC Differential Diff Scan Differential Comment Platelet Estimate Platelet Morphology Puncture Site Patient Temperature O2 Saturation ABG pH ABG pCO2 ABG pO2 ABG HCO3 ABG O2 Content ABG Base Excess ABG Methemoglobin Kevin Test Hemoglobin Carboxyhemoglobin O2 Delivery Device Inspired O2 Critical Value Sodium Potassium Chloride Carbon Dioxide Anion Gap BUN Creatinine Estimated GFR POC Glucose 185 H Random Glucose Lactic Acid Calcium Magnesium Total Bilirubin AST ALT Alkaline Phosphatase Total Creatine Kinase Total Protein Albumin Vitamin B12 647 TSH 1.040 Free T4 1.03 Urine Color Urine Clarity Urine pH Ur Specific Pioneer Urine Protein Urine Glucose (UA) Urine Ketones Urine Occult Blood Urine Nitrate Urine Bilirubin Urine Urobilinogen Ur Leukocyte Esterase Urine WBC Hyaline Casts Urine Mucus Micro UA Comment Ur Microscopic Review Urine Culture Comments Microbiology 03/29/18 15:20 Blood - Peripheral Aerobic Blood Culture - Preliminary No growth in 1 day 03/29/18 15:20 Blood - Peripheral Anaerobic Blood Culture - Preliminary No growth in 1 day 03/29/18 15:26 Blood - Peripheral Aerobic Blood Culture - Preliminary No growth in 1 day 03/29/18 15:26 Blood - Peripheral Anaerobic Blood Culture - Preliminary No growth in 1 day - Imaging Impressions Head MRI 03/29/18 00:00 CONCLUSION: 1. Focal region of abnormal cortical signal without restricted diffusion or abnormal enhancement/mass in the left frontal high convexities at the vertex. This is most consistent with a subacute focal region of infarction. Chest X-Ray 03/29/18 15:04 CONCLUSION: Clear lungs. Head CT 03/29/18 15:57 CONCLUSION: 1. No acute hemorrhage or mass effect. 2. 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 . Neck MRA 03/30/18 00:00 CONCLUSION: Mild atherosclerotic plaque in the carotid bulbs bilaterally. However, there is a less than 50% stenosis. Percent stenosis is calculated using the diameter of the stenotic region over the diameter of the normal distal internal carotid artery Head MRA 03/30/18 09:35 CONCLUSION: No intracranial vascular abnormality is identified. Assessment and Plan - Assessment (1) Sepsis Code(s): A41.9 - Sepsis, unspecified organism Status: Suspected (2) Pancytopenia Code(s): D61.818 - Other pancytopenia Status: Acute (3) Tachycardia Code(s): R00.0 - Tachycardia, unspecified Status: Acute (4) Cancer of head and neck Code(s): C76.0 - Malignant neoplasm of head, face and neck Status: Acute (5) Acute hyperkalemia Code(s): E87.5 - Hyperkalemia Status: Acute (6) Acidosis, lactic Code(s): E87.2 - Acidosis Status: Acute - Plan Patient is a 62-year-old male who presents to the emergency room with a history of frequent falls, head injury and seizure just prior to arrival. 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 Ramirez), hypertension, diabetes and depression. 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 He was previous discharged from the hospital on 02/06/18 after being admitted for sepsis/pneumonia. Lactic acidosis; sepsis? dehydration? malignancy? T99.0; HR 133 (improved to 109 w/ bolus); BP WNL; RR 28; WBC WNL; neg chest xray -3 L NS bolus given in ED -Zosyn and vancomycin given ED Hyperkalemia -Mild; will recheck after bolus Frequent falls -PT eval ordered Seizure -No previous history -MRI head and EEG ordered MRI WAS ABNORMAL- CONSULT PT AND OT AND ST START ASPIRIN -Start Keppra -Neuro consult placed; appreciate assistance Squamous cell carcinoma of the oropharynx -Had good response to recent treatment per oncology -Scheduled for PET/CT imaging May 2018 Status post PEG -Dietary consult; concern for malnutrition/dehydration WANTS PO LIQUIDS TOO Restart home medications for chronic conditions as indicated. DVT prophylaxis: SCDs (pending head imaging) Discharge planning: Likely home, may need social service follow-up. Patient lives alone. Code Status: FULL CODE Discussed Condition With: RN AND PT AND CM Discharge Planning: PENDING NEUROLOGICAL CLEARANCE
[2018-03-30] MEDS ORDERED: Magnesium Sulfate Inj 4 GM in Sodium Chlor 0.9% Inj 92 ML IV.SIG ONE (14:00)
--- NOTE | 2018-03-30 14:20 | MB ---
cc: Geoffrey Douglas MD DATE: 03/30/2018 REQUESTING PHYSICIAN: Hospitalist. REASON FOR CONSULTATION: Evaluation of history of squamous cell cancer of the oropharynx, admitted with fall and seizure. This is a 62-year-old gentleman with a history of alcohol and smoking who was diagnosed with squamous cell cancer of the oropharynx, treated with chemoradiation, completed on 02/21/[address] Ramirez, has been admitted with recent frequent falls and seizure status post right head injury without evidence of bleeding. The patient claims that he drinks 6 packs of beer every day and has been having frequent falls, which is confirmed by his son who was at the bedside. He told me that he did not have a history of seizures, but this is the first time he has noted his father having seizures after the fall and he suspects that his recent falls have been due to new onset of seizures. Mr. Choi denies any headaches or motor or sensory symptoms at this point. In addition, he does not have any sore throat or dysphagia. No cough, chest pain, or shortness of breath. No abdominal pain, distention, blood in stool or black stools. No frequency, urgency, or hematuria. No fevers, night sweats, or recent weight loss. REVIEW OF SYSTEMS: As above. PAST MEDICAL HISTORY: He has diabetes, hypertension, depression, oropharyngeal squamous cell cancer. PAST SURGICAL HISTORY: In addition to vascular access and PEG placement, he has had a history of a skin graft to the right forearm secondary to nonhealing of wound. FAMILY HISTORY: Noncontributory. Heavy smoking and alcohol use as mentioned above. MEDICATIONS: 1. Dulcolax. 2. Clonidine. 3. Insulin. 4. Lactulose. 5. Keppra. 6. Magnesium. 7. Metformin. 8. Senokot. 9. Zosyn. PHYSICAL EXAMINATION: GENERAL: This is a gentleman in no apparent distress. Bruised right side of the face, especially around the orbit, with no evidence of active bleeding. HEENT: Pupils bilaterally equal size and reaction. Pallor present. No icterus. No palpable adenopathy in the neck or axilla. HEENT without significant oropharyngeal lesions. NEUROLOGIC: Alert, oriented x4. Moving all 4 extremities, 5/5 motor strength in all 4 extremities. No meningeal signs. No JVD. CARDIOVASCULAR: S1, S2, regular rate and rhythm. LUNGS: Bilaterally clear without crackles or wheeze. ABDOMEN: Soft without palpable organomegaly. EXTREMITIES: Without evidence of DVTs in the legs and right upper extremity with plastic surgery scar. LABORATORY DATA: Significant for GFR more than 89. Calcium 7.7, magnesium 1.3. B12 is 647. White count 9.5, hemoglobin 12.6, platelets 259. DIAGNOSTIC DATA: CT head, noncontrast, showed chronic low density subdural hygromas over both frontal lobes. No evidence of midline shift, no acute hemorrhage, or mass effect. MRI of the head focal abnormal cortical signal without restricted effusion or abnormal enhancement/mass in the left frontal convexity, most consistent with subacute focal region of infarction. Two-D echo results pending. MRA of the neck shows mild atherosclerotic plaque in the carotid bulbs bilaterally. Less than 50% stenosis and head MRA without intracranial vascular abnormality. ASSESSMENT AND PLAN: A 62-year-old gentleman with a history of alcohol abuse, status post multiple falls, possibly related to alcohol and seizures secondary to alcohol and hypomagnesemia. No evidence of metastatic oropharyngeal cancer at this time. No indication for oncologic intervention. Dr. Ramirez will follow up in the outpatient and his current management will be per hospitalist team. Geoffrey Douglas MD [facility]/ , 01:38 PM , 01:48 PM
--- NOTE | 2018-03-30 18:02 | ECHRPT ---
Indication: CVA/TIA CONCLUSIONS The left ventricular systolic function is mildly reduced with an estimated ejection fraction in the range of 40- 45%. Wall thickness is normal. Normal left ventricular size. There is mild tricuspid valve regurgitation. The estimated pulmonary arterial pressure is 28 mmHg. BP: / HR: Rhythm: Sinus MEASUREMENTS (Male / Female) Normal Values Technical Quality:Fair 2D ECHO LV Diastolic Diameter PLAX 3.2 cm 4.2 - 5.9 / 3.9 - 5.3 cm LV Systolic Diameter PLAX 2.6 cm IVS Diastolic Thickness 1.0 cm 0.6 - 1.0 / 0.6 - 0.9 cm LVPW Diastolic Thickness 1.0 cm 0.6 - 1.0 / 0.6 - 0.9 cm LV Relative Wall Thickness 0.6 LVOT Diameter 2.3 cm DOPPLER AV Peak Velocity 100.0 cm/s AV Peak Gradient 4.0 mmHg LVOT Peak Velocity 83.9 cm/s LVOT Peak Gradient 2.8 mmHg AV Area Cont Eq pk 3.5 cm Mitral E Point Velocity 73.1 cm/s Mitral A Point Velocity 66.6 cm/s Mitral E to A Ratio 1.1 LV E' Lateral Velocity 7.3 cm/s Mitral E to LV E' Lateral Ratio 10.0 LV E' Septal Velocity 7.9 cm/s Mitral E to LV E' Septal Ratio 9.3 TR Peak Velocity 212.0 cm/s TR Peak Gradient 18.0 mmHg Right Atrial Pressure 10.0 mmHg Pulmonary Artery Systolic Pressu 28.0 mmHg Right Ventricular Systolic Press 28.0 mmHg PV Peak Velocity 105.0 cm/s PV Peak Gradient 4.4 mmHg FINDINGS LEFT VENTRICLE The left ventricular systolic function is reduced with an estimated ejection fraction in the range o f 40-45%. Global hypokinesis Wall thickness is normal. Normal left ventricular size. RIGHT VENTRICLE Normal right ventricular size and systolic function. LEFT ATRIUM The left atrial size is normal. RIGHT ATRIUM The right atrial size is normal. ATRIAL SEPTUM Normal atrial septal thickness without atrial level shunting by limited color doppler interrogation. AORTA The aortic root and proximal ascending aorta are normal in size on limited imaging. MITRAL VALVE Structurally normal mitral valve. No mitral valve stenosis or regurgitation. AORTIC VALVE Trileaflet aortic valve. No aortic valve stenosis or regurgitation. TRICUSPID VALVE There is mild tricuspid valve regurgitation. The estimated pulmonary arterial pressure is 28 mmHg. PULMONARY VALVE No pulmonary valve regurgitation or stenosis. VESSELS The inferior vena cava is normal in size. PERICARDIUM No pericardial effusion. Elvira Frances MD, FACC (Electronically Signed) Final Date:30 March 2018 18:02
--- NOTE | 2018-03-31 00:40 | ECG ---
Date Performed: 03/29/2018 Time Performed: 14:49:09 PTAGE: 62 years EKG: SINUS TACHYCARDIA INDETERMINATE AXIS ABNORMAL RHYTHM ECG PREVIOUS TRACING : 03/23/2018 11.08 DOCTOR: Giuseppe Sargent Interpretating Date/Time 03/31/2018 00:39:21
[2018-03-31 05:44] LABS: Baso % (Auto) 0.3 % (0.0-2.0); Eos # (Auto) 0.2 th/mm3 (0.0-0.4); Eos % (Auto) 1.9 % (0.0-4.0); Hematocrit 28.9 % (39.0-51.0); Hemoglobin 10.3 gm/dL (13.0-17.0); Lymph # (Auto) 0.3 th/mm3 (1.0-4.8); Lymph % (Auto) 4.3 % (9.0-44.0); Mean Corpuscular HGB Conc 35.8 % (32.0-36.0); Mean Corpuscular Hemoglobin 37.9 pg (27.0-34.0); Mean Corpuscular Volume 105.9 fL (80.0-100.0); Mean Platelet Volume 6.3 fL (7.0-11.0); Mono # (Auto) 0.8 th/mm3 (0.0-0.9); Mono % (Auto) 9.9 % (0.0-8.0); Neut # (Auto) 6.7 th/mm3 (1.8-7.7); Neut % (Auto) 83.6 % (16.0-70.0); Platelet Count 185 th/mm3 (150-450); Red Blood Count 2.73 mil/mm3 (4.50-5.90); Red Cell Distribution Width 16.3 % (11.6-17.2)
[2018-03-31 05:57] LABS: INR 1.1 Ratio; Prothrombin Time 10.9 sec (9.8-11.6)
[2018-03-31 06:29] LABS: Alanine Aminotransferase 14 U/L (12-78); Albumin 2.9 g/dL (3.4-5.0); Alkaline Phosphatase 73 U/L (45-117); Anion Gap 7 meq/L (5-15); Aspartate Aminotransferase 10 U/L (15-37); Blood Urea Nitrogen 8 mg/dL (7-18); Calcium 8.1 mg/dL (8.5-10.1); Carbon Dioxide 29.2 meq/L (21.0-32.0); Chloride 100 meq/L (98-107); Chol/HDL Ratio 2.34 Ratio; Cholesterol 93 mg/dL (120-200); Glomerular Filtration Rate Greater Than 89 mL/min (>89); Glucose,Random 113 mg/dL (74-106); HDL Cholesterol 39.7 mg/dL (40.0-60.0); LDL Cholesterol,Calculated 33 mg/dL (0-99); Magnesium 1.7 mg/dL (1.5-2.5); Potassium 3.7 meq/L (3.5-5.1); Sodium 136 meq/L (136-145); Thyroid Stimulating Hormone 0.825 uIU/mL (0.358-3.740); Total Protein 6.5 g/dL (6.4-8.2); Triglycerides 102 mg/dL (42-150)
[2018-03-31] MEDS: Insulin NovoLOG Aspart Correctional Sugar Inj SQ SCH ×4 (08:36→20:59)
--- NOTE | 2018-03-31 09:59 | P.DIET ---
Nutritional Evaluation Type of nutrition evaluation: initial Nutrition consult regarding: Tube Feeding Nutrition screening: [facility] [place] Risk level: Level 1 Screening comments: 03/29/18 [facility] [place] TF'ing Subjective Oral Diet Tolerance Assessment Indicates: Swallowing problems Objective - Diagnosis Seizure - Objective % IBW: 94 Body Weight Used for Calculations: Actual (71.2kg bedscale wt) Energy Needs - Lower Range (kCal/kg): 25 Energy Needs - Upper Range (kCal/kg): 30 Lower Limit kCal/kg (kCals): 1,780 Upper Limit kCal/kg (kCals): 2,136 Lower Limit Protein Factor (Grams per Kg): 1.2 Upper Limit Protein Factor (Grams per Kg): 1.5 Lower Protein Needs (Protein): 85 Upper Protein Needs (Protein): 107 Fluid Factor (ml/kg): 30 Estimated Fluid Needs (ml): 2,136 Dietitian Reviewed in Medical Record: Current diet, Curent medications, Intake & Output, Labs, Medical history, Tube feeding Diet Order: TF'ing bolus Glucerna 1.5 5-cans and Full Liquid for Pleasure Objective Comments: PMH includes: Depression, DM, HTN, 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 Bolus feedings w/Glucerna 1.5 of 240ml @ 8am, 12pm, 4pm, 8pm and 12am provides for pt's assessed needs and will offer 1780 kcal, 98g protein and 900ml free water. Send oral nutritional supplement Glucerna Shakes TID. Free Water Flushes per MD. Labs reviewed. Dietitian following. Recommendations: 1. Bolus feedings w/Glucerna 1.5 of 240ml @ 8am, 12pm, 4pm, 8pm and 12am provides for pt's assessed needs 2. Send oral nutritional supplement Glucerna Shakes TID 3. Free Water Flushes per MD 4. Dietitian following Dietitian to Monitor: Lab values, Glucose level, Supplement acceptance, Intake & Output, Diet tolerance, Tube feeding tolerance, Weight change, PO Intake, Medical course
[2018-03-31 13:52] LABS: Hemoglobin A1c 5.1 % (4.3-6.0)
--- NOTE | 2018-03-31 14:22 | P.PNIM ---
Subjective Interval history: Chief Complaint: Seizure History of Present Illness: Patient is a 62-year-old male who presents to the emergency room with a history of frequent falls, head injury and seizure just prior to arrival. 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 Ramirez), hypertension, diabetes and depression. 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 Apparently he has had several falls after which he refused to come to the hospital. After his most recent one he experienced a seizure which caused him to decide to come in. He has no history of seizures. At admit this visit he is noted to have lactic acidosis, per Dr. Devien ED physician he was seen in the emergency room on 03/23/18 for similar. At that time he was rehydrated after which symptoms resolved and he returned home. Prior to that he was discharged from the hospital on 02/06/18 after being admitted for sepsis/pneumonia. Patient is seen in room. No family is at bedside. He appears to be a somewhat unreliable historian; he is oriented to self time and location but recall of recent events is sometimes unclear. He tells me that he has had 3 falls in the last month. Yesterday he fell while trying to go to the bathroom. He did experience incontinence of urine after that episode. This morning he fell in his living room and when he came to he noticed that his hands were shaking and he could not make them stop. Experienced some dizziness prior to all falls. No changes in vision. No headache. No nausea or vomiting. No unwitnessed falls or seizures. 03-30 MRI OF HEAD IS POSITIVE FOR SUBACUTE INFARCT ECHO IS PENDING CAROTIDS ARE STABLE NEEDS ASPIRIN DW RN AND PT AND CM STATES HAS SOME PO INTAKE AND DOES TUBE FEEDS 03-31 WAS SEEN BY [facility]- NOTE IS NOT AVAILABLE ?CVA/INFARCT PER MRI CAROTIDS STABLE ECHO 40-45% HAS SEEN PT AND OT EEG DONE RESULTS PENDING NEEDS PT 7 DAYS A WEEK Physical Exam Vital signs: Vital Signs 03/30/18 16:00 03/30/18 20:00 03/30/18 20:30 Temperature 98.5 F 97.8 F Pulse Rate 98 H 102 H 110 H Respiratory Rate 17 19 Blood Pressure 127/79 135/78 Pulse Oximetry 100 99 03/31/18 00:00 03/31/18 00:30 03/31/18 04:00 Temperature 98.0 F 98.0 F Pulse Rate 94 H 97 H 94 H Respiratory Rate 18 18 Blood Pressure 141/86 H 141/86 H Pulse Oximetry 98 98 03/31/18 08:00 Temperature 97.7 F Pulse Rate 121 H Respiratory Rate 18 Blood Pressure 93/65 L Pulse Oximetry 100 Intake & Output 03/30/18 03/31/18 03/31/18 18:59 06:59 18:59 Intake Total 300 / 300 250 / 250 Output Total 825 / 825 805 / 805 Balance -825 / -825 -505 / -505 250 / 250 Weight 71.2 kg Intake: IV 100 / 100 Magnesium Sulfate Inj 4 GM In 100 / 100 NS Inj 92 ML @ 25 mls/hr IV.SIG ONCE ONE Rx#:[id number] Oral 200 / 200 Tube Feeding 200 / 200 Water Bolus Amount 50 / 50 Output: Urine 825 / 825 805 / 805 Other: # Voids 1 Date of Last Bowel Movement 03/28/18 03/30/18 Narrative: GENERAL: Well-nourished, well-developed adult male in no obvious distress. SKIN: Warm and dry. EYES: PERRLA HEAD: Normocephalic. Bruising around both eyes. Multiple small lacerations/ abrasions with one larger laceration to right middle forehead -healing. CARDIOVASCULAR: Regular rate and rhythm. RESPIRATORY: No accessory muscle use. Clear to auscultation. Breath sounds equal bilaterally. GASTROINTESTINAL: Abdomen soft, non-tender, non-distended. Positive bowel sounds. PEG. MUSCULOSKELETAL: Extremities without clubbing, cyanosis, or edema. No obvious deformities. NEUROLOGICAL: Awake and alert. No obvious cranial nerve deficits. No facial droop. Motor grossly within normal limits. Slightly reduced rn documentation strength in right hand, however rt hand is noted to have had prior surgery and skin grafting. normal speech. Results - Labs CBC & Chem 7: 03/31/18 05:30 03/31/18 05:30 Laboratory Results - last 24 hr 03/30/18 03/30/18 03/31/18 16:53 21:05 05:30 WBC 8.0 RBC 2.73 L Hgb 10.3 L D Hct 28.9 L MCV 105.9 H MCH 37.9 H MCHC 35.8 RDW 16.3 Plt Count 185 MPV 6.3 L Neut % (Auto) 83.6 H Lymph % (Auto) 4.3 L Barron % (Auto) 9.9 H Eos % (Auto) 1.9 Baso % (Auto) 0.3 Neut # (Auto) 6.7 Lymph # (Auto) 0.3 L Barron # (Auto) 0.8 Eos # (Auto) 0.2 Baso # (Auto) 0.0 WBC Differential . Differential Comment Auto diff final PT INR Sodium Potassium Chloride Carbon Dioxide Anion Gap BUN Creatinine Estimated GFR POC Glucose 134 H 183 H Random Glucose Hemoglobin A1c Calcium Phosphorus Magnesium Total Bilirubin AST ALT Alkaline Phosphatase Troponin I Total Protein Albumin Triglycerides Cholesterol LDL Cholesterol, Calc HDL Cholesterol Cholesterol/HDL Ratio TSH Free T4 03/31/18 03/31/18 03/31/18 05:30 05:30 05:30 WBC RBC Hgb Hct MCV MCH MCHC RDW Plt Count MPV Neut % (Auto) Lymph % (Auto) Barron % (Auto) Eos % (Auto) Baso % (Auto) Neut # (Auto) Lymph # (Auto) Barron # (Auto) Eos # (Auto) Baso # (Auto) WBC Differential Differential Comment PT 10.9 INR 1.1 Sodium 136 Potassium 3.7 Chloride 100 Carbon Dioxide 29.2 Anion Gap 7 BUN 8 Creatinine 0.54 L Estimated GFR Greater than 89 POC Glucose Random Glucose 113 H Hemoglobin A1c 5.1 Calcium 8.1 L Phosphorus 3.0 Magnesium 1.7 Total Bilirubin 0.3 AST 10 L ALT 14 Alkaline Phosphatase 73 Troponin I Less than 0.02 L Total Protein 6.5 D Albumin 2.9 L D Triglycerides 102 Cholesterol 93 L LDL Cholesterol, Calc 33 HDL Cholesterol 39.7 L Cholesterol/HDL Ratio 2.34 TSH 0.825 Free T4 1.00 03/31/18 03/31/18 07:48 11:41 WBC RBC Hgb Hct MCV MCH MCHC RDW Plt Count MPV Neut % (Auto) Lymph % (Auto) Barron % (Auto) Eos % (Auto) Baso % (Auto) Neut # (Auto) Lymph # (Auto) Barron # (Auto) Eos # (Auto) Baso # (Auto) WBC Differential Differential Comment PT INR Sodium Potassium Chloride Carbon Dioxide Anion Gap BUN Creatinine Estimated GFR POC Glucose 118 H 264 H Random Glucose Hemoglobin A1c Calcium Phosphorus Magnesium Total Bilirubin AST ALT Alkaline Phosphatase Troponin I Total Protein Albumin Triglycerides Cholesterol LDL Cholesterol, Calc HDL Cholesterol Cholesterol/HDL Ratio TSH Free T4 Microbiology 03/29/18 15:20 Blood - Peripheral Aerobic Blood Culture - Preliminary No growth in 2 days 03/29/18 15:20 Blood - Peripheral Anaerobic Blood Culture - Preliminary No growth in 2 days 03/29/18 15:26 Blood - Peripheral Aerobic Blood Culture - Preliminary No growth in 2 days 03/29/18 15:26 Blood - Peripheral Anaerobic Blood Culture - Preliminary No growth in 2 days - Imaging ITS Impressions Head MRI 03/29/18 00:00 CONCLUSION: 1. Focal region of abnormal cortical signal without restricted diffusion or abnormal enhancement/mass in the left frontal high convexities at the vertex. This is most consistent with a subacute focal region of infarction. Chest X-Ray 03/29/18 15:04 CONCLUSION: Clear lungs. Head CT 03/29/18 15:57 CONCLUSION: 1. No acute hemorrhage or mass effect. 2. 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 . Neck MRA 03/30/18 00:00 CONCLUSION: Mild atherosclerotic plaque in the carotid bulbs bilaterally. However, there is a less than 50% stenosis. Percent stenosis is calculated using the diameter of the stenotic region over the diameter of the normal distal internal carotid artery Head MRA 03/30/18 09:35 CONCLUSION: No intracranial vascular abnormality is identified. Assessment and Plan - Assessment (1) Sepsis Code(s): A41.9 - Sepsis, unspecified organism Status: Suspected (2) Pancytopenia Code(s): D61.818 - Other pancytopenia Status: Acute (3) Tachycardia Code(s): R00.0 - Tachycardia, unspecified Status: Acute (4) Cancer of head and neck Code(s): C76.0 - Malignant neoplasm of head, face and neck Status: Acute (5) Acute hyperkalemia Code(s): E87.5 - Hyperkalemia Status: Acute (6) Acidosis, lactic Code(s): E87.2 - Acidosis Status: Acute - Plan Patient is a 62-year-old male who presents to the emergency room with a history of frequent falls, head injury and seizure just prior to arrival. 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 Ramirez), hypertension, diabetes and depression. 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 He was previous discharged from the hospital on 02/06/18 after being admitted for sepsis/pneumonia. Lactic acidosis; sepsis? dehydration? malignancy? T99.0; HR 133 (improved to 109 w/ bolus); BP WNL; RR 28; WBC WNL; neg chest xray -3 L NS bolus given in ED -Zosyn and vancomycin given ED Hyperkalemia -Mild; will recheck after bolus Frequent falls -PT eval ordered NEEDS 7 DAYS A WEEK Seizure -No previous history -MRI head and EEG ordered POSSIBLE CVA ON MRI EEG PENDING MRI WAS ABNORMAL- CONSULT PT AND OT AND ST START ASPIRIN -Start Keppra -Neuro consult placed; appreciate assistance Squamous cell carcinoma of the oropharynx -Had good response to recent treatment per oncology -Scheduled for PET/CT imaging May 2018 Status post PEG -Dietary consult; concern for malnutrition/dehydration WANTS PO LIQUIDS TOO Restart home medications for chronic conditions as indicated. DVT prophylaxis: SCDs (pending head imaging) Discharge planning: Likely home, may need social service follow-up. Patient lives alone. PT 7 DAYS A WEEK AM LABS Code Status: FULL CODE Discussed Condition With: RN AND PT AND CM Discharge Planning: PENDING NEUROLOGICAL CLEARANCE
--- NOTE | 2018-03-31 15:06 | MB ---
cc: Ketan Taveras MD DATE: 03/30/2018 HISTORY OF PRESENT ILLNESS: This is a 62-year-old right-handed man with a history of hypertension, pby-rjyddos-pusvnijry diabetes. He had throat cancer diagnosed in June, had chemo and radiation. He has had a PEG in. He has felt lightheaded when he stands up and he passed out 3 times in the last several days. One time when he was urinating standing up, he passed out just for a minute or two, woke up on the bathroom floor, hit his face. No new pains. No chest pain, palpitations, or headache. Then, the next day, he was in his bedroom standing up, getting dressed and passed out and then he was getting some things together yesterday and was standing up and passed out. Nobody witnessed any of them. No incontinence or tongue biting except when he was urinating he wet himself. No fecal incontinence, no tongue biting. He is not woken up and wet the bed or bit his tongue. No odd smells, tastes or caprice vu. He was standing up all these times and he does feel lightheaded when he stands up. REVIEW OF SYSTEMS: He denied any hypercholesterolemia, IN, CABG, stent, angioplasty, A-Fib, Coumadin, chest pain, palpitations, renal, hepatic, pulmonary disease, thyroid disease, lupus, ulcer, seizure or stroke. SOCIAL HISTORY: He is not a smoker, he has 6 beers a day. Has some anxiety, lives by himself. FAMILY HISTORY: Negative for cancer, seizure, stroke. MEDICATIONS AT HOME: He had stopped amlodipine about a month ago. He tells me he is on promethazine and metformin. PAST MEDICAL HISTORY: As above, squamous cell carcinoma of the oropharynx, hypertension, diabetes, some depression and anxiety. PHYSICAL EXAM: VITAL SIGNS: Sinus rhythm, sinus tachycardia, blood pressure 155/94. NECK: There were no carotid bruits. HEART: Regular rhythm. I did not detect a murmur. NEUROLOGIC: Pupils are equal. Visual hull are full. Extraocular movements intact without nystagmus. He has some abrasions about his face. Tongue was midline. He denies any neck pain or pain in the arms or his legs. Face has normal sensation. There is no drift. He has normal strength in upper and lower extremities bilaterally. DTRs are trace throughout. Toes downgoing bilaterally. No ankle clonus. Pinprick is intact throughout. He is not ataxic on [id number]. Speech is slow. He is not aphasic. No apparent distress. LABORATORY DATA: CBC showed minimal anemia, otherwise normal. UA is negative. Basic metabolic profile is normal. Calcium is 7.7, magnesium low at 1.3, lactic acid was 5.7. CPK was normal. Initial potassium was 5.6. His glucose was 200. LFTs minimally elevated. Albumin 3.5. ABG 7.43, 35, 85. LABS: He had an MRI of his brain done, showed a small stroke in the left frontal region. On review of the films, on the FLAIR image there is a fair amount of edema in the high left cortical region, some spotty diffusion change there. There may be a little bit of hemorrhage within that area, does not particularly enhance. Looking at the CAT scan, there does appear to be a small focus of hyperdensity up in that same region, probably a small hemorrhagic component to that region. IMPRESSION: It looks a bit atypical for a stroke. A met is certainly a consideration. I would recommend having his oncologist come by and see him. We will check, in case it is a stroke an echo and an MRA, a troponin, check his standing blood pressures because really what this presents as more than a seizure is orthostatic hypotension. He also has depression and anxiety, that is why he is drinking and I will try him on some Lexapro. We will check an EEG on him and a Holter monitor also, but I am not convinced that this is a subacute infarct. There appears to be slight hemorrhagic component to it also. Overall, however, this looks more like a syncopal episode than a seizure, at least what it sounds like clinically, although with that abnormality in the brain, a seizure could be considered. MD JOSE SharpeM/ct , 09:39 AM , 09:49 AM
--- NOTE | 2018-03-31 16:26 | P.PNNEU ---
Subjective Subjective Comments: sr no more spells Active Medications: Active Medications Hydrocodone Bitart/Acetaminophen ([place] 5/325) 1 tab PO Q4H PRN PRN Reason: pain 1 to 10 Last Admin: 03/31/18 12:38 Dose: 1 tab Al Hydroxide/Mg Hydroxide (Milk Of Magnesia Liq) 30 ml PO Q12H PRN PRN Reason: Mild Constipation Bisacodyl (Dulcolax Supp) 10 mg RECTAL DAILY PRN PRN Reason: SEVERE CONSITIPATION Clonidine HCl (Catapres) 0.1 mg PO Q6H PRN PRN Reason: HYPERTENSION Dextrose (D50w Vial) 50 ml IV.PUSH UNSCH PRN PRN Reason: PER HYPOGLYCEMIA PROTOCOL Escitalopram Oxalate (Lexapro) 10 mg PO DAILY NICOLE Glucagon (Glucagon Inj) 1 mg OTHER PRN PRN PRN Reason: for Hypoglycemia Protocol Insulin Aspart (Novolog Insulin Correctional Sugar Inj) 0 unit SQ [facility]; Protocol Last Admin: 03/31/18 12:38 Dose: 5 unit Lactulose (Lactulose Liq) 30 ml PO DAILY PRN PRN Reason: SEVERE CONSITIPATION Levetiracetam (Keppra Liq) 500 mg NG/OG BID NICOLE Metformin HCl (Glucophage) 1,000 mg PO BIDPC [facility] Last Admin: 03/31/18 08:36 Dose: Not Given Sennosides (Senokot) 17.2 mg PO Q12H PRN PRN Reason: Moderate Constipation Allergies/Adverse Reactions: Allergies Allergy/AdvReac Type Severity Reaction Status Date / Time No Known Allergies Allergy Verified 03/29/18 14:49 Physical Exam Vital signs: Vital Signs 03/30/18 20:00 03/30/18 20:30 03/31/18 00:00 Temperature 97.8 F 98.0 F Pulse Rate 102 H 110 H 94 H Respiratory Rate 19 18 Blood Pressure 135/78 141/86 H Pulse Oximetry 99 98 03/31/18 00:30 03/31/18 04:00 03/31/18 08:00 Temperature 98.0 F 97.7 F Pulse Rate 97 H 94 H 121 H Respiratory Rate 18 18 Blood Pressure 141/86 H 93/65 L Pulse Oximetry 98 100 03/31/18 12:00 Temperature 97.8 F Pulse Rate 125 H Respiratory Rate 17 Blood Pressure 96/68 L Pulse Oximetry 100 Intake & Output 03/30/18 03/31/18 03/31/18 18:59 06:59 18:59 Intake Total 300 / 300 250 / 250 Output Total 825 / 825 805 / 805 Balance -825 / -825 -505 / -505 250 / 250 Weight 71.2 kg Intake: IV 100 / 100 Magnesium Sulfate Inj 4 GM In 100 / 100 NS Inj 92 ML @ 25 mls/hr IV.SIG ONCE ONE Rx#:[id number] Oral 200 / 200 Tube Feeding 200 / 200 Water Bolus Amount 50 / 50 Output: Urine 825 / 825 805 / 805 Other: # Voids 1 Date of Last Bowel Movement 03/28/18 03/30/18 Narrative: awake alert moves all well Objective Laboratory Results - last 24 hr 03/30/18 03/30/18 03/31/18 16:53 21:05 05:30 WBC 8.0 RBC 2.73 L Hgb 10.3 L D Hct 28.9 L MCV 105.9 H MCH 37.9 H MCHC 35.8 RDW 16.3 Plt Count 185 MPV 6.3 L Neut % (Auto) 83.6 H Lymph % (Auto) 4.3 L Cook % (Auto) 9.9 H Eos % (Auto) 1.9 Baso % (Auto) 0.3 Neut # (Auto) 6.7 Lymph # (Auto) 0.3 L Cook # (Auto) 0.8 Eos # (Auto) 0.2 Baso # (Auto) 0.0 WBC Differential . Differential Comment Auto diff final PT INR Sodium Potassium Chloride Carbon Dioxide Anion Gap BUN Creatinine Estimated GFR POC Glucose 134 H 183 H Random Glucose Hemoglobin A1c Calcium Phosphorus Magnesium Total Bilirubin AST ALT Alkaline Phosphatase Troponin I Total Protein Albumin Triglycerides Cholesterol LDL Cholesterol, Calc HDL Cholesterol Cholesterol/HDL Ratio TSH Free T4 03/31/18 03/31/18 03/31/18 05:30 05:30 05:30 WBC RBC Hgb Hct MCV MCH MCHC RDW Plt Count MPV Neut % (Auto) Lymph % (Auto) Cook % (Auto) Eos % (Auto) Baso % (Auto) Neut # (Auto) Lymph # (Auto) Cook # (Auto) Eos # (Auto) Baso # (Auto) WBC Differential Differential Comment PT 10.9 INR 1.1 Sodium 136 Potassium 3.7 Chloride 100 Carbon Dioxide 29.2 Anion Gap 7 BUN 8 Creatinine 0.54 L Estimated GFR Greater than 89 POC Glucose Random Glucose 113 H Hemoglobin A1c 5.1 Calcium 8.1 L Phosphorus 3.0 Magnesium 1.7 Total Bilirubin 0.3 AST 10 L ALT 14 Alkaline Phosphatase 73 Troponin I Less than 0.02 L Total Protein 6.5 D Albumin 2.9 L D Triglycerides 102 Cholesterol 93 L LDL Cholesterol, Calc 33 HDL Cholesterol 39.7 L Cholesterol/HDL Ratio 2.34 TSH 0.825 Free T4 1.00 03/31/18 03/31/18 07:48 11:41 WBC RBC Hgb Hct MCV MCH MCHC RDW Plt Count MPV Neut % (Auto) Lymph % (Auto) Cook % (Auto) Eos % (Auto) Baso % (Auto) Neut # (Auto) Lymph # (Auto) Cook # (Auto) Eos # (Auto) Baso # (Auto) WBC Differential Differential Comment PT INR Sodium Potassium Chloride Carbon Dioxide Anion Gap BUN Creatinine Estimated GFR POC Glucose 118 H 264 H Random Glucose Hemoglobin A1c Calcium Phosphorus Magnesium Total Bilirubin AST ALT Alkaline Phosphatase Troponin I Total Protein Albumin Triglycerides Cholesterol LDL Cholesterol, Calc HDL Cholesterol Cholesterol/HDL Ratio TSH Free T4 Microbiology 03/29/18 15:20 Aerobic Blood Culture - Preliminary Blood - Peripheral No growth in 2 days Anaerobic Blood Culture - Preliminary No growth in 2 days 03/29/18 15:26 Aerobic Blood Culture - Preliminary Blood - Peripheral No growth in 2 days Anaerobic Blood Culture - Preliminary No growth in 2 days Review/Management - Review/Management Plan: imp echo 40% ef mra negx2 eeg nl lexapro started keppra inc to 500 bid bp low 93/ standing holter pend I DW ONC 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
[2018-03-31] MEDS: Escitalopram 10 MG Tablet PO SCH (16:50)
--- NOTE | 2018-03-31 17:17 | MG ---
cc: Ketan Taveras MD FINDINGS: Some abnormality high left frontal head region. Multiple syncopal spells. A 10 Hz, 60 microvolt symmetric posterior rhythm is seen. I do not note any left frontal abnormalities. No epileptiform or seizure activity is noted. Hyperventilation is not performed. Photic stimulation is performed without significant posterior driving. IMPRESSION: Normal awake EEG. No evidence for a focal or diffuse abnormality. MD BARNEY Sharpe/becky , 03:27 PM , 03:31 PM
--- NOTE | 2018-03-31 18:09 | P.PNONC ---
Subjective Interval history: Pt not seen on rounds today. Later in the afternoon, Dr. Taveras who was consulted for ?CVA called and discussed case with me. The possibility of an isolated brain mets is raised as this does not appear to be a stroke per Dr. Taveras. Hence I ordered emipiric steroid therapy for ? brain mets. Further w/ u with SPECT / PET scan etc per Dr. Ramirez. Will discuss case with him in AM. Objective Vital Signs/Intake & Output: Vital Signs 03/30/18 20:00 03/30/18 20:30 03/31/18 00:00 Temperature 97.8 F 98.0 F Pulse Rate 102 H 110 H 94 H Respiratory Rate 19 18 Blood Pressure 135/78 141/86 H Pulse Oximetry 99 98 03/31/18 00:30 03/31/18 04:00 03/31/18 08:00 Temperature 98.0 F 97.7 F Pulse Rate 97 H 116 H 121 H Respiratory Rate 18 18 Blood Pressure 110/72 93/65 L Pulse Oximetry 99 100 03/31/18 12:00 03/31/18 16:00 Temperature 97.8 F 98.0 F Pulse Rate 125 H 93 H Respiratory Rate 17 18 Blood Pressure 96/68 L 116/75 Pulse Oximetry 100 100 Intake & Output 03/30/18 03/31/18 03/31/18 18:59 06:59 18:59 Intake Total 300 / 300 790 / 790 Output Total 825 / 825 805 / 805 Balance -825 / -825 -505 / -505 790 / 790 Weight 71.2 kg Intake: IV 100 / 100 Magnesium Sulfate Inj 4 GM In 100 / 100 NS Inj 92 ML @ 25 mls/hr IV.SIG ONCE ONE Rx#:[id number] Oral 200 / 200 Tube Feeding 640 / 640 Water Bolus Amount 150 / 150 Output: Urine 825 / 825 805 / 805 Other: # Voids 1 Date of Last Bowel Movement 03/28/18 03/30/18 Result Diagrams: 03/31/18 05:30 03/31/18 05:30 Laboratory Results: Laboratory Results - last 24 hr 03/30/18 03/31/18 03/31/18 21:05 05:30 05:30 WBC 8.0 RBC 2.73 L Hgb 10.3 L D Hct 28.9 L MCV 105.9 H MCH 37.9 H MCHC 35.8 RDW 16.3 Plt Count 185 MPV 6.3 L Neut % (Auto) 83.6 H Lymph % (Auto) 4.3 L Frio % (Auto) 9.9 H Eos % (Auto) 1.9 Baso % (Auto) 0.3 Neut # (Auto) 6.7 Lymph # (Auto) 0.3 L Frio # (Auto) 0.8 Eos # (Auto) 0.2 Baso # (Auto) 0.0 WBC Differential . Differential Comment Auto diff final PT 10.9 INR 1.1 Sodium Potassium Chloride Carbon Dioxide Anion Gap BUN Creatinine Estimated GFR POC Glucose 183 H Random Glucose Hemoglobin A1c Calcium Phosphorus Magnesium Total Bilirubin AST ALT Alkaline Phosphatase Troponin I Total Protein Albumin Triglycerides Cholesterol LDL Cholesterol, Calc HDL Cholesterol Cholesterol/HDL Ratio TSH Free T4 03/31/18 03/31/18 03/31/18 05:30 05:30 07:48 WBC RBC Hgb Hct MCV MCH MCHC RDW Plt Count MPV Neut % (Auto) Lymph % (Auto) Frio % (Auto) Eos % (Auto) Baso % (Auto) Neut # (Auto) Lymph # (Auto) Frio # (Auto) Eos # (Auto) Baso # (Auto) WBC Differential Differential Comment PT INR Sodium 136 Potassium 3.7 Chloride 100 Carbon Dioxide 29.2 Anion Gap 7 BUN 8 Creatinine 0.54 L Estimated GFR Greater than 89 POC Glucose 118 H Random Glucose 113 H Hemoglobin A1c 5.1 Calcium 8.1 L Phosphorus 3.0 Magnesium 1.7 Total Bilirubin 0.3 AST 10 L ALT 14 Alkaline Phosphatase 73 Troponin I Less than 0.02 L Total Protein 6.5 D Albumin 2.9 L D Triglycerides 102 Cholesterol 93 L LDL Cholesterol, Calc 33 HDL Cholesterol 39.7 L Cholesterol/HDL Ratio 2.34 TSH 0.825 Free T4 1.00 03/31/18 03/31/18 11:41 16:49 WBC RBC Hgb Hct MCV MCH MCHC RDW Plt Count MPV Neut % (Auto) Lymph % (Auto) Frio % (Auto) Eos % (Auto) Baso % (Auto) Neut # (Auto) Lymph # (Auto) Frio # (Auto) Eos # (Auto) Baso # (Auto) WBC Differential Differential Comment PT INR Sodium Potassium Chloride Carbon Dioxide Anion Gap BUN Creatinine Estimated GFR POC Glucose 264 H 198 H Random Glucose Hemoglobin A1c Calcium Phosphorus Magnesium Total Bilirubin AST ALT Alkaline Phosphatase Troponin I Total Protein Albumin Triglycerides Cholesterol LDL Cholesterol, Calc HDL Cholesterol Cholesterol/HDL Ratio TSH Free T4 Culture Results: Microbiology 03/29/18 15:20 Aerobic Blood Culture - Preliminary Blood - Peripheral No growth in 2 days Anaerobic Blood Culture - Preliminary No growth in 2 days 03/29/18 15:26 Aerobic Blood Culture - Preliminary Blood - Peripheral No growth in 2 days Anaerobic Blood Culture - Preliminary No growth in 2 days Medications: Active Medications Generic Name Dose Route Start Last Admin Trade Name Freq PRN Reason Stop Dose Admin Hydrocodone Bitart/Acetaminophen 1 tab 03/29/18 23:49 03/31/18 16:50 [place] 5/325 PO 1 tab Q4H PRN Administration pain 1 to 10 Escitalopram Oxalate 10 mg 03/31/18 16:30 03/31/18 16:50 Lexapro PO 10 mg DAILY NICOLE Administration Insulin Aspart 0 unit 03/29/18 17:00 03/31/18 16:58 Novolog Insulin Correctional Sugar Inj SQ 1 unit ACHS [facility] Administration Protocol Metformin HCl 1,000 mg 03/29/18 18:00 03/31/18 17:01 Glucophage PO Not Given BIDPC [facility] Objective Remarks: GENERAL: Well-nourished, well-developed patient. SKIN: Warm and dry. HEAD: Normocephalic. EYES: No scleral icterus. No injection or drainage. NECK: Supple, trachea midline. No JVD or lymphadenopathy. LYMPHATIC: No adenopathy. CARDIOVASCULAR: Regular rate and rhythm without murmurs. RESPIRATORY: Breath sounds equal bilaterally. No accessory muscle use. GASTROINTESTINAL: Abdomen soft, non-tender, nondistended. EXTREMITIES: No cyanosis, or edema. MUSCULOSKELETAL: Adequate muscle tone. NEUROLOGICAL: No obvious focal deficit. Awake, alert, and oriented x3. PSYCHIATRIC: Appropriate mood and affect; insight and judgment normal.
[2018-04-01 07:04] LABS: Baso % (Auto) 0.2 % (0.0-2.0); Hematocrit 31.5 % (39.0-51.0); Hemoglobin 10.7 gm/dL (13.0-17.0); Lymph # (Auto) 0.4 th/mm3 (1.0-4.8); Lymph % (Auto) 3.4 % (9.0-44.0); Mean Corpuscular Hemoglobin 36.8 pg (27.0-34.0); Mean Corpuscular Volume 108.3 fL (80.0-100.0); Mono # (Auto) 0.4 th/mm3 (0.0-0.9); Mono % (Auto) 3.5 % (0.0-8.0); Neut # (Auto) 10.1 th/mm3 (1.8-7.7); Neut % (Auto) 92.9 % (16.0-70.0); Platelet Count 223 th/mm3 (150-450); Red Blood Count 2.91 mil/mm3 (4.50-5.90); Red Cell Distribution Width 15.8 % (11.6-17.2); White Blood Count 10.9 th/mm3 (4.0-11.0)
--- NOTE | 2018-04-01 07:22 | P.PNNEU ---
Subjective Active Medications: Active Medications Hydrocodone Bitart/Acetaminophen ([place] 5/325) 1 tab PO Q4H PRN PRN Reason: pain 1 to 10 Last Admin: 04/01/18 06:12 Dose: 1 tab Al Hydroxide/Mg Hydroxide (Milk Of Magnesia Liq) 30 ml PO Q12H PRN PRN Reason: Mild Constipation Bisacodyl (Dulcolax Supp) 10 mg RECTAL DAILY PRN PRN Reason: SEVERE CONSITIPATION Clonidine HCl (Catapres) 0.1 mg PO Q6H PRN PRN Reason: HYPERTENSION Dexamethasone (Decadron) 4 mg PO QID [facility] Last Admin: 03/31/18 20:53 Dose: 4 mg Dextrose (D50w Vial) 50 ml IV.PUSH UNSCH PRN PRN Reason: PER HYPOGLYCEMIA PROTOCOL Escitalopram Oxalate (Lexapro) 10 mg PO DAILY [facility] Last Admin: 03/31/18 16:50 Dose: 10 mg Glucagon (Glucagon Inj) 1 mg OTHER PRN PRN PRN Reason: for Hypoglycemia Protocol Insulin Aspart (Novolog Insulin Correctional Sugar Inj) 0 unit SQ [facility]; Protocol Last Admin: 03/31/18 20:59 Dose: 7 unit Lactulose (Lactulose Liq) 30 ml PO DAILY PRN PRN Reason: SEVERE CONSITIPATION Levetiracetam (Keppra Liq) 500 mg NG/OG BID [facility] Last Admin: 03/31/18 20:53 Dose: 500 mg [facility] ([facility]) [facility] Last Admin: 03/31/18 17:01 Dose: Not Given Sennosides (Senokot) 17.2 mg PO Q12H PRN PRN Reason: Moderate Constipation Allergies/Adverse Reactions: Allergies Allergy/AdvReac Type Severity Reaction Status Date / Time No Known Allergies Allergy Verified 03/29/18 14:49 Physical Exam Vital signs: Vital Signs 03/31/18 08:00 03/31/18 12:00 03/31/18 16:00 Temperature 97.7 F 97.8 F 98.0 F Pulse Rate 121 H 125 H 93 H Respiratory Rate 18 17 18 Blood Pressure 93/65 L 96/68 L 116/75 Pulse Oximetry 100 100 100 03/31/18 20:00 04/01/18 00:00 04/01/18 04:00 Temperature 97.9 F 97.7 F 98.0 F Pulse Rate 100 H 116 H 117 H Respiratory Rate 18 18 16 Blood Pressure 116/74 123/83 132/81 Pulse Oximetry 99 98 96 Intake & Output 03/31/18 04/01/18 04/01/18 18:59 06:59 18:59 Intake Total 1440 / 1440 580 / 580 Balance 1440 / 1440 580 / 580 Weight 71 kg Intake: Oral 650 / 650 580 / 580 Tube Feeding 640 / 640 Water Bolus Amount 150 / 150 Other: # Voids 5 4 Date of Last Bowel Movement 03/30/18 03/30/18 # Bowel Movements 1 Narrative: awake alert moves all well still Objective Laboratory Results - last 24 hr 03/31/18 03/31/18 03/31/18 05:30 07:48 11:41 WBC RBC Hgb Hct MCV MCH MCHC RDW Plt Count MPV Neut % (Auto) Lymph % (Auto) [place] % (Auto) Eos % (Auto) Baso % (Auto) Neut # (Auto) Lymph # (Auto) [place] # (Auto) Eos # (Auto) Baso # (Auto) WBC Differential Differential Comment POC Glucose 118 H 264 H Hemoglobin A1c 5.1 03/31/18 03/31/18 04/01/18 16:49 20:59 06:00 WBC 10.9 RBC 2.91 L Hgb 10.7 L Hct 31.5 L MCV 108.3 H MCH 36.8 H MCHC 34.0 RDW 15.8 Plt Count 223 MPV 7.0 Neut % (Auto) 92.9 H Lymph % (Auto) 3.4 L [place] % (Auto) 3.5 Eos % (Auto) 0.0 Baso % (Auto) 0.2 Neut # (Auto) 10.1 H Lymph # (Auto) 0.4 L [place] # (Auto) 0.4 Eos # (Auto) 0.0 Baso # (Auto) 0.0 WBC Differential . 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
[2018-04-01 07:34] LABS: Anion Gap 8 meq/L (5-15); Aspartate Aminotransferase 10 U/L (15-37); Blood Urea Nitrogen 10 mg/dL (7-18); Calcium 8.6 mg/dL (8.5-10.1); Carbon Dioxide 26.9 meq/L (21.0-32.0); Chloride 98 meq/L (98-107); Glomerular Filtration Rate Greater Than 89 mL/min (>89); Glucose,Random 182 mg/dL (74-106); Magnesium 1.6 mg/dL (1.5-2.5); Potassium 4.5 meq/L (3.5-5.1); Sodium 133 meq/L (136-145)
[2018-04-01 07:38] LABS: Alanine Aminotransferase 13 U/L (12-78); Alkaline Phosphatase 74 U/L (45-117); Phosphorus 3.4 mg/dL (2.5-4.9)
--- NOTE | 2018-04-01 08:14 | P.PNONC ---
Subjective Interval history: Patient seen and examined, vital signs, labs, medications and imaging studies reviewed. Additionally MRI of the brain and CT scans of the brain also reviewed. Subjectively; this morning patient reports feeling well, he denies headaches. He tells me he was standing up to urinate after having drank 1 or 2 beers and then passed out. He tells me he had his forehead hard on the floor and lacerated the forehead. He also hurt his nose and had significant nosebleeds. 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 Objective Vital Signs/Intake & Output: Vital Signs 03/31/18 12:00 03/31/18 16:00 03/31/18 20:00 Temperature 97.8 F 98.0 F 97.9 F Pulse Rate 125 H 93 H 100 H Respiratory Rate 17 18 18 Blood Pressure 96/68 L 116/75 116/74 Pulse Oximetry 100 100 99 04/01/18 00:00 04/01/18 04:00 Temperature 97.7 F 98.0 F Pulse Rate 116 H 117 H Respiratory Rate 18 16 Blood Pressure 123/83 132/81 Pulse Oximetry 98 96 Intake & Output 03/31/18 04/01/18 04/01/18 18:59 06:59 18:59 Intake Total 1440 / 1440 580 / 580 Balance 1440 / 1440 580 / 580 Weight 71 kg Intake: Oral 650 / 650 580 / 580 Tube Feeding 640 / 640 Water Bolus Amount 150 / 150 Other: # Voids 5 4 Date of Last Bowel Movement 03/30/18 03/30/18 # Bowel Movements 1 Result Diagrams: 04/01/18 06:00 04/01/18 06:00 Laboratory Results: Laboratory Results - last 24 hr 03/31/18 03/31/18 03/31/18 05:30 11:41 16:49 WBC RBC Hgb Hct MCV MCH MCHC RDW Plt Count MPV Neut % (Auto) Lymph % (Auto) [place] % (Auto) Eos % (Auto) Baso % (Auto) Neut # (Auto) Lymph # (Auto) [place] # (Auto) Eos # (Auto) Baso # (Auto) WBC Differential Differential Comment Sodium Potassium Chloride Carbon Dioxide Anion Gap BUN Creatinine Estimated GFR POC Glucose 264 H 198 H Random Glucose Hemoglobin A1c 5.1 Calcium Phosphorus Magnesium Total Bilirubin AST ALT Alkaline Phosphatase Total Protein Albumin 03/31/18 04/01/18 04/01/18 20:59 06:00 06:00 WBC 10.9 RBC 2.91 L Hgb 10.7 L Hct 31.5 L MCV 108.3 H MCH 36.8 H MCHC 34.0 RDW 15.8 Plt Count 223 MPV 7.0 Neut % (Auto) 92.9 H Lymph % (Auto) 3.4 L [place] % (Auto) 3.5 Eos % (Auto) 0.0 Baso % (Auto) 0.2 Neut # (Auto) 10.1 H Lymph # (Auto) 0.4 L [place] # (Auto) 0.4 Eos # (Auto) 0.0 Baso # (Auto) 0.0 WBC Differential . Differential Comment Auto diff final Sodium 133 L Potassium 4.5 D Chloride 98 Carbon Dioxide 26.9 Anion Gap 8 BUN 10 Creatinine 0.61 Estimated GFR Greater than 89 POC Glucose 320 H Random Glucose 182 H Hemoglobin A1c Calcium 8.6 Phosphorus 3.4 Magnesium 1.6 Total Bilirubin 0.3 AST 10 L ALT 13 Alkaline Phosphatase 74 Total Protein 7.0 Albumin 3.0 L Culture Results: Microbiology 03/29/18 15:20 Aerobic Blood Culture - Preliminary Blood - Peripheral No growth in 2 days Anaerobic Blood Culture - Preliminary No growth in 2 days 03/29/18 15:26 Aerobic Blood Culture - Preliminary Blood - Peripheral No growth in 2 days Anaerobic Blood Culture - Preliminary No growth in 2 days Medications: Active Medications Generic Name Dose Route Start Last Admin Trade Name Freq PRN Reason Stop Dose Admin Hydrocodone Bitart/Acetaminophen 1 tab 03/29/18 23:49 04/01/18 06:12 [place] 5/325 PO 1 tab Q4H PRN Administration pain 1 to 10 Dexamethasone 4 mg 03/31/18 18:00 03/31/18 20:53 Decadron PO 4 mg QID NICOLE Administration Escitalopram Oxalate 10 mg 03/31/18 16:30 03/31/18 16:50 Lexapro PO 10 mg DAILY NICOLE Administration Insulin Aspart 0 unit 03/29/18 17:00 03/31/18 20:59 Novolog Insulin Correctional Sugar Inj SQ 7 unit ACHS NICOLE Administration Protocol Levetiracetam 500 mg 03/31/18 21:00 03/31/18 20:53 Keppra Liq NG/OG 500 mg BID NICOLE Administration Metformin HCl 1,000 mg 03/29/18 18:00 03/31/18 17:01 [facility] Objective Remarks: GENERAL: Middle-aged/elderly male, sitting up in bed, he has a vertical scabbed over laceration involving the right side of his forehead. SKIN: Bruising underneath bilateral eyes. HEAD: Trauma as described above, he has injury and skin laceration of the nose as well. EYES: Subconjunctival hemorrhage involving the left eye. NECK: Postradiation changes involving the neck. The large mass which exceeded 12 cm involving the right side of his neck is no longer palpable. LYMPHATIC: No pathologically enlarged adenopathy. CARDIOVASCULAR: Regular rate and rhythm without murmurs. RESPIRATORY: Breath sounds equal bilaterally. No accessory muscle use. GASTROINTESTINAL: PEG tube in place, no palpable organ enlargement abdomen soft , non-tender, nondistended. EXTREMITIES: Skin graft and muscle graft on the right hand and forearm. No cyanosis, or edema. MUSCULOSKELETAL: Generally decreased muscle mass and tone. NEUROLOGICAL: No obvious focal deficit. Awake, alert, and oriented x3. PSYCHIATRIC: Appropriate mood and affect; insight and judgment normal. Assessment/Plan - Plan Mr. 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 The patient had a very large primary involving the right oropharynx/tonsillar pillar with pathologically enlarged right-sided cervical lymphadenopathy. The metastatic lymph node measured in excess of 12 cm at the time of diagnosis, the lymph node was fixed and quite painful. He was initially treated with neoadjuvant systemic chemotherapy consisting of carboplatin and Taxol while he awaited evaluation by oral surgery for tooth extraction. The patient subsequently was initiated on definitive dose chemoradiotherapy with full dose cisplatin. Treatment was completed about a month ago. He had been recovering well from treatment and had an excellent clinical response to therapy with complete resolution on clinical examination of the easily visible oropharyngeal tumor as well as resolution of the pathologically enlarged right-sided cervical lymphadenopathy. He now presents to the hospital after having fallen, the patient reports having had recurrent falls at home. He also reports drinking heavily, he unfortunately continues to drink heavily despite having recently completed treatment for an aggressive oropharyngeal squamous cell carcinoma which is also likely related to his alcoholism. Imaging studies of the brain indicate an area of abnormality which is not classical for a stroke, differential diagnosis also includes traumatic injury versus an atypical metastatic deposit. The patient has been evaluated by neurology. Recommendations: 1. Oropharyngeal Squamous cell carcinoma (locally advanced) without previously noted metastases: Await review of brain imaging with neuroradiology. From a disease response standpoint for his primary tumor following combined modality chemoradiotherapy he has had an excellent response. This patient literally had a fist-sized mass on the right side of his neck which is now completely resolved. He also had a very obvious malignant mass involving the right side of the oropharynx which is also completely resolved on clinical examination. I would advise continued cardiac and neurologic evaluation.
[2018-04-01 08:21] VITALS: RESP 17
[2018-04-01] MEDS: Insulin NovoLOG Aspart Correctional Sugar Inj SQ SCH ×3 (08:28→17:21)
[2018-04-01] MEDS: Escitalopram 10 MG Tablet PO SCH (08:30)
[2018-04-01 12:53] VITALS: PULSE 85
[2018-04-01 16:52] VITALS: BP 143/82; TEMP 97.4; O2SAT 98
--- NOTE | 2018-04-01 16:54 | P.PNIM ---
Subjective Interval history: Chief Complaint: Seizure History of Present Illness: Patient is a 62-year-old male who presents to the emergency room with a history of frequent falls, head injury and seizure just prior to arrival. 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 Ramirez), hypertension, diabetes and depression. 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 Apparently he has had several falls after which he refused to come to the hospital. After his most recent one he experienced a seizure which caused him to decide to come in. He has no history of seizures. At admit this visit he is noted to have lactic acidosis, per Dr. Devine ED physician he was seen in the emergency room on 03/23/18 for similar. At that time he was rehydrated after which symptoms resolved and he returned home. Prior to that he was discharged from the hospital on 02/06/18 after being admitted for sepsis/pneumonia. Patient is seen in room. No family is at bedside. He appears to be a somewhat unreliable historian; he is oriented to self time and location but recall of recent events is sometimes unclear. He tells me that he has had 3 falls in the last month. Yesterday he fell while trying to go to the bathroom. He did experience incontinence of urine after that episode. This morning he fell in his living room and when he came to he noticed that his hands were shaking and he could not make them stop. Experienced some dizziness prior to all falls. No changes in vision. No headache. No nausea or vomiting. No unwitnessed falls or seizures. 03-30 MRI OF HEAD IS POSITIVE FOR SUBACUTE INFARCT ECHO IS PENDING CAROTIDS ARE STABLE NEEDS ASPIRIN DW RN AND PT AND CM STATES HAS SOME PO INTAKE AND DOES TUBE FEEDS 03-31 WAS SEEN BY [facility]- NOTE IS NOT AVAILABLE ?CVA/INFARCT PER MRI CAROTIDS STABLE ECHO 40-45% HAS SEEN PT AND OT EEG DONE RESULTS PENDING NEEDS PT 7 DAYS A WEEK 04-01 DW RADIOLOGY THEY FEEL THIS IS A STROKE NOT A MASS WILL START ASPIRIN 81MG PO DAILY HOPEFULLY DC TO HOME DW RN AND PT AND CM EEG IS NORMAL Physical Exam Vital signs: Vital Signs 03/31/18 20:00 04/01/18 00:00 04/01/18 04:00 Temperature 97.9 F 97.7 F 98.0 F Pulse Rate 100 H 116 H 117 H Respiratory Rate 18 18 16 Blood Pressure 116/74 123/83 132/81 Pulse Oximetry 99 98 96 04/01/18 08:00 04/01/18 12:00 Temperature 98.0 F 97.5 F L Pulse Rate 88 85 Respiratory Rate 17 17 Blood Pressure 130/75 138/76 Pulse Oximetry 98 99 Intake & Output 03/31/18 04/01/18 04/01/18 18:59 06:59 18:59 Intake Total 1440 / 1440 580 / 580 Balance 1440 / 1440 580 / 580 Weight 71 kg Intake: Oral 650 / 650 580 / 580 Tube Feeding 640 / 640 Water Bolus Amount 150 / 150 Other: # Voids 5 4 Date of Last Bowel Movement 03/30/18 03/30/18 # Bowel Movements 1 Narrative: GENERAL: Well-nourished, well-developed adult male in no obvious distress. SKIN: Warm and dry. EYES: PERRLA HEAD: Normocephalic. Bruising around both eyes. Multiple small lacerations/ abrasions with one larger laceration to right middle forehead -healing. CARDIOVASCULAR: Regular rate and rhythm. RESPIRATORY: No accessory muscle use. Clear to auscultation. Breath sounds equal bilaterally. GASTROINTESTINAL: Abdomen soft, non-tender, non-distended. Positive bowel sounds. PEG. MUSCULOSKELETAL: Extremities without clubbing, cyanosis, or edema. No obvious deformities. NEUROLOGICAL: Awake and alert. No obvious cranial nerve deficits. No facial droop. Motor grossly within normal limits. Slightly reduced senior it auditor strength in right hand, however rt hand is noted to have had prior surgery and skin grafting. normal speech. Results - Labs CBC & Chem 7: 04/01/18 06:00 04/01/18 06:00 Laboratory Results - last 24 hr 03/31/18 03/31/18 04/01/18 16:49 20:59 06:00 WBC 10.9 RBC 2.91 L Hgb 10.7 L Hct 31.5 L MCV 108.3 H MCH 36.8 H MCHC 34.0 RDW 15.8 Plt Count 223 MPV 7.0 Neut % (Auto) 92.9 H Lymph % (Auto) 3.4 L [place] % (Auto) 3.5 Eos % (Auto) 0.0 Baso % (Auto) 0.2 Neut # (Auto) 10.1 H Lymph # (Auto) 0.4 L [place] # (Auto) 0.4 Eos # (Auto) 0.0 Baso # (Auto) 0.0 WBC Differential . Differential Comment Auto diff final Sodium Potassium Chloride Carbon Dioxide Anion Gap BUN Creatinine Estimated GFR POC Glucose 198 H 320 H Random Glucose Calcium Phosphorus Magnesium Total Bilirubin AST ALT Alkaline Phosphatase Total Protein Albumin 04/01/18 04/01/18 04/01/18 06:00 08:13 11:17 WBC RBC Hgb Hct MCV MCH MCHC RDW Plt Count MPV Neut % (Auto) Lymph % (Auto) [place] % (Auto) Eos % (Auto) Baso % (Auto) Neut # (Auto) Lymph # (Auto) [place] # (Auto) Eos # (Auto) Baso # (Auto) WBC Differential Differential Comment Sodium 133 L Potassium 4.5 D Chloride 98 Carbon Dioxide 26.9 Anion Gap 8 BUN 10 Creatinine 0.61 Estimated GFR Greater than 89 POC Glucose 192 H 272 H Random Glucose 182 H Calcium 8.6 Phosphorus 3.4 Magnesium 1.6 Total Bilirubin 0.3 AST 10 L ALT 13 Alkaline Phosphatase 74 Total Protein 7.0 Albumin 3.0 L Microbiology 03/29/18 15:20 Blood - Peripheral Aerobic Blood Culture - Preliminary No growth in 3 days 03/29/18 15:20 Blood - Peripheral Anaerobic Blood Culture - Preliminary No growth in 3 days 03/29/18 15:26 Blood - Peripheral Aerobic Blood Culture - Preliminary No growth in 3 days 03/29/18 15:26 Blood - Peripheral Anaerobic Blood Culture - Preliminary No growth in 3 days - Imaging ITS Impressions Head MRI 03/29/18 00:00 CONCLUSION: 1. Focal region of abnormal cortical signal without restricted diffusion or abnormal enhancement/mass in the left frontal high convexities at the vertex. This is most consistent with a subacute focal region of infarction. Chest X-Ray 03/29/18 15:04 CONCLUSION: Clear lungs. Head CT 03/29/18 15:57 CONCLUSION: 1. No acute hemorrhage or mass effect. 2. 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 . Neck MRA 03/30/18 00:00 CONCLUSION: Mild atherosclerotic plaque in the carotid bulbs bilaterally. However, there is a less than 50% stenosis. Percent stenosis is calculated using the diameter of the stenotic region over the diameter of the normal distal internal carotid artery Head MRA 03/30/18 09:35 CONCLUSION: No intracranial vascular abnormality is identified. - Procedures NONE Assessment and Plan - Assessment (1) Sepsis Code(s): A41.9 - Sepsis, unspecified organism Status: Suspected (2) Pancytopenia Code(s): D61.818 - Other pancytopenia Status: Acute (3) Tachycardia Code(s): R00.0 - Tachycardia, unspecified Status: Acute (4) Cancer of head and neck Code(s): C76.0 - Malignant neoplasm of head, face and neck Status: Acute (5) Acute hyperkalemia Code(s): E87.5 - Hyperkalemia Status: Acute (6) Acidosis, lactic Code(s): E87.2 - Acidosis Status: Acute - Plan Patient is a 62-year-old male who presents to the emergency room with a history of frequent falls, head injury and seizure just prior to arrival. 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 Ramirez), hypertension, diabetes and depression. 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 He was previous discharged from the hospital on 02/06/18 after being admitted for sepsis/pneumonia. Lactic acidosis; sepsis? dehydration? malignancy? T99.0; HR 133 (improved to 109 w/ bolus); BP WNL; RR 28; WBC WNL; neg chest xray -3 L NS bolus given in ED -Zosyn and vancomycin given ED Hyperkalemia -Mild; will recheck after bolus Frequent falls -PT eval ordered NEEDS 7 DAYS A WEEK Seizure -No previous history -MRI head and EEG ordered POSSIBLE CVA ON MRI EEG IS NORMAL MRI WAS ABNORMAL- CONSULT PT AND OT AND ST START ASPIRIN -Start Keppra -Neuro consult placed; appreciate assistance CONTINUE ASPIRIN 81 MG PO DAILY- SUSPECTED CVA PER RADIOLOGY Squamous cell carcinoma of the oropharynx -Had good response to recent treatment per oncology -Scheduled for PET/CT imaging May 2018 Status post PEG -Dietary consult; concern for malnutrition/dehydration WANTS PO LIQUIDS TOO Restart home medications for chronic conditions as indicated. DVT prophylaxis: SCDs (pending head imaging) Discharge planning: Likely home, may need social service follow-up. Patient lives alone. PT 7 DAYS A WEEK DC TO HOME Code Status: FULL CODE Discussed Condition With: RN AND PT AND CM Discharge Planning: DC TO HOME
--- NOTE | 2018-04-01 17:11 | P.DS ---
Date of admission: 03/31/18 14:29 Primary care physician: UNKNOWN Attending physician on discharge: Nithin Palencia Anticipated date of discharge: 04/01/18 Brief History from admission: Patient is a 62-year-old male who presents to the emergency room with a history of frequent falls, head injury and seizure just prior to arrival. 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 Ramirez), hypertension, diabetes and depression. 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 Apparently he has had several falls after which he refused to come to the hospital. After his most recent one he experienced a seizure which caused him to decide to come in. He has no history of seizures. At admit this visit he is noted to have lactic acidosis, per Dr. Devine ED physician he was seen in the emergency room on 03/23/18 for similar. At that time he was rehydrated after which symptoms resolved and he returned home. Prior to that he was discharged from the hospital on 02/06/18 after being admitted for sepsis/pneumonia. Patient is seen in room. No family is at bedside. He appears to be a somewhat unreliable historian; he is oriented to self time and location but recall of recent events is sometimes unclear. He tells me that he has had 3 falls in the last month. Yesterday he fell while trying to go to the bathroom. He did experience incontinence of urine after that episode. This morning he fell in his living room and when he came to he noticed that his hands were shaking and he could not make them stop. Experienced some dizziness prior to all falls. No changes in vision. No headache. No nausea or vomiting. No unwitnessed falls or seizures. Patient update on day of discharge: Chief Complaint: Seizure History of Present Illness: Patient is a 62-year-old male who presents to the emergency room with a history of frequent falls, head injury and seizure just prior to arrival. 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 Ramirez), hypertension, diabetes and depression. 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 Apparently he has had several falls after which he refused to come to the hospital. After his most recent one he experienced a seizure which caused him to decide to come in. He has no history of seizures. At admit this visit he is noted to have lactic acidosis, per Dr. Devine ED physician he was seen in the emergency room on 03/23/18 for similar. At that time he was rehydrated after which symptoms resolved and he returned home. Prior to that he was discharged from the hospital on 02/06/18 after being admitted for sepsis/pneumonia. Patient is seen in room. No family is at bedside. He appears to be a somewhat unreliable historian; he is oriented to self time and location but recall of recent events is sometimes unclear. He tells me that he has had 3 falls in the last month. Yesterday he fell while trying to go to the bathroom. He did experience incontinence of urine after that episode. This morning he fell in his living room and when he came to he noticed that his hands were shaking and he could not make them stop. Experienced some dizziness prior to all falls. No changes in vision. No headache. No nausea or vomiting. No unwitnessed falls or seizures. 03-30 MRI OF HEAD IS POSITIVE FOR SUBACUTE INFARCT ECHO IS PENDING CAROTIDS ARE STABLE NEEDS ASPIRIN DW RN AND PT AND CM STATES HAS SOME PO INTAKE AND DOES TUBE FEEDS 03-31 WAS SEEN BY BRIAN- NOTE IS NOT AVAILABLE ?CVA/INFARCT PER MRI CAROTIDS STABLE ECHO 40-45% HAS SEEN PT AND OT EEG DONE RESULTS PENDING NEEDS PT 7 DAYS A WEEK 04-01 DW RADIOLOGY THEY FEEL THIS IS A STROKE NOT A MASS WILL START ASPIRIN 81MG PO DAILY HOPEFULLY DC TO HOME DW RN AND PT AND CM EEG IS NORMAL DC TO HOME TODAY DS: Diagnosis - Discharge Diagnosis (1) Sepsis Status: Suspected (2) Pancytopenia Status: Acute (3) Tachycardia Status: Acute (4) Cancer of head and neck Status: Acute (5) Acute hyperkalemia Status: Acute (6) Acidosis, lactic Status: Resolved DS: Medications - Discharge Medications Prescriptions: dexamethasone 4 mg FEEDING TUBE QID #120 tab escitalopram oxalate 10 mg FEEDING TUBE DAILY #30 tab hydrocodone-acetaminophen 1 tab FEEDING TUBE Q4H PRN #30 tab PRN Reason: pain 1 to 10 levetiracetam [Keppra] 500 mg NG/OG BID #300 ml metformin 1,000 mg FEEDING TUBE BID #60 tab promethazine-codeine 10 ml FEEDING TUBE Q4-6H PRN #118 ml PRN Reason: cough DS: Summary Hospital Course: Chief Complaint: Seizure History of Present Illness: Patient is a 62-year-old male who presents to the emergency room with a history of frequent falls, head injury and seizure just prior to arrival. 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 Ramirez), hypertension, diabetes and depression. 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 Apparently he has had several falls after which he refused to come to the hospital. After his most recent one he experienced a seizure which caused him to decide to come in. He has no history of seizures. At admit this visit he is noted to have lactic acidosis, per Dr. Devine ED physician he was seen in the emergency room on 03/23/18 for similar. At that time he was rehydrated after which symptoms resolved and he returned home. Prior to that he was discharged from the hospital on 02/06/18 after being admitted for sepsis/pneumonia. Patient is seen in room. No family is at bedside. He appears to be a somewhat unreliable historian; he is oriented to self time and location but recall of recent events is sometimes unclear. He tells me that he has had 3 falls in the last month. Yesterday he fell while trying to go to the bathroom. He did experience incontinence of urine after that episode. This morning he fell in his living room and when he came to he noticed that his hands were shaking and he could not make them stop. Experienced some dizziness prior to all falls. No changes in vision. No headache. No nausea or vomiting. No unwitnessed falls or seizures. 03-30 MRI OF HEAD IS POSITIVE FOR SUBACUTE INFARCT ECHO IS PENDING CAROTIDS ARE STABLE NEEDS ASPIRIN DW RN AND PT AND CM STATES HAS SOME PO INTAKE AND DOES TUBE FEEDS 03-31 WAS SEEN BY BRIAN- NOTE IS NOT AVAILABLE ?CVA/INFARCT PER MRI CAROTIDS STABLE ECHO 40-45% HAS SEEN PT AND OT EEG DONE RESULTS PENDING NEEDS PT 7 DAYS A WEEK 04-01 DW RADIOLOGY THEY FEEL THIS IS A STROKE NOT A MASS WILL START ASPIRIN 81MG PO DAILY HOPEFULLY DC TO HOME DW RN AND PT AND CM EEG IS NORMAL Patient has been seen by neurology who has cleared him as well as by oncology who has cleared him E-FORCSE Prescription Drug Monitoring Database has been queried and verified prior to prescribing the controlled substance. Acute pain exception. This patient has normal, predicted, physiological, and time limited response to an adverse mechanical stimulus associated with surgery, trauma, or acute illness as described in my notes. There is a lack of alternative treatment options other than to include the prescribed narcotic treatment for this condition. checked and rx written - Time Spent with Patient Total time spent providing and/or coordinating discharge services: Greater than 30 minutes - Quality: VTE Deep Vein Thrombosis/Pulmonary Embolism Present on Admission: No Exam Vital signs: Vital Signs 03/31/18 20:00 04/01/18 00:00 04/01/18 04:00 Temperature 97.9 F 97.7 F 98.0 F Pulse Rate 100 H 116 H 117 H Respiratory Rate 18 18 16 Blood Pressure 116/74 123/83 132/81 Pulse Oximetry 99 98 96 04/01/18 08:00 04/01/18 12:00 04/01/18 16:00 Temperature 98.0 F 97.5 F L 97.4 F L Pulse Rate 88 85 85 Respiratory Rate 17 17 17 Blood Pressure 130/75 138/76 143/82 H Pulse Oximetry 98 99 98 Intake & Output 03/31/18 04/01/18 04/01/18 18:59 06:59 18:59 Intake Total 1440 / 1440 580 / 580 Balance 1440 / 1440 580 / 580 Weight 71 kg Intake: Oral 650 / 650 580 / 580 Tube Feeding 640 / 640 Water Bolus Amount 150 / 150 Other: # Voids 5 4 Date of Last Bowel Movement 03/30/18 03/30/18 # Bowel Movements 1 Narrative: GENERAL: Well-nourished, well-developed adult male in no obvious distress. SKIN: Warm and dry. EYES: PERRLA HEAD: Normocephalic. Bruising around both eyes. Multiple small lacerations/ abrasions with one larger laceration to right middle forehead -healing. CARDIOVASCULAR: Regular rate and rhythm. RESPIRATORY: No accessory muscle use. Clear to auscultation. Breath sounds equal bilaterally. GASTROINTESTINAL: Abdomen soft, non-tender, non-distended. Positive bowel sounds. PEG. MUSCULOSKELETAL: Extremities without clubbing, cyanosis, or edema. No obvious deformities. NEUROLOGICAL: Awake and alert. No obvious cranial nerve deficits. No facial droop. Motor grossly within normal limits. 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 normal speech. Results Procedures completed during hospitalization: NONE Completed studies during hospitalization: ITS Impressions Head MRI 03/29/18 00:00 CONCLUSION: 1. Focal region of abnormal cortical signal without restricted diffusion or abnormal enhancement/mass in the left frontal high convexities at the vertex. This is most consistent with a subacute focal region of infarction. Chest X-Ray 03/29/18 15:04 CONCLUSION: Clear lungs. Head CT 03/29/18 15:57 CONCLUSION: 1. No acute hemorrhage or mass effect. 2. 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 . Neck MRA 03/30/18 00:00 CONCLUSION: Mild atherosclerotic plaque in the carotid bulbs bilaterally. However, there is a less than 50% stenosis. Percent stenosis is calculated using the diameter of the stenotic region over the diameter of the normal distal internal carotid artery Head MRA 03/30/18 09:35 CONCLUSION: No intracranial vascular abnormality is identified. Laboratory Results WBC 10.9 th/mm3 (4.0-11.0) 04/01/18 06:00 RBC 2.91 mil/mm3 (4.50-5.90) L 04/01/18 06:00 Hgb 10.7 gm/dL (13.0-17.0) L 04/01/18 06:00 Hct 31.5 % (39.0-51.0) L 04/01/18 06:00 MCV 108.3 fL (80.0-100.0) H 04/01/18 06:00 MCH 36.8 pg (27.0-34.0) H 04/01/18 06:00 MCHC 34.0 % (32.0-36.0) 04/01/18 06:00 RDW 15.8 % (11.6-17.2) 04/01/18 06:00 Plt Count 223 th/mm3 (150-450) 04/01/18 06:00 MPV 7.0 fL (7.0-11.0) 04/01/18 06:00 Prelim Diff (Auto) Slide review pending 03/29/18: Neut % (Auto) 92.9 % (16.0-70.0) H 04/01/18 06:00 Lymph % (Auto) 3.4 % (9.0-44.0) L 04/01/18 06:00 [place] % (Auto) 3.5 % (0.0-8.0) 04/01/18 06:00 Eos % (Auto) 0.0 % (0.0-4.0) 04/01/18 06:00 Baso % (Auto) 0.2 % (0.0-2.0) 04/01/18 06:00 Neut # (Auto) 10.1 th/mm3 (1.8-7.7) H 04/01/18 06:00 Lymph # (Auto) 0.4 th/mm3 (1.0-4.8) L 04/01/18 06:00 [place] # (Auto) 0.4 th/mm3 (0.0-0.9) 04/01/18 06:00 Eos # (Auto) 0.0 th/mm3 (0.0-0.4) 04/01/18 06:00 Baso # (Auto) 0.0 th/mm3 (0.0-0.2) 04/01/18 06:00 WBC Differential . 04/01/18 06:00 Diff Scan Auto diff confirmed 03/29/18: Differential Comment Auto diff final 04/01/18 06:00 Platelet Estimate Normal (Normal) 03/29/18 15: Platelet Morphology Normal (Normal) 03/29/18 15:26 PT 10.9 sec (9.8-11.6) 03/31/18 05:30 INR 1.1 Ratio 03/31/18 05:30 Puncture Site Right radial 03/29/18 17:39 Patient Temperature 98.6 03/29/18 17:39 O2 Saturation 94 % (90-100) 03/29/18 17:39 ABG pH 7.43 (7.380-7.420) H 03/29/18 17:39 ABG pCO2 35 mmHg (38-42) L 03/29/18 17:39 ABG pO2 85 mmHg (61-120) 03/29/18 17:39 ABG HCO3 23 mmol/L (22-26) 03/29/18 17:39 ABG O2 Content 14.2 Vol % (12.0-20.0) 03/29/18 17:39 ABG Base Excess -0.8 mmol/L (-2-2) 03/29/18 17:39 ABG Methemoglobin 0.3 % (0-2) 03/29/18 17:39 Kevin Test Y 03/29/18 17:39 Hemoglobin 10.7 G/DL (12.0-16.0) L 03/29/18 17:39 Carboxyhemoglobin 1.9 % (0-4) 03/29/18 17:39 O2 Delivery Device Room air 03/29/18 17:39 Inspired O2 21 % 03/29/18 17:39 Critical Value No 03/29/18 17:39 Sodium 133 meq/L (136-145) L 04/01/18 06:00 Potassium 4.5 meq/L (3.5-5.1) D 04/01/18 06:00 Chloride 98 meq/L (98-107) 04/01/18 06:00 Carbon Dioxide 26.9 meq/L (21.0-32.0) 04/01/18 06:00 Anion Gap 8 meq/L (5-15) 04/01/18 06:00 BUN 10 mg/dL (7-18) 04/01/18 06:00 Creatinine 0.61 mg/dL (0.60-1.30) 04/01/18 06:00 Estimated GFR Greater than 89 mL/min (>89) 04/01/18 06:00 POC Glucose 272 mg/dl (68-110) H 04/01/18 11:17 Random Glucose 182 mg/dL (74-106) H 04/01/18 06:00 Hemoglobin A1c 5.1 % (4.3-6.0) 03/31/18 05:30 Lactic Acid 0.6 mmol/L (0.4-2.0) 03/30/18 05:15 Calcium 8.6 mg/dL (8.5-10.1) 04/01/18 06:00 Phosphorus 3.4 mg/dL (2.5-4.9) 04/01/18 06:00 Magnesium 1.6 mg/dL (1.5-2.5) 04/01/18 06:00 Total Bilirubin 0.3 mg/dL (0.2-1.0) 04/01/18 06:00 AST 10 U/L (15-37) L 04/01/18 06:00 ALT 13 U/L (12-78) 04/01/18 06:00 Alkaline Phosphatase 74 U/L (45-117) 04/01/18 06:00 Total Creatine Kinase 54 U/L (39-308) 03/30/18 05:15 Troponin I Less than 0.02 ng/mL (0.02-0.05) L 03/31/18 05:30 Total Protein 7.0 g/dL (6.4-8.2) 04/01/18 06:00 Albumin 3.0 g/dL (3.4-5.0) L 04/01/18 06:00 Triglycerides 102 mg/dL (42-150) 03/31/18 05:30 Cholesterol 93 mg/dL (120-200) L 03/31/18 05:30 LDL Cholesterol, Calc 33 mg/dL (0-99) 03/31/18 05:30 HDL Cholesterol 39.7 mg/dL (40.0-60.0) L 03/31/18 05:30 Cholesterol/HDL Ratio 2.34 Ratio 03/31/18 05:30 Vitamin B12 647 pg/mL (193-986) 03/30/18 10:10 TSH 0.825 uIU/mL (0.358-3.740) 03/31/18 05:30 Free T4 1.00 ng/dL (0.76-1.46) 03/31/18 05:30 Urine Color Straw (Yellw/Straw) 03/29/18 16:33 Urine Clarity Clear (Clear) 03/29/18 16:33 Urine pH 6.0 (5.0-8.5) 03/29/18 16:33 Ur Specific [place] 1.006 (1.002-1.035) 03/29/18 16:33 Urine Protein Negative mg/dL (Neg-Trace) 03/29/18 16:33 Urine Glucose (UA) 50 mg/dL (Negative) 03/29/18 16:33 Urine Ketones Negative mg/dL (Negative) 03/29/18 16:33 Urine Occult Blood Negative (Negative) 03/29/18 16:33 Urine Nitrate Negative (Negative) 03/29/18 16:33 Urine Bilirubin Negative (Negative) 03/29/18 16:33 Urine Urobilinogen Less than 2 mg/dL (Less than 2) 03/29/18 16:33 Ur Leukocyte Esterase Negative (Negative) 03/29/18 16:33 Urine WBC 2 /hpf (0-5) 03/29/18 16:33 Hyaline Casts 1 /lpf (0-3) 03/29/18 16:33 Urine Mucus Few /lpf (Occasional) H 03/29/18 16:33 Micro UA Comment Culture not ind 03/29/18 16:33 Ur Microscopic Review Not Reportable 03/29/18 16:33 Urine Culture Comments Culture not ind 03/29/18 16:33 Impressions Head MRI 03/29/18 00:00 CONCLUSION: 1. Focal region of abnormal cortical signal without restricted diffusion or abnormal enhancement/mass in the left frontal high convexities at the vertex. This is most consistent with a subacute focal region of infarction. Chest X-Ray 03/29/18 15:04 CONCLUSION: Clear lungs. Head CT 03/29/18 15:57 CONCLUSION: 1. No acute hemorrhage or mass effect. 2. 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 . Neck MRA 03/30/18 00:00 CONCLUSION: Mild atherosclerotic plaque in the carotid bulbs bilaterally. However, there is a less than 50% stenosis. Percent stenosis is calculated using the diameter of the stenotic region over the diameter of the normal distal internal carotid artery Head MRA 03/30/18 09:35 CONCLUSION: No intracranial vascular abnormality is identified. Labs on day of discharge: Labs from last 24 hours 04/01/18 04/01/18 04/01/18 11:17 08:13 06:00 WBC RBC Hgb Hct MCV MCH MCHC RDW Plt Count MPV Neut % (Auto) Lymph % (Auto) [place] % (Auto) Eos % (Auto) Baso % (Auto) Neut # (Auto) Lymph # (Auto) [place] # (Auto) Eos # (Auto) Baso # (Auto) WBC Differential Differential Comment Sodium 133 L Potassium 4.5 D Chloride 98 Carbon Dioxide 26.9 Anion Gap 8 BUN 10 Creatinine 0.61 Estimated GFR Greater than 89 POC Glucose 272 H 192 H Random Glucose 182 H Calcium 8.6 Phosphorus 3.4 Magnesium 1.6 Total Bilirubin 0.3 AST 10 L ALT 13 Alkaline Phosphatase 74 Total Protein 7.0 Albumin 3.0 L 04/01/18 03/31/18 06:00 20:59 WBC 10.9 RBC 2.91 L Hgb 10.7 L Hct 31.5 L MCV 108.3 H MCH 36.8 H MCHC 34.0 RDW 15.8 Plt Count 223 MPV 7.0 Neut % (Auto) 92.9 H Lymph % (Auto) 3.4 L [place] % (Auto) 3.5 Eos % (Auto) 0.0 Baso % (Auto) 0.2 Neut # (Auto) 10.1 H Lymph # (Auto) 0.4 L [place] # (Auto) 0.4 Eos # (Auto) 0.0 Baso # (Auto) 0.0 WBC Differential . Differential Comment Auto diff final Sodium Potassium Chloride Carbon Dioxide Anion Gap BUN Creatinine Estimated GFR POC Glucose 320 H Random Glucose Calcium Phosphorus Magnesium Total Bilirubin AST ALT Alkaline Phosphatase Total Protein Albumin Preliminary micro results at discharge 03/29/18 15:20 Aerobic Blood Culture - Preliminary Blood - Peripheral No growth in 3 days Anaerobic Blood Culture - Preliminary No growth in 3 days 03/29/18 15:26 Aerobic Blood Culture - Preliminary Blood - Peripheral No growth in 3 days Anaerobic Blood Culture - Preliminary No growth in 3 days - Impressions ITS Impressions Head MRI 03/29/18 00:00 CONCLUSION: 1. Focal region of abnormal cortical signal without restricted diffusion or abnormal enhancement/mass in the left frontal high convexities at the vertex. This is most consistent with a subacute focal region of infarction. Chest X-Ray 03/29/18 15:04 CONCLUSION: Clear lungs. Head CT 03/29/18 15:57 CONCLUSION: 1. No acute hemorrhage or mass effect. 2. 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 . Neck MRA 03/30/18 00:00 CONCLUSION: Mild atherosclerotic plaque in the carotid bulbs bilaterally. However, there is a less than 50% stenosis. Percent stenosis is calculated using the diameter of the stenotic region over the diameter of the normal distal internal carotid artery Head MRA 03/30/18 09:35 CONCLUSION: No intracranial vascular abnormality is identified. Discharge Plan - Discharge Disposition Patient Disposition: 01 Discharge Home - Discharge Condition Condition: Good - Discharge Order Discharge Orders: Discharge Order (Routine); Ordered 04/01/18 Ordered By: Nithin Palencia - Discharge Details Anticipated Discharge Date: 04/01/18 Discharge Comment: dc to home - Physicians Team Primary Care Provider: UNKNOWN, Attending Provider: Nithin Palencia Other Providers: Ketan Arias MD ; David Ramirez MD
[2018-04-01] MEDS ORDERED: Heparin Central Flush 100 UNIT/ML 5 ML Vial IV.FLUSH PRN ×2 (18:13)
--- NOTE | 2018-04-03 15:09 | HM ---
Date Performed: 03/31/2018 Time Performed: 14:57:00 HOOKUP DATE: 03/31/18 02:57:00 PM Sun ANALYSIS START TIME: 03/31/2018 3:02:00 PM ANALYSIS END TIME: 04/01/2018 2:52:06 PM PATIENT AGE: 62 PATIENT HEIGHT PATIENT WEIGHT DRUG LIST PATIENT DIAGNOSIS: seizure TEST NARRATIVE: The patient's average heart rate was 99 BPM. Heart rates greater than 120 B PM were noted 6% of the time. No episodes of bradycardia were noted. No pauses exceeding 2.0 sec onds were noted. No ventricular ectopics were noted. 179 supraventricular ectopics, which rep resented < 1% of the total beat count, were noted. The highest supraventricular ectopic frequency oc curred from 12:00 AM to 01:00 AM Mon. During this time 25 SVE(s) occurred. No episodes of ST dep ression (defined as -1.0 mm or more) were noted in channel 1. No episodes of ST depression (defined as -1.0 mm or more) were noted in channel 2. No episodes of ST depression (defined as -1.0 mm or mor e) were noted in channel 3. TEST INTERPRETATION: Sinus rhythm Sinus tachycardia Rare to occasional premature atrial complexes and nonsustained short atrial runs/s upraventricular tachycardia Jessi d by : Miguelangel Lepe
== END 2018-04-01 18:42 | disposition home or self-care (01) ==
LOC: NEPE 14:46 → INTOOBSV 16:47 → NEDA 16:47 → N07 17:59
PROVIDERS: ADMIT Hospitalist; ATTEND Hospitalist

== ENCOUNTER 2018-05-28 23:57 | Inpatient (IN) ==
[2018-05-29 00:58] LABS: Baso % (Auto) 0.2 % (0.0-2.0); Eos % (Auto) 0.1 % (0.0-4.0); Hematocrit 36.4 % (39.0-51.0); Hemoglobin 12.6 gm/dL (13.0-17.0); Lymph # (Auto) 0.4 th/mm3 (1.0-4.8); Lymph % (Auto) 4.5 % (9.0-44.0); Mean Corpuscular HGB Conc 34.5 % (32.0-36.0); Mean Corpuscular Hemoglobin 35.2 pg (27.0-34.0); Mean Corpuscular Volume 101.9 fL (80.0-100.0); Mean Platelet Volume 7.2 fL (7.0-11.0); Mono # (Auto) 0.5 th/mm3 (0.0-0.9); Neut # (Auto) 8.8 th/mm3 (1.8-7.7); Neut % (Auto) 90.2 % (16.0-70.0); Platelet Count 161 th/mm3 (150-450); Red Blood Count 3.57 mil/mm3 (4.50-5.90); Red Cell Distribution Width 14.5 % (11.6-17.2); White Blood Count 9.8 th/mm3 (4.0-11.0)
[2018-05-29 01:08] LABS: Activated Partial Thrombo Time 26.4 sec (23.4-31.7)
[2018-05-29 01:13] LABS: Alanine Aminotransferase 13 U/L (12-78); Albumin 2.7 g/dL (3.4-5.0); Anion Gap 13 meq/L (5-15); Aspartate Aminotransferase 7 U/L (15-37); Blood Urea Nitrogen 7 mg/dL (7-18); Calcium 8.4 mg/dL (8.5-10.1); Carbon Dioxide 28.4 meq/L (21.0-32.0); Chloride 98 meq/L (98-107); Glomerular Filtration Rate Greater Than 89 mL/min (>89); Glucose,Random 341 mg/dL (74-106); Magnesium 1.3 mg/dL (1.5-2.5); Potassium 3.4 meq/L (3.5-5.1); Sodium 139 meq/L (136-145)
[2018-05-29 01:18] LABS: Alkaline Phosphatase 88 U/L (45-117); Total Protein 6.4 g/dL (6.4-8.2)
[2018-05-29 01:19] LABS: Alcohol 198 mg/dL (0-5); Creatine Kinase 15 U/L (39-308)
[2018-05-29 01:35] LABS: Bilirubin,Urine Negative (Negative); Clarity,Urine Clear (Clear); Color,Urine Straw (Yellw/Straw); Glucose,Urine (UA) 500 or Greater mg/dL (Negative); Leukocyte Esterase,Urine Negative (Negative); Nitrite,Urine Negative (Negative); Specific Gravity,Urine 1.029 (1.002-1.035)
--- NOTE | 2018-05-29 02:05 | XR ---
EXAM DATE: 05/29/2018 1:37 AM EST AGE/SEX: 62 years / Male INDICATIONS: Shortness of breath. CLINICAL DATA: This is the patient's initial encounter. Patient reports that signs and symptoms have been present for 1 day and indicates a pain score of 0/10. MEDICAL/SURGICAL HISTORY: . Carcinoma, pharyngeal. Diabetes mellitus type II. Hypertension. . . . SKin graft, PEG tube. COMPARISON: C, CHEST 1V SINGLE AP, 03/29/2018. . FINDINGS: Stable right IJ [id number]. No significant new focal pleural or parenchymal opacities. Cardiomedia stinal contours are within normal limits. Bony thorax is intact. CONCLUSION: 1. No acute abnormality or interval change. Electronically signed by: Aleksey Moreno MD Board Certified Radiologist 05/29/2018 2:04 AM FAN [facility]
--- NOTE | 2018-05-29 02:20 | ED ---
HPI General Chief complaint: Weakness Stated complaint: Weakness Time Seen by Provider: 05/29/18 00:17 Source: EMS Mode of arrival: EMS Limitations: altered mental status History of Present Illness HPI narrative: 62-year-old male came to the emergency room brought by EMS after he was found in his apartment altered mental status, on the floor. Patient has history of seizure and there is a possibility that he had seizure and postictal. This was unwitnessed however. As per EMS patient was found in a very unhygienic surrounding. He appeared to be disheveled, taking care of himself poorly with urine and feces around and infestation in his apartment with multiple insects. Patient was coughing on route and a mask was applied on him. Currently patient is lethargic and answering questions slowly. He says that he drinks every day. Patient does have history of seizure and is supposed to be taking Keppra. I am unsure if he is compliant with all his medications. There is signs of old injury on his scalp although patient did not come to the emergency room as per his own admittance to seek any help. Patient was tachycardic upon arrival. Heart rate was 128 bpm. Related Data Home Medications Medication Instructions Recorded Confirmed amlodipine 10 mg PO DAILY 03/29/18 03/29/18 Previous Rx's Medication Instructions Recorded dexamethasone 4 mg FEEDING TUBE QID #120 tab 04/01/18 escitalopram oxalate 10 mg FEEDING TUBE DAILY #30 tab 04/01/18 hydrocodone-acetaminophen 1 tab FEEDING TUBE Q4H PRN #30 tab 04/01/18 levetiracetam [Keppra] 500 mg NG/OG BID #300 ml 04/01/18 metformin 1,000 mg FEEDING TUBE BID #60 tab 04/01/18 promethazine-codeine 10 ml FEEDING TUBE Q4-6H PRN #118 04/01/18 ml folic acid 1 mg G-TUBE DAILY #30 tab 05/31/18 cijlwpau-sbqc-MJ-calcium-mins 1 tab G-TUBE DAILY #30 tab 05/31/18 [Thera M Plus (ferrous fumarat)] thiamine HCl (vitamin B1) 100 mg G-TUBE DAILY #30 tab 05/31/18 Allergies Allergy/AdvReac Type Severity Reaction Status Date / Time No Known Allergies Allergy Verified 05/29/18 00:16 Review of Systems ROS Unobtainable ROS Unobtainable: unobtainable due to mental status ROS: all other systems reviewed are negative [facility] Medical History Medical History Depression (Acute) Diabetes (Acute) History of radiation therapy (Acute) Hypertension (Acute) 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) Surgical History Surgical History H/O skin graft (Acute) History of vascular access device (Acute) PEG (percutaneous endoscopic gastrostomy) status (Acute) Status post chemotherapy (Acute) Family History Family History Mother Family history of cancer Social History Social History Substance History: Active Abuse Second Hand Smoke Exposure: No Smoking Status: Never smoker How Often Do You Have a Drink Containing Alcohol: 4 or more times a week Recent Travel in [facility] within the Last 8 Weeks: No Recent Out of Country Travel within the Last 8 Weeks: No Immunization History Tetanus Immunization: <5 Years Tetanus Immunization Year if Known: 2018 Exam Narrative Exam Narrative: GENERAL: Lethargic, answering questions slowly, no obvious distress SKIN: Focused skin assessment warm/dry. Poor skin hygiene HEAD: A large 6 cm old laceration without any active bleeding but clotted blood on the right temporal area EYES: Pupils equal and round. No scleral icterus. No injection or drainage. ENT: No nasal bleeding or discharge. Mucous membranes pink and moist. NECK: Trachea midline. No JVD. CARDIOVASCULAR: Regular rate and rhythm. No murmur appreciated. RESPIRATORY: No accessory muscle use. Clear to auscultation. Breath sounds equal bilaterally. GASTROINTESTINAL: Abdomen soft, non-tender, nondistended. Hepatic and splenic margins not palpable. MUSCULOSKELETAL: No obvious deformities. No clubbing. No cyanosis. No edema. NEUROLOGICAL: GCS of 14. No obvious cranial nerve deficits. Motor grossly within normal limits. Normal speech. PSYCHIATRIC: Appropriate mood and affect; insight and judgment normal. Course Initial Documented Vital Signs Temperature 98.8 F 05/29/18 00:12 Pulse Rate 128 H 05/29/18 00:12 Respiratory Rate 18 05/29/18 00:12 Blood Pressure 129/85 05/29/18 00:12 Pulse Oximetry 98 05/29/18 00:12 Last Documented Vital Signs Temperature 97.5 F L 06/01/18 08:48 Pulse Rate 108 H 06/01/18 08:48 Respiratory Rate 17 06/01/18 08:48 Blood Pressure 107/69 06/01/18 08:48 Pulse Oximetry 97 06/01/18 08:48 Medical Decision Making MDM Narrative Medical decision making narrative: 2:17 AM patient was given IV fluid bolus. Blood test results are back and lactic it is elevated. In my opinion this is probably from a seizure the patient had. Awaiting for head CT to be resulted. Patient will be admitted to the ICU. I discussed the case with the hospitalist was accepted the patient. Patient is at a very high risk of alcohol withdrawal and DTs. This has been conveyed to the hospitalist. Alcohol level is 198. Blood glucose level is elevated. Patient's magnesium level is low probably from the chronic alcohol consumption. I will give him mag replacement. Medical Screen Exam Complete: Yes Emergency Medical Condition: Yes Lab Data Result diagrams: 05/30/18 05:59 05/30/18 04:00 Lab Results 05/29/18 05/29/18 05/29/18 Range/Units 00:40 00:40 00:40 WBC 9.8 (4.0-11.0) th/mm3 RBC 3.57 L (4.50-5.90) mil/mm3 Hgb 12.6 L (13.0-17.0) gm/dL Hct 36.4 L (39.0-51.0) % MCV 101.9 H (80.0-100.0) fL MCH 35.2 H (27.0-34.0) pg MCHC 34.5 (32.0-36.0) % RDW 14.5 (11.6-17.2) % Plt Count 161 (150-450) th/mm3 MPV 7.2 (7.0-11.0) fL Neut % (Auto) 90.2 H (16.0-70.0) % Lymph % (Auto) 4.5 L (9.0-44.0) % [place] % (Auto) 5.0 (0.0-8.0) % Eos % (Auto) 0.1 (0.0-4.0) % Baso % (Auto) 0.2 (0.0-2.0) % Neut # (Auto) 8.8 H (1.8-7.7) th/mm3 Lymph # (Auto) 0.4 L (1.0-4.8) th/mm3 [place] # (Auto) 0.5 (0.0-0.9) th/mm3 Eos # (Auto) 0.0 (0.0-0.4) th/mm3 Baso # (Auto) 0.0 (0.0-0.2) th/mm3 WBC Differential . Differential Comment Auto diff final PT 10.0 (9.8-11.6) sec INR 1.0 Ratio APTT 26.4 (23.4-31.7) sec Sodium 139 (136-145) meq/L Potassium 3.4 L (3.5-5.1) meq/L Chloride 98 (98-107) meq/L Carbon Dioxide 28.4 (21.0-32.0) meq/L Anion Gap 13 (5-15) meq/L BUN 7 (7-18) mg/dL Creatinine 0.67 (0.60-1.30) mg/dL Estimated GFR Greater than 89 (>89) mL/min POC Glucose (68-110) mg/dl Random Glucose 341 H (74-106) mg/dL Lactic Acid (0.4-2.0) mmol/L Calcium 8.4 L (8.5-10.1) mg/dL Calcium Adj for Albumin (8.5-10.1) mg/dL Magnesium 1.3 L (1.5-2.5) mg/dL Total Bilirubin 0.3 (0.2-1.0) mg/dL AST 7 L (15-37) U/L ALT 13 (12-78) U/L Alkaline Phosphatase 88 (45-117) U/L Ammonia (11-32) mcmol/L Total Creatine Kinase 15 L (39-308) U/L Troponin I Less than 0.02 L (0.02-0.05) ng/mL Total Protein 6.4 (6.4-8.2) g/dL Albumin 2.7 L (3.4-5.0) g/dL Urine Color (Yellw/Straw) Urine Clarity (Clear) Urine pH (5.0-8.5) Ur Specific [place] (1.002-1.035) Urine Protein (Neg-Trace) mg/dL Urine Glucose (UA) (Negative) mg/dL Urine Ketones (Negative) mg/dL Urine Occult Blood (Negative) Urine Nitrate (Negative) Urine Bilirubin (Negative) Urine Urobilinogen (Less than 2) mg/dL Ur Leukocyte Esterase (Negative) Urine RBC (0-3) /hpf Urine WBC (0-5) /hpf Micro UA Comment Ur Microscopic Review Urine Culture Comments Nasal Screen MRSA (PCR) (Negative) Urine Opiates Screen (Neg) Ur Barbiturates Screen (Neg) Ur Amphetamines Screen (Neg) U Benzodiazepines Scrn (Neg) Urine Cocaine Screen (Neg) U Cannabinoids Screen (Neg) Serum Alcohol 198 H (0-5) mg/dL Blood Type Blood Type Recheck Antibody Screen 05/29/18 05/29/18 05/29/18 Range/Units 00:40 00:40 01:15 WBC (4.0-11.0) th/mm3 RBC (4.50-5.90) mil/mm3 Hgb (13.0-17.0) gm/dL Hct (39.0-51.0) % MCV (80.0-100.0) fL MCH (27.0-34.0) pg MCHC (32.0-36.0) % RDW (11.6-17.2) % Plt Count (150-450) th/mm3 MPV (7.0-11.0) fL Neut % (Auto) (16.0-70.0) % Lymph % (Auto) (9.0-44.0) % [place] % (Auto) (0.0-8.0) % Eos % (Auto) (0.0-4.0) % Baso % (Auto) (0.0-2.0) % Neut # (Auto) (1.8-7.7) th/mm3 Lymph # (Auto) (1.0-4.8) th/mm3 [place] # (Auto) (0.0-0.9) th/mm3 Eos # (Auto) (0.0-0.4) th/mm3 Baso # (Auto) (0.0-0.2) th/mm3 WBC Differential Differential Comment PT (9.8-11.6) sec INR Ratio APTT (23.4-31.7) sec Sodium (136-145) meq/L Potassium (3.5-5.1) meq/L Chloride (98-107) meq/L Carbon Dioxide (21.0-32.0) meq/L Anion Gap (5-15) meq/L BUN (7-18) mg/dL Creatinine (0.60-1.30) mg/dL Estimated GFR (>89) mL/min POC Glucose (68-110) mg/dl Random Glucose (74-106) mg/dL Lactic Acid (0.4-2.0) mmol/L Calcium (8.5-10.1) mg/dL Calcium Adj for Albumin (8.5-10.1) mg/dL Magnesium (1.5-2.5) mg/dL Total Bilirubin (0.2-1.0) mg/dL AST (15-37) U/L ALT (12-78) U/L Alkaline Phosphatase (45-117) U/L Ammonia Less than 10 L (11-32) mcmol/L Total Creatine Kinase (39-308) U/L Troponin I (0.02-0.05) ng/mL Total Protein (6.4-8.2) g/dL Albumin (3.4-5.0) g/dL Urine Color (Yellw/Straw) Urine Clarity (Clear) Urine pH (5.0-8.5) Ur Specific [place] (1.002-1.035) Urine Protein (Neg-Trace) mg/dL Urine Glucose (UA) (Negative) mg/dL Urine Ketones (Negative) mg/dL Urine Occult Blood (Negative) Urine Nitrate (Negative) Urine Bilirubin (Negative) Urine Urobilinogen (Less than 2) mg/dL Ur Leukocyte Esterase (Negative) Urine RBC (0-3) /hpf Urine WBC (0-5) /hpf Micro UA Comment Ur Microscopic Review Urine Culture Comments Nasal Screen MRSA (PCR) (Negative) Urine Opiates Screen Neg (Neg) Ur Barbiturates Screen Neg (Neg) Ur Amphetamines Screen Neg (Neg) U Benzodiazepines Scrn Neg (Neg) Urine Cocaine Screen Neg (Neg) U Cannabinoids Screen Neg (Neg) Serum Alcohol (0-5) mg/dL Blood Type B Positive Blood Type Recheck Required Antibody Screen Negative 05/29/18 05/29/18 05/29/18 Range/Units 01:15 01:46 04:00 WBC (4.0-11.0) th/mm3 RBC (4.50-5.90) mil/mm3 Hgb (13.0-17.0) gm/dL Hct (39.0-51.0) % MCV (80.0-100.0) fL MCH (27.0-34.0) pg MCHC (32.0-36.0) % RDW (11.6-17.2) % Plt Count (150-450) th/mm3 MPV (7.0-11.0) fL Neut % (Auto) (16.0-70.0) % Lymph % (Auto) (9.0-44.0) % [place] % (Auto) (0.0-8.0) % Eos % (Auto) (0.0-4.0) % Baso % (Auto) (0.0-2.0) % Neut # (Auto) (1.8-7.7) th/mm3 Lymph # (Auto) (1.0-4.8) th/mm3 [place] # (Auto) (0.0-0.9) th/mm3 Eos # (Auto) (0.0-0.4) th/mm3 Baso # (Auto) (0.0-0.2) th/mm3 WBC Differential Differential Comment PT (9.8-11.6) sec INR Ratio APTT (23.4-31.7) sec Sodium (136-145) meq/L Potassium (3.5-5.1) meq/L Chloride (98-107) meq/L Carbon Dioxide (21.0-32.0) meq/L Anion Gap (5-15) meq/L BUN (7-18) mg/dL Creatinine (0.60-1.30) mg/dL Estimated GFR (>89) mL/min POC Glucose (68-110) mg/dl Random Glucose (74-106) mg/dL Lactic Acid 4.6 H* (0.4-2.0) mmol/L Calcium (8.5-10.1) mg/dL Calcium Adj for Albumin (8.5-10.1) mg/dL Magnesium (1.5-2.5) mg/dL Total Bilirubin (0.2-1.0) mg/dL AST (15-37) U/L ALT (12-78) U/L Alkaline Phosphatase (45-117) U/L Ammonia (11-32) mcmol/L Total Creatine Kinase (39-308) U/L Troponin I (0.02-0.05) ng/mL Total Protein (6.4-8.2) g/dL Albumin (3.4-5.0) g/dL Urine Color Straw (Yellw/Straw) Urine Clarity Clear (Clear) Urine pH 6.0 (5.0-8.5) Ur Specific [place] 1.029 (1.002-1.035) Urine Protein Negative (Neg-Trace) mg/dL Urine Glucose (UA) 500 or greater (Negative) mg/dL Urine Ketones Negative (Negative) mg/dL Urine Occult Blood Negative (Negative) Urine Nitrate Negative (Negative) Urine Bilirubin Negative (Negative) Urine Urobilinogen Less than 2 (Less than 2) mg/dL Ur Leukocyte Esterase Negative (Negative) Urine RBC 1 (0-3) /hpf Urine WBC 1 (0-5) /hpf Micro UA Comment Cath-culture not ind Ur Microscopic Review Not Reportable Urine Culture Comments Cath-cult not ind Nasal Screen MRSA (PCR) Not detected (Negative) Urine Opiates Screen (Neg) Ur Barbiturates Screen (Neg) Ur Amphetamines Screen (Neg) U Benzodiazepines Scrn (Neg) Urine Cocaine Screen (Neg) U Cannabinoids Screen (Neg) Serum Alcohol (0-5) mg/dL Blood Type Blood Type Recheck Antibody Screen 05/29/18 05/29/18 05/29/18 Range/Units 04:49 04:49 07:53 WBC (4.0-11.0) th/mm3 RBC (4.50-5.90) mil/mm3 Hgb (13.0-17.0) gm/dL Hct (39.0-51.0) % MCV (80.0-100.0) fL MCH (27.0-34.0) pg MCHC (32.0-36.0) % RDW (11.6-17.2) % Plt Count (150-450) th/mm3 MPV (7.0-11.0) fL Neut % (Auto) (16.0-70.0) % Lymph % (Auto) (9.0-44.0) % [place] % (Auto) (0.0-8.0) % Eos % (Auto) (0.0-4.0) % Baso % (Auto) (0.0-2.0) % Neut # (Auto) (1.8-7.7) th/mm3 Lymph # (Auto) (1.0-4.8) th/mm3 [place] # (Auto) (0.0-0.9) th/mm3 Eos # (Auto) (0.0-0.4) th/mm3 Baso # (Auto) (0.0-0.2) th/mm3 WBC Differential Differential Comment PT (9.8-11.6) sec INR Ratio APTT (23.4-31.7) sec Sodium (136-145) meq/L Potassium (3.5-5.1) meq/L Chloride (98-107) meq/L Carbon Dioxide (21.0-32.0) meq/L Anion Gap (5-15) meq/L BUN (7-18) mg/dL Creatinine (0.60-1.30) mg/dL Estimated GFR (>89) mL/min POC Glucose 164 H (68-110) mg/dl Random Glucose (74-106) mg/dL Lactic Acid 6.3 H* (0.4-2.0) mmol/L Calcium (8.5-10.1) mg/dL Calcium Adj for Albumin (8.5-10.1) mg/dL Magnesium (1.5-2.5) mg/dL Total Bilirubin (0.2-1.0) mg/dL AST (15-37) U/L ALT (12-78) U/L Alkaline Phosphatase (45-117) U/L Ammonia (11-32) mcmol/L Total Creatine Kinase 19 L (39-308) U/L Troponin I (0.02-0.05) ng/mL Total Protein (6.4-8.2) g/dL Albumin (3.4-5.0) g/dL Urine Color (Yellw/Straw) Urine Clarity (Clear) Urine pH (5.0-8.5) Ur Specific [place] (1.002-1.035) Urine Protein (Neg-Trace) mg/dL Urine Glucose (UA) (Negative) mg/dL Urine Ketones (Negative) mg/dL Urine Occult Blood (Negative) Urine Nitrate (Negative) Urine Bilirubin (Negative) Urine Urobilinogen (Less than 2) mg/dL Ur Leukocyte Esterase (Negative) Urine RBC (0-3) /hpf Urine WBC (0-5) /hpf Micro UA Comment Ur Microscopic Review Urine Culture Comments Nasal Screen MRSA (PCR) (Negative) Urine Opiates Screen (Neg) Ur Barbiturates Screen (Neg) Ur Amphetamines Screen (Neg) U Benzodiazepines Scrn (Neg) Urine Cocaine Screen (Neg) U Cannabinoids Screen (Neg) Serum Alcohol (0-5) mg/dL Blood Type Blood Type Recheck Antibody Screen 05/29/18 05/29/18 05/29/18 Range/Units 14:10 16:58 20:41 WBC (4.0-11.0) th/mm3 RBC (4.50-5.90) mil/mm3 Hgb (13.0-17.0) gm/dL Hct (39.0-51.0) % MCV (80.0-100.0) fL MCH (27.0-34.0) pg MCHC (32.0-36.0) % RDW (11.6-17.2) % Plt Count (150-450) th/mm3 MPV (7.0-11.0) fL Neut % (Auto) (16.0-70.0) % Lymph % (Auto) (9.0-44.0) % [place] % (Auto) (0.0-8.0) % Eos % (Auto) (0.0-4.0) % Baso % (Auto) (0.0-2.0) % Neut # (Auto) (1.8-7.7) th/mm3 Lymph # (Auto) (1.0-4.8) th/mm3 [place] # (Auto) (0.0-0.9) th/mm3 Eos # (Auto) (0.0-0.4) th/mm3 Baso # (Auto) (0.0-0.2) th/mm3 WBC Differential Differential Comment PT (9.8-11.6) sec INR Ratio APTT (23.4-31.7) sec Sodium (136-145) meq/L Potassium (3.5-5.1) meq/L Chloride (98-107) meq/L Carbon Dioxide (21.0-32.0) meq/L Anion Gap (5-15) meq/L BUN (7-18) mg/dL Creatinine (0.60-1.30) mg/dL Estimated GFR (>89) mL/min POC Glucose 187 H 151 H 160 H (68-110) mg/dl Random Glucose (74-106) mg/dL Lactic Acid (0.4-2.0) mmol/L Calcium (8.5-10.1) mg/dL Calcium Adj for Albumin (8.5-10.1) mg/dL Magnesium (1.5-2.5) mg/dL Total Bilirubin (0.2-1.0) mg/dL AST (15-37) U/L ALT (12-78) U/L Alkaline Phosphatase (45-117) U/L Ammonia (11-32) mcmol/L Total Creatine Kinase (39-308) U/L Troponin I (0.02-0.05) ng/mL Total Protein (6.4-8.2) g/dL Albumin (3.4-5.0) g/dL Urine Color (Yellw/Straw) Urine Clarity (Clear) Urine pH (5.0-8.5) Ur Specific [place] (1.002-1.035) Urine Protein (Neg-Trace) mg/dL Urine Glucose (UA) (Negative) mg/dL Urine Ketones (Negative) mg/dL Urine Occult Blood (Negative) Urine Nitrate (Negative) Urine Bilirubin (Negative) Urine Urobilinogen (Less than 2) mg/dL Ur Leukocyte Esterase (Negative) Urine RBC (0-3) /hpf Urine WBC (0-5) /hpf Micro UA Comment Ur Microscopic Review Urine Culture Comments Nasal Screen MRSA (PCR) (Negative) Urine Opiates Screen (Neg) Ur Barbiturates Screen (Neg) Ur Amphetamines Screen (Neg) U Benzodiazepines Scrn (Neg) Urine Cocaine Screen (Neg) U Cannabinoids Screen (Neg) Serum Alcohol (0-5) mg/dL Blood Type Blood Type Recheck Antibody Screen 05/30/18 05/30/18 05/30/18 Range/Units 03:55 04:00 04:00 WBC 6.2 (4.0-11.0) th/mm3 RBC 2.43 L (4.50-5.90) mil/mm3 Hgb 8.6 L D (13.0-17.0) gm/dL Hct 25.0 L (39.0-51.0) % MCV 102.9 H (80.0-100.0) fL MCH 35.6 H (27.0-34.0) pg MCHC 34.6 (32.0-36.0) % RDW 14.5 (11.6-17.2) % Plt Count 137 L (150-450) th/mm3 MPV 6.7 L (7.0-11.0) fL Neut % (Auto) 88.4 H (16.0-70.0) % Lymph % (Auto) 5.9 L (9.0-44.0) % [place] % (Auto) 5.1 (0.0-8.0) % Eos % (Auto) 0.4 (0.0-4.0) % Baso % (Auto) 0.2 (0.0-2.0) % Neut # (Auto) 5.5 (1.8-7.7) th/mm3 Lymph # (Auto) 0.4 L (1.0-4.8) th/mm3 [place] # (Auto) 0.3 (0.0-0.9) th/mm3 Eos # (Auto) 0.0 (0.0-0.4) th/mm3 Baso # (Auto) 0.0 (0.0-0.2) th/mm3 WBC Differential . Differential Comment Auto diff final PT (9.8-11.6) sec INR Ratio APTT (23.4-31.7) sec Sodium 141 (136-145) meq/L Potassium 3.4 L (3.5-5.1) meq/L Chloride 107 D (98-107) meq/L Carbon Dioxide 26.9 (21.0-32.0) meq/L Anion Gap 7 (5-15) meq/L BUN 6 L (7-18) mg/dL Creatinine 0.41 L (0.60-1.30) mg/dL Estimated GFR Greater than 89 (>89) mL/min POC Glucose 114 H (68-110) mg/dl Random Glucose 96 D (74-106) mg/dL Lactic Acid (0.4-2.0) mmol/L Calcium 7.4 L* D (8.5-10.1) mg/dL Calcium Adj for Albumin 8.8 (8.5-10.1) mg/dL Magnesium (1.5-2.5) mg/dL Total Bilirubin 0.5 (0.2-1.0) mg/dL AST 7 L (15-37) U/L ALT 11 L (12-78) U/L Alkaline Phosphatase 76 (45-117) U/L Ammonia (11-32) mcmol/L Total Creatine Kinase (39-308) U/L Troponin I (0.02-0.05) ng/mL Total Protein 5.3 L D (6.4-8.2) g/dL Albumin 2.2 L (3.4-5.0) g/dL Urine Color (Yellw/Straw) Urine Clarity (Clear) Urine pH (5.0-8.5) Ur Specific [place] (1.002-1.035) Urine Protein (Neg-Trace) mg/dL Urine Glucose (UA) (Negative) mg/dL Urine Ketones (Negative) mg/dL Urine Occult Blood (Negative) Urine Nitrate (Negative) Urine Bilirubin (Negative) Urine Urobilinogen (Less than 2) mg/dL Ur Leukocyte Esterase (Negative) Urine RBC (0-3) /hpf Urine WBC (0-5) /hpf Micro UA Comment Ur Microscopic Review Urine Culture Comments Nasal Screen MRSA (PCR) (Negative) Urine Opiates Screen (Neg) Ur Barbiturates Screen (Neg) Ur Amphetamines Screen (Neg) U Benzodiazepines Scrn (Neg) Urine Cocaine Screen (Neg) U Cannabinoids Screen (Neg) Serum Alcohol (0-5) mg/dL Blood Type Blood Type Recheck Antibody Screen 05/30/18 05/30/18 05/30/18 Range/Units 04:00 05:59 07:58 WBC (4.0-11.0) th/mm3 RBC (4.50-5.90) mil/mm3 Hgb 10.0 L (13.0-17.0) gm/dL Hct 28.2 L (39.0-51.0) % MCV (80.0-100.0) fL MCH (27.0-34.0) pg MCHC (32.0-36.0) % RDW (11.6-17.2) % Plt Count (150-450) th/mm3 MPV (7.0-11.0) fL Neut % (Auto) (16.0-70.0) % Lymph % (Auto) (9.0-44.0) % [place] % (Auto) (0.0-8.0) % Eos % (Auto) (0.0-4.0) % Baso % (Auto) (0.0-2.0) % Neut # (Auto) (1.8-7.7) th/mm3 Lymph # (Auto) (1.0-4.8) th/mm3 [place] # (Auto) (0.0-0.9) th/mm3 Eos # (Auto) (0.0-0.4) th/mm3 Baso # (Auto) (0.0-0.2) th/mm3 WBC Differential Differential Comment PT (9.8-11.6) sec INR Ratio APTT (23.4-31.7) sec Sodium (136-145) meq/L Potassium (3.5-5.1) meq/L Chloride (98-107) meq/L Carbon Dioxide (21.0-32.0) meq/L Anion Gap (5-15) meq/L BUN (7-18) mg/dL Creatinine (0.60-1.30) mg/dL Estimated GFR (>89) mL/min POC Glucose 117 H (68-110) mg/dl Random Glucose (74-106) mg/dL Lactic Acid (0.4-2.0) mmol/L Calcium (8.5-10.1) mg/dL Calcium Adj for Albumin (8.5-10.1) mg/dL Magnesium 1.6 (1.5-2.5) mg/dL Total Bilirubin (0.2-1.0) mg/dL AST (15-37) U/L ALT (12-78) U/L Alkaline Phosphatase (45-117) U/L Ammonia (11-32) mcmol/L Total Creatine Kinase (39-308) U/L Troponin I (0.02-0.05) ng/mL Total Protein (6.4-8.2) g/dL Albumin (3.4-5.0) g/dL Urine Color (Yellw/Straw) Urine Clarity (Clear) Urine pH (5.0-8.5) Ur Specific [place] (1.002-1.035) Urine Protein (Neg-Trace) mg/dL Urine Glucose (UA) (Negative) mg/dL Urine Ketones (Negative) mg/dL Urine Occult Blood (Negative) Urine Nitrate (Negative) Urine Bilirubin (Negative) Urine Urobilinogen (Less than 2) mg/dL Ur Leukocyte Esterase (Negative) Urine RBC (0-3) /hpf Urine WBC (0-5) /hpf Micro UA Comment Ur Microscopic Review Urine Culture Comments Nasal Screen MRSA (PCR) (Negative) Urine Opiates Screen (Neg) Ur Barbiturates Screen (Neg) Ur Amphetamines Screen (Neg) U Benzodiazepines Scrn (Neg) Urine Cocaine Screen (Neg) U Cannabinoids Screen (Neg) Serum Alcohol (0-5) mg/dL Blood Type Blood Type Recheck Antibody Screen 05/30/18 05/30/18 05/30/18 Range/Units 11:47 14:03 16:44 WBC (4.0-11.0) th/mm3 RBC (4.50-5.90) mil/mm3 Hgb (13.0-17.0) gm/dL Hct (39.0-51.0) % MCV (80.0-100.0) fL MCH (27.0-34.0) pg MCHC (32.0-36.0) % RDW (11.6-17.2) % Plt Count (150-450) th/mm3 MPV (7.0-11.0) fL Neut % (Auto) (16.0-70.0) % Lymph % (Auto) (9.0-44.0) % [place] % (Auto) (0.0-8.0) % Eos % (Auto) (0.0-4.0) % Baso % (Auto) (0.0-2.0) % Neut # (Auto) (1.8-7.7) th/mm3 Lymph # (Auto) (1.0-4.8) th/mm3 [place] # (Auto) (0.0-0.9) th/mm3 Eos # (Auto) (0.0-0.4) th/mm3 Baso # (Auto) (0.0-0.2) th/mm3 WBC Differential Differential Comment PT (9.8-11.6) sec INR Ratio APTT (23.4-31.7) sec Sodium (136-145) meq/L Potassium (3.5-5.1) meq/L Chloride (98-107) meq/L Carbon Dioxide (21.0-32.0) meq/L Anion Gap (5-15) meq/L BUN (7-18) mg/dL Creatinine (0.60-1.30) mg/dL Estimated GFR (>89) mL/min POC Glucose 106 120 H (68-110) mg/dl Random Glucose (74-106) mg/dL Lactic Acid 0.6 (0.4-2.0) mmol/L Calcium (8.5-10.1) mg/dL Calcium Adj for Albumin (8.5-10.1) mg/dL Magnesium (1.5-2.5) mg/dL Total Bilirubin (0.2-1.0) mg/dL AST (15-37) U/L ALT (12-78) U/L Alkaline Phosphatase (45-117) U/L Ammonia (11-32) mcmol/L Total Creatine Kinase (39-308) U/L Troponin I (0.02-0.05) ng/mL Total Protein (6.4-8.2) g/dL Albumin (3.4-5.0) g/dL Urine Color (Yellw/Straw) Urine Clarity (Clear) Urine pH (5.0-8.5) Ur Specific [place] (1.002-1.035) Urine Protein (Neg-Trace) mg/dL Urine Glucose (UA) (Negative) mg/dL Urine Ketones (Negative) mg/dL Urine Occult Blood (Negative) Urine Nitrate (Negative) Urine Bilirubin (Negative) Urine Urobilinogen (Less than 2) mg/dL Ur Leukocyte Esterase (Negative) Urine RBC (0-3) /hpf Urine WBC (0-5) /hpf Micro UA Comment Ur Microscopic Review Urine Culture Comments Nasal Screen MRSA (PCR) (Negative) Urine Opiates Screen (Neg) Ur Barbiturates Screen (Neg) Ur Amphetamines Screen (Neg) U Benzodiazepines Scrn (Neg) Urine Cocaine Screen (Neg) U Cannabinoids Screen (Neg) Serum Alcohol (0-5) mg/dL Blood Type Blood Type Recheck Antibody Screen 05/30/18 05/31/18 05/31/18 Range/Units 20:21 04:29 19:03 WBC (4.0-11.0) th/mm3 RBC (4.50-5.90) mil/mm3 Hgb (13.0-17.0) gm/dL Hct (39.0-51.0) % MCV (80.0-100.0) fL MCH (27.0-34.0) pg MCHC (32.0-36.0) % RDW (11.6-17.2) % Plt Count (150-450) th/mm3 MPV (7.0-11.0) fL Neut % (Auto) (16.0-70.0) % Lymph % (Auto) (9.0-44.0) % [place] % (Auto) (0.0-8.0) % Eos % (Auto) (0.0-4.0) % Baso % (Auto) (0.0-2.0) % Neut # (Auto) (1.8-7.7) th/mm3 Lymph # (Auto) (1.0-4.8) th/mm3 [place] # (Auto) (0.0-0.9) th/mm3 Eos # (Auto) (0.0-0.4) th/mm3 Baso # (Auto) (0.0-0.2) th/mm3 WBC Differential Differential Comment PT (9.8-11.6) sec INR Ratio APTT (23.4-31.7) sec Sodium (136-145) meq/L Potassium (3.5-5.1) meq/L Chloride (98-107) meq/L Carbon Dioxide (21.0-32.0) meq/L Anion Gap (5-15) meq/L BUN (7-18) mg/dL Creatinine (0.60-1.30) mg/dL Estimated GFR (>89) mL/min POC Glucose 174 H 201 H 253 H (68-110) mg/dl Random Glucose (74-106) mg/dL Lactic Acid (0.4-2.0) mmol/L Calcium (8.5-10.1) mg/dL Calcium Adj for Albumin (8.5-10.1) mg/dL Magnesium (1.5-2.5) mg/dL Total Bilirubin (0.2-1.0) mg/dL AST (15-37) U/L ALT (12-78) U/L Alkaline Phosphatase (45-117) U/L Ammonia (11-32) mcmol/L Total Creatine Kinase (39-308) U/L Troponin I (0.02-0.05) ng/mL Total Protein (6.4-8.2) g/dL Albumin (3.4-5.0) g/dL Urine Color (Yellw/Straw) Urine Clarity (Clear) Urine pH (5.0-8.5) Ur Specific [place] (1.002-1.035) Urine Protein (Neg-Trace) mg/dL Urine Glucose (UA) (Negative) mg/dL Urine Ketones (Negative) mg/dL Urine Occult Blood (Negative) Urine Nitrate (Negative) Urine Bilirubin (Negative) Urine Urobilinogen (Less than 2) mg/dL Ur Leukocyte Esterase (Negative) Urine RBC (0-3) /hpf Urine WBC (0-5) /hpf Micro UA Comment Ur Microscopic Review Urine Culture Comments Nasal Screen MRSA (PCR) (Negative) Urine Opiates Screen (Neg) Ur Barbiturates Screen (Neg) Ur Amphetamines Screen (Neg) U Benzodiazepines Scrn (Neg) Urine Cocaine Screen (Neg) U Cannabinoids Screen (Neg) Serum Alcohol (0-5) mg/dL Blood Type Blood Type Recheck Antibody Screen 06/01/18 06/01/18 Range/Units 02:56 08:24 WBC (4.0-11.0) th/mm3 RBC (4.50-5.90) mil/mm3 Hgb (13.0-17.0) gm/dL Hct (39.0-51.0) % MCV (80.0-100.0) fL MCH (27.0-34.0) pg MCHC (32.0-36.0) % RDW (11.6-17.2) % Plt Count (150-450) th/mm3 MPV (7.0-11.0) fL Neut % (Auto) (16.0-70.0) % Lymph % (Auto) (9.0-44.0) % [place] % (Auto) (0.0-8.0) % Eos % (Auto) (0.0-4.0) % Baso % (Auto) (0.0-2.0) % Neut # (Auto) (1.8-7.7) th/mm3 Lymph # (Auto) (1.0-4.8) th/mm3 [place] # (Auto) (0.0-0.9) th/mm3 Eos # (Auto) (0.0-0.4) th/mm3 Baso # (Auto) (0.0-0.2) th/mm3 WBC Differential Differential Comment PT (9.8-11.6) sec INR Ratio APTT (23.4-31.7) sec Sodium (136-145) meq/L Potassium (3.5-5.1) meq/L Chloride (98-107) meq/L Carbon Dioxide (21.0-32.0) meq/L Anion Gap (5-15) meq/L BUN (7-18) mg/dL Creatinine (0.60-1.30) mg/dL Estimated GFR (>89) mL/min POC Glucose 184 H 263 H (68-110) mg/dl Random Glucose (74-106) mg/dL Lactic Acid (0.4-2.0) mmol/L Calcium (8.5-10.1) mg/dL Calcium Adj for Albumin (8.5-10.1) mg/dL Magnesium (1.5-2.5) mg/dL Total Bilirubin (0.2-1.0) mg/dL AST (15-37) U/L ALT (12-78) U/L Alkaline Phosphatase (45-117) U/L Ammonia (11-32) mcmol/L Total Creatine Kinase (39-308) U/L Troponin I (0.02-0.05) ng/mL Total Protein (6.4-8.2) g/dL Albumin (3.4-5.0) g/dL Urine Color (Yellw/Straw) Urine Clarity (Clear) Urine pH (5.0-8.5) Ur Specific [place] (1.002-1.035) Urine Protein (Neg-Trace) mg/dL Urine Glucose (UA) (Negative) mg/dL Urine Ketones (Negative) mg/dL Urine Occult Blood (Negative) Urine Nitrate (Negative) Urine Bilirubin (Negative) Urine Urobilinogen (Less than 2) mg/dL Ur Leukocyte Esterase (Negative) Urine RBC (0-3) /hpf Urine WBC (0-5) /hpf Micro UA Comment Ur Microscopic Review Urine Culture Comments Nasal Screen MRSA (PCR) (Negative) Urine Opiates Screen (Neg) Ur Barbiturates Screen (Neg) Ur Amphetamines Screen (Neg) U Benzodiazepines Scrn (Neg) Urine Cocaine Screen (Neg) U Cannabinoids Screen (Neg) Serum Alcohol (0-5) mg/dL Blood Type Blood Type Recheck Antibody Screen Imaging Data Radiologist's impression: Chest X-Ray 05/29/18 00:34 CONCLUSION: 1. No acute abnormality or interval change. Head CT 05/29/18 00:34 CONCLUSION: 1. No acute intracranial abnormality. 2. Previously noted small bilateral subdural hygromas are nearly resolved. . ECG Data Attestation: I personally reviewed and interpreted this ECG as follows: Interpretation: Twelve-lead EKG was reviewed by me. Normal sinus rhythm, left axis deviation, tachycardia, nonspecific ST-T wave changes. Heart rate of 118 bpm. Discharge Plan Discharge Disposition Patient Disposition: ED Admit(ED Internal Use Only) Discharge Condition Condition: Stable Discharge Order Discharge Orders: AMA Discharge (Routine); Ordered 06/01/18 Ordered By: Erika Varela Discharge Order (Routine); Ordered 05/31/18 Ordered By: Erika Varela ED Use Only Admit Order (Routine); Ordered 05/29/18 Ordered By: Jonnie Figueredo Physicians Team ED Provider: Jonnie Figueredo Primary Care Provider: Primary Care Nury Mcdermott Attending Provider: Erika Varela Other Providers: Geoffrey Douglas Status ED Status: Left Department Discharge Information Discharge Date/Time: 05/29/18 04:21
--- NOTE | 2018-05-29 02:23 | CT ---
EXAM DATE: 05/29/2018 2:13 AM EST AGE/SEX: 62 years / Male INDICATIONS: Altered mental status, possible fall. Laceration to right side of head. CLINICAL DATA: This is the patient's initial encounter. Patient reports that signs and symptoms have been present for 1 day and indicates a pain score of 0/10. MEDICAL/SURGICAL HISTORY: Diabetes. Hypertension. Carcinoma, oral cavity. None. RADIATION DOSE: 41.80 CTDI (mGy) COMPARISON: [facility] [place], CT HEAD W/O CONTRAST, 03/29/2018. . TECHNIQUE: CT of the head without contrast. Using automated exposure control and adjustment of the mA and/or kV according to patient size, radiation dose was kept as low as reasonably achievable to ob tain optimal diagnostic quality images. DICOM format image data is available electronically for revi ew and comparison. FINDINGS: Cerebrum: Previously noted small low density subdural hygromas are nearly resolved. The ventricles a re normal for age. No evidence of midline shift, mass lesion, hemorrhage or acute infarction. No ext raaxial fluid collections are seen. Posterior Fossa: The cerebellum and brainstem are intact. The 4th ventricle is midline. The cerebe llopontine angle is unremarkable. Extracranial: The visualized portion of the orbits is intact. Skull: The calvaria is intact. No evidence of skull fracture. CONCLUSION: 1. No acute intracranial abnormality. 2. Previously noted small bilateral subdural hygromas are nearly resolved. . Electronically signed by: Aleksey Moreno MD Board Certified Radiologist 05/29/2018 2:21 AM FAN Wills
[2018-05-29] MEDS ORDERED: Acetaminophen 325 MG Tablet PO PRN (02:36)
[2018-05-29] MEDS ORDERED: Bisacodyl 10 MG Supp RECTAL PRN (02:36)
[2018-05-29] MEDS ORDERED: Dextrose 50% in Water 50 ML Vial IV.PUSH PRN (02:36)
[2018-05-29] MEDS ORDERED: LORazepam 1 MG Tablet PO PRN (02:43)
[2018-05-29] MEDS ORDERED: LORazepam 1 MG Tablet G-TUBE PRN (02:49)
[2018-05-29] MEDS ORDERED: Acetaminophen 325 MG Tablet G-TUBE PRN (02:49)
[2018-05-29] MEDS: Mag Sulf 1 gm/100 ml Premix 100 ML IV.SIG SCH ×2 (02:57→04:41)
--- NOTE | 2018-05-29 03:08 | P.HP ---
History of Present Illness Service: [facility] [place] Primary Care Physician: No Primary Care Physician History of Present Illness: 62-year-old male with a past medical history significant for alcohol abuse, anxiety, diabetes mellitus, hypertension, hyperlipidemia and squamous cell carcinoma of the oropharynx presents to the emergency department for the evaluation of altered mental status. Per ED documentation the patient was found in his apartment on the floor covered in urine and feces. The patient's living situation appeared unhygienic and his apartment was apparently infested with roaches. The patient states he is normally able to care for himself. He states he remembers falling in his bedroom. He denies any loss of consciousness or seizure-like activity. He was previously hospitalized in March of this year for syncope versus seizure and discharged on Keppra although per neurology evaluation it was unlikely related to seizure activity and the patient's EEG was normal. The patient denies taking any medications other than metformin. He reports he is supposed to be on Jevity tube feeds although ran out several weeks ago and has been using Ensure and soup through his PEG tube. He has a history of alcohol abuse and admits to drinking at least a pint of vodka daily. He also reports occasional marijuana use. He has a large laceration on the side of his head with some dried, crusted blood from a fall that he suffered 2 days ago. He states at that time he lost consciousness when he hit his head. Head CT was unremarkable. The patient denies any chest pain or shortness of breath. No abdominal pain. No nausea/ vomiting/diarrhea. No focal neurologic deficits. Alert and oriented x3. No fever/chills. 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 - Surgical History Surgical History: Surgical History (Last Reviewed 05/29/18 @ 02:51 by Rosenda Ellis MD) H/O skin graft History of vascular access device PEG (percutaneous endoscopic gastrostomy) status Status post chemotherapy - Family History Family History: Family History (Last Reviewed 05/29/18 @ 02:51 by oRsenda Ellis MD) Mother Family history of cancer - Social History I have reviewed the patient's Social History: Yes - Tobacco History Second Hand Smoke Exposure: No Smoking Status: Never smoker - Alcohol History How Often Do You Have a Drink Containing Alcohol: 4 or more times a week - Substance Use History Substance History: No History of Abuse - Travel History Recent Travel in the [place] Within the Last 8 Weeks: No Recent Travel Out of the Country Within the Last 8 Weeks: No - Immunization History Tetanus Immunization: <5 Years Tetanus Immunization Year if Known: 2018 Medications and Allergies Active Medications: Active Medications Acetaminophen (Tylenol) 650 mg PO Q4H PRN PRN Reason: Temp > 100.4 Bisacodyl (Dulcolax Supp) 10 mg RECTAL DAILY PRN PRN Reason: SEVERE CONSITIPATION Dextrose (D50w Vial) 50 ml IV.PUSH UNSCH PRN PRN Reason: PER HYPOGLYCEMIA PROTOCOL Glucagon (Glucagon Inj) 1 mg OTHER PRN PRN PRN Reason: for Hypoglycemia Protocol Magnesium Sulfate/Dextrose (Magnesium Sulfate 1 Gm/D5w 100 Ml Premix) 100 mls @ 100 mls/hr IV.SIG Q1H NICOLE Stop: 05/29/18 04:59 Sodium Chloride (Ns Inj) 1,000 mls @ 100 mls/hr IV.CONT .Q10H NICOLE Insulin Aspart (Novolog Insulin Correctional Sugar Inj) 0 unit SQ ACHS AND 3AM NICOLE; Protocol Lactulose (Lactulose Liq) 30 ml PO DAILY PRN PRN Reason: SEVERE CONSITIPATION Ondansetron HCl (Zofran Inj) 4 mg IV.PUSH Q6H PRN PRN Reason: NAUSEA OR VOMITING Sennosides (Senokot) 17.2 mg PO Q12H PRN PRN Reason: Moderate Constipation Sodium Chloride (Ns Flush) 2 ml IV.FLUSH PRN PRN PRN Reason: FLUSH AFTER USING IV ACCESS Sodium Chloride (Ns Flush) 2 ml IV.FLUSH BID NICOLE Sodium Chloride (Ns Flush) 2 ml IV.FLUSH PRN PRN PRN Reason: FLUSH AFTER USING IV ACCESS Allergies Allergy/AdvReac Type Severity Reaction Status Date / Time No Known Allergies Allergy Verified 05/29/18 00:16 Home Medications Medication Instructions Recorded Confirmed Type amlodipine 10 mg PO DAILY 03/29/18 03/29/18 History Exam Vital signs: Vital Signs 05/29/18 00:12 05/29/18 01:03 Temperature 98.8 F Pulse Rate 128 H Respiratory Rate 18 Blood Pressure 129/85 Pulse Oximetry 98 98 Intake & Output 05/28/18 05/28/18 05/29/18 06:59 18:59 06:59 Weight 68.039 kg Narrative: Gen.: Disheveled, male in no acute distress Head: Large vertical laceration on the parietal aspect of the right side of the patient's head with dried blood EENT: Pupils equal round and reactive to light. Nose without drainage. Airway intact. Throat without injection. Cardiovascular: Regular rate and rhythm. No murmurs, rubs or gallops. Chest: Right-sided port in place Respiratory: Lungs clear to auscultation bilaterally. No wheezes or rhonchi. Abdomen: Soft, nontender, nondistended. No peritoneal signs. PEG tube Musculoskeletal: No gross deformities. No edema. Skin: No obvious rashes or erythema. Neuro: Sensory and motor grossly intact. Cranial nerves II through XII grossly intact. Results - Labs CBC & Chem 7: 05/29/18 00:40 05/29/18 00:40 Labs: Laboratory Results - last 24 hr 05/29/18 05/29/18 05/29/18 00:40 00:40 00:40 WBC 9.8 RBC 3.57 L Hgb 12.6 L Hct 36.4 L MCV 101.9 H MCH 35.2 H MCHC 34.5 RDW 14.5 Plt Count 161 MPV 7.2 Neut % (Auto) 90.2 H Lymph % (Auto) 4.5 L [place] % (Auto) 5.0 Eos % (Auto) 0.1 Baso % (Auto) 0.2 Neut # (Auto) 8.8 H Lymph # (Auto) 0.4 L [place] # (Auto) 0.5 Eos # (Auto) 0.0 Baso # (Auto) 0.0 WBC Differential . Differential Comment Auto diff final PT 10.0 INR 1.0 APTT 26.4 Sodium 139 Potassium 3.4 L Chloride 98 Carbon Dioxide 28.4 Anion Gap 13 BUN 7 Creatinine 0.67 Estimated GFR Greater than 89 Random Glucose 341 H Lactic Acid Calcium 8.4 L Magnesium 1.3 L Total Bilirubin 0.3 AST 7 L ALT 13 Alkaline Phosphatase 88 Ammonia Total Creatine Kinase 15 L Troponin I Less than 0.02 L Total Protein 6.4 Albumin 2.7 L Urine Color Urine Clarity Urine pH Ur Specific [place] Urine Protein Urine Glucose (UA) Urine Ketones Urine Occult Blood Urine Nitrate Urine Bilirubin Urine Urobilinogen Ur Leukocyte Esterase Urine RBC Urine WBC Micro UA Comment Ur Microscopic Review Urine Culture Comments Serum Alcohol 198 H Blood Type Blood Type Recheck Antibody Screen 05/29/18 05/29/18 05/29/18 00:40 00:40 01:15 WBC RBC Hgb Hct MCV MCH MCHC RDW Plt Count MPV Neut % (Auto) Lymph % (Auto) [place] % (Auto) Eos % (Auto) Baso % (Auto) Neut # (Auto) Lymph # (Auto) [place] # (Auto) Eos # (Auto) Baso # (Auto) WBC Differential Differential Comment PT INR APTT Sodium Potassium Chloride Carbon Dioxide Anion Gap BUN Creatinine Estimated GFR Random Glucose Lactic Acid Calcium Magnesium Total Bilirubin AST ALT Alkaline Phosphatase Ammonia Less than 10 L Total Creatine Kinase Troponin I Total Protein Albumin Urine Color Straw Urine Clarity Clear Urine pH 6.0 Ur Specific [place] 1.029 Urine Protein Negative Urine Glucose (UA) 500 or greater Urine Ketones Negative Urine Occult Blood Negative Urine Nitrate Negative Urine Bilirubin Negative Urine Urobilinogen Less than 2 Ur Leukocyte Esterase Negative Urine RBC 1 Urine WBC 1 Micro UA Comment Cath-culture not ind Ur Microscopic Review Not Reportable Urine Culture Comments Cath-cult not ind Serum Alcohol Blood Type B Positive Blood Type Recheck Required Antibody Screen Negative 05/29/18 01:46 WBC RBC Hgb Hct MCV MCH MCHC RDW Plt Count MPV Neut % (Auto) Lymph % (Auto) [place] % (Auto) Eos % (Auto) Baso % (Auto) Neut # (Auto) Lymph # (Auto) [place] # (Auto) Eos # (Auto) Baso # (Auto) WBC Differential Differential Comment PT INR APTT Sodium Potassium Chloride Carbon Dioxide Anion Gap BUN Creatinine Estimated GFR Random Glucose Lactic Acid 4.6 H* Calcium Magnesium Total Bilirubin AST ALT Alkaline Phosphatase Ammonia Total Creatine Kinase Troponin I Total Protein Albumin Urine Color Urine Clarity Urine pH Ur Specific [place] Urine Protein Urine Glucose (UA) Urine Ketones Urine Occult Blood Urine Nitrate Urine Bilirubin Urine Urobilinogen Ur Leukocyte Esterase Urine RBC Urine WBC Micro UA Comment Ur Microscopic Review Urine Culture Comments Serum Alcohol Blood Type Blood Type Recheck Antibody Screen - Imaging Impressions Chest X-Ray 05/29/18 00:34 CONCLUSION: 1. No acute abnormality or interval change. Head CT 05/29/18 00:34 CONCLUSION: 1. No acute intracranial abnormality. 2. Previously noted small bilateral subdural hygromas are nearly resolved. . Caprini VTE Risk Assessment Caprini VTE Risk Assessment: Moderate/High Risk (score >= 2) Caprini Risk Assessment Model: Point Value = 1 Point Value = 2 Point Value = 3 Point Value = 5 Age 41-60 Minor surgery BMI > 25 kg/m2 Swollen legs Varicose veins or History of unexplained or recurrent spontaneous Oral contraceptives or hormone replacement Sepsis (< 1 month) Serious lung disease, including pneumonia (< 1 month) Abnormal pulmonary function Acute myocardial infarction Congestive heart failure (< 1 month) History of inflammatory bowel disease Medical patient at bed rest Age 61-74 Arthroscopic surgery Major open surgery (> 45 min) Laparoscopic surgery (> 45 min) Malignancy Confined to bed (> 72 hours) Immobilizing plaster cast Central venous access Age >= 75 History of VTE Family history of VTE Factor V Leiden Prothrombin [id number] Lupus anticoagulant Anticardiolipin antibodies Elevated serum homocysteine Heparin-induced thrombocytopenia Other congenital or acquired thrombophilia Stroke (< 1 month) Elective arthroplasty Hip, pelvis, or leg fracture Acute spinal cord injury (< 1 month) Prophylaxis Regimen: Total Risk Factor Score Risk Level Prophylaxis Regimen 0-1 Low Early ambulation 2 Moderate Order ONE of the following: *Sequential Compression Device (SCD) *Heparin 5000 units SQ BID 3-4 Higher Order ONE of the following medications: *Heparin 5000 units SQ TID *Enoxaparin/Lovenox 40 mg SQ daily (WT < 150 kg, CrCl > 30 mL/min) *Enoxaparin/Lovenox 30 mg SQ daily (WT < 150 kg, CrCl > 10-29 mL/min) *Enoxaparin/Lovenox 30 mg SQ BID (WT < 150 kg, CrCl > 30 mL/min) AND/OR *Sequential Compression Device (SCD) 5 or more Highest Order ONE of the following medications: *Heparin 5000 units SQ TID (Preferred with Epidurals) *Enoxaparin/Lovenox 40 mg SQ daily (WT < 150 kg, CrCl > 30 mL/min) *Enoxaparin/Lovenox 30 mg SQ daily (WT < 150 kg, CrCl > 10-29 mL/min) *Enoxaparin/Lovenox 30 mg SQ BID (WT < 150 kg, CrCl > 30 mL/min) AND *Sequential Compression Device (SCD) Assessment and Plan - Plan Assessment/plan: 1. Fall Likely secondary to alcohol intoxication, deconditioning Head CT negative for acute process CK 15 Physical therapy Patient previously worked up for syncopal episode, EEG unremarkable, evaluation by neurology stated unlikely secondary to seizure. Patient was discharged on Keppra however does not take this at home. 2. Elevated lactic acid Patient with previous admissions for lactic acidosis in the past No leukocytosis or fever Chest x-ray, urine negative IV fluid hydration Monitor 3. Squamous cell carcinoma of the oropharynx Follows with Dr. Ramirez consulted, appreciate assistance Last radiation and chemotherapy in February 4. Diabetes mellitus Patient reports the only medication he takes at home is metformin Sliding-scale insulin Monitor blood glucose 5. Hypertension/hyperlipidemia Patient denies any home medications Clonidine as needed 6. Alcohol abuse [facility] protocol Thiamine/folate/multivitamin Monitor for signs of withdrawal FEN Tube feeds with Glucerna 1.5 - 1 can every 4 hours while awake Electrolytes: Monitor and replete as needed NS at 100 cc/hours Holding pharmacologic anticoagulation for recent head trauma
[2018-05-29] MEDS: Sod Chloride 0.9% Inj 1,000 ML IV.SIG SCH ×2 (03:19→06:38)
[2018-05-29] MEDS: Insulin NovoLOG Aspart Correctional Sugar Inj SQ SCH ×5 (03:45→20:55)
[2018-05-29 04:16] LABS: Amphetamine Screen,Urine Neg (Neg); Barbiturate Screen,Urine Neg (Neg); Cannabinoid Screen,Urine Neg (Neg); Cocaine Screen,Urine Neg (Neg); Opiate Screen,Urine Neg (Neg)
[2018-05-29] MEDS: Sod Chloride 0.9% Inj 1,000 ML IV.CONT SCH ×4 (05:58→22:33)
[2018-05-29] MEDS ORDERED: Folic Acid 1 MG Tablet PO SCH (09:00)
[2018-05-29] MEDS ORDERED: Multivitamin/Minerals Therapeutic Tablet PO SCH (09:00)
[2018-05-29] MEDS ORDERED: Famotidine 20 MG Tablet PO SCH (09:00)
[2018-05-29] MEDS: Multivitamin/Minerals Therapeutic Tablet G-TUBE SCH (10:03)
[2018-05-29] MEDS: Folic Acid 1 MG Tablet G-TUBE SCH (10:03)
[2018-05-29] MEDS: Famotidine 20 MG Tablet G-TUBE SCH ×2 (10:03→20:55)
--- NOTE | 2018-05-29 13:19 | MH ---
cc: Geoffrey Douglas MD DATE OF ADMISSION: 05/29/2018 REQUESTING PHYSICIAN: Hospitalist. REASON FOR CONSULTATION: History of head and neck cancer, admitted with altered mental status. HISTORY OF PRESENT ILLNESS: Mr. Choi is a 62-year-old gentleman with a history of oropharyngeal cancer, status post combined chemoradiation completed in February under the supervision of Dr. Ramirez. Currently, he is admitted with altered mental status and found down at home covered in urine and feces and in an unhygienic situation. The patient told me that he had a fall 2 days prior to hospitalization and hurt his head, but did not come to the emergency room. There was external bleed from scalp laceration that has crusted over. He subsequently fell again 2 days later, that was yesterday. He called his son who called 911 and he was brought to the emergency room. He was subsequently sober and did not have any acute deterioration. He had a CT scan of the head, which showed resolving hygromas from prior falls and no acute changes. We were asked to consult on him for his history of oropharyngeal cancer. Mr. Choi tells me that he had completed his chemoradiation in February and is waiting to get a PET CT scan and had difficulty getting the scan because of uncontrolled blood glucose according to him. REVIEW OF SYSTEMS: He denies any headaches. He feels weak and tired, but no dizziness or blackouts at this time after hospitalization. No cough, chest pain, or shortness of breath. No abdominal pain, dysuria, blood in the stool, or black stools. No frequency, urgency, or hematuria. No fevers or night sweats. No recent weight loss. PAST MEDICAL HISTORY: Alcohol abuse, hyperlipidemia, diabetes, and hypertension in addition to squamous cell cancer of the lateral oropharynx. PAST SURGICAL HISTORY: History of skin graft to the right forearm due to what he describes as a flesh eating bacteria. History of vascular access device, PEG placement. FAMILY HISTORY: Noncontributory. SOCIAL HISTORY: Heavy alcohol abuser. Denies smoking. PHYSICAL EXAMINATION: GENERAL: Obese, middle-aged gentleman appearing older and chronically ill looking, no acute distress. VITAL SIGNS: Stable. He is afebrile. HEENT: Pallor present. No icterus. Without oropharyngeal lesions. No gum bleeding or hypertrophy. Right parietal scalp with a large bruise. No evidence of active bleeding. NEUROLOGIC: Alert, oriented x3. No meningeal signs. Moving all 4 extremities. NECK: No palpable adenopathy in the neck or axilla. No JVD. HEART: S1, S2. Regular rate and rhythm. LUNGS: Bilaterally with harsh expiratory wheezes. No crackles or dullness. ABDOMEN: Soft and nontender with PEG tube in place without evidence of infection. No free fluid or guarding. EXTREMITIES: No edema or evidence of DVTs. Bruises noted on the extremities, especially at the knees. LABORATORY DATA: Reviewed. CBC and chemistry unremarkable except for glucose of 341. CT head reviewed. ASSESSMENT AND PLAN: A 62-year-old gentleman with alcohol abuse and history of oropharyngeal cancer, status post chemoradiation awaiting PET CT scan currently with no evidence of active disease that requires therapy. CT head is negative for metastatic disease. His alcohol related falls are being well managed in the hospital. I do not have any specific oncologic recommendation at this time. After taking care of his acute hospitalization issues, he may safely follow up with Dr. Ramirez with the PET/CT scan as outpatient as planned. Geoffrey Douglas MD MVA/ts , 12:36 PM , 12:47 PM
[2018-05-29] MEDS ORDERED: Potassium Chloride 25 MEQ Effervescent Tablet NG/OG ONE (18:00)
--- NOTE | 2018-05-29 18:26 | ECG ---
Date Performed: 05/29/2018 Time Performed: 00:15:43 PTAGE: 62 years EKG: SINUS TACHYCARDIA MARKED LEFT AXIS DEVIATION ABNORMAL ECG Since the PREVIOUS TRACING , no significant change noted DOCTOR: Andres Fagan Interpretating Date/Time 05/29/2018 18:24:15
[2018-05-30] MEDS: Chlorhexidine Gluconate 2% 1 Pack (2 Cloths) TOPICAL SCH (03:23)
[2018-05-30] MEDS ORDERED: Chlorhexidine Gluconate 2% 1 Pack (2 Cloths) TOPICAL PRN (04:00)
[2018-05-30] MEDS: Insulin NovoLOG Aspart Correctional Sugar Inj SQ SCH ×5 (04:04→21:43)
[2018-05-30 05:17] LABS: Baso % (Auto) 0.2 % (0.0-2.0); Eos % (Auto) 0.4 % (0.0-4.0); Hemoglobin 8.6 gm/dL (13.0-17.0); Lymph # (Auto) 0.4 th/mm3 (1.0-4.8); Lymph % (Auto) 5.9 % (9.0-44.0); Mean Corpuscular HGB Conc 34.6 % (32.0-36.0); Mean Corpuscular Hemoglobin 35.6 pg (27.0-34.0); Mean Corpuscular Volume 102.9 fL (80.0-100.0); Mean Platelet Volume 6.7 fL (7.0-11.0); Mono # (Auto) 0.3 th/mm3 (0.0-0.9); Mono % (Auto) 5.1 % (0.0-8.0); Neut # (Auto) 5.5 th/mm3 (1.8-7.7); Neut % (Auto) 88.4 % (16.0-70.0); Platelet Count 137 th/mm3 (150-450); Red Blood Count 2.43 mil/mm3 (4.50-5.90); Red Cell Distribution Width 14.5 % (11.6-17.2); White Blood Count 6.2 th/mm3 (4.0-11.0)
[2018-05-30 05:52] LABS: Alanine Aminotransferase 11 U/L (12-78); Albumin 2.2 g/dL (3.4-5.0); Alkaline Phosphatase 76 U/L (45-117); Anion Gap 7 meq/L (5-15); Aspartate Aminotransferase 7 U/L (15-37); Blood Urea Nitrogen 6 mg/dL (7-18); Calcium 7.4 mg/dL (8.5-10.1); Carbon Dioxide 26.9 meq/L (21.0-32.0); Chloride 107 meq/L (98-107); Glomerular Filtration Rate Greater Than 89 mL/min (>89); Glucose,Random 96 mg/dL (74-106); Potassium 3.4 meq/L (3.5-5.1); Sodium 141 meq/L (136-145); Total Protein 5.3 g/dL (6.4-8.2)
[2018-05-30 06:15] LABS: Hematocrit 28.2 % (39.0-51.0)
[2018-05-30] MEDS: Sod Chloride 0.9% Inj 1,000 ML IV.CONT SCH ×2 (06:53→08:17)
[2018-05-30] MEDS: Folic Acid 1 MG Tablet G-TUBE SCH (08:18)
[2018-05-30] MEDS: Multivitamin/Minerals Therapeutic Tablet G-TUBE SCH (08:18)
[2018-05-30] MEDS: Famotidine 20 MG Tablet G-TUBE SCH ×2 (08:18→21:34)
--- NOTE | 2018-05-30 11:54 | P.DIET ---
Nutritional Evaluation Type of nutrition evaluation: initial Nutrition consult regarding: Tube Feeding Screening comments: 05/30 TF review Objective - Diagnosis AMS - Objective Body Mass Index: 24.0 % IBW: 102 (IBW = 154lb) Body Weight Used for Calculations: Actual (71.5kg) Energy Needs - Lower Range (kCal/kg): 25 Energy Needs - Upper Range (kCal/kg): 30 Lower Limit kCal/kg (kCals): 1,788 Upper Limit kCal/kg (kCals): 2,145 Lower Limit Protein Factor (Grams per Kg): 1.1 Upper Limit Protein Factor (Grams per Kg): 1.3 Lower Protein Needs (Protein): 79 Upper Protein Needs (Protein): 93 Dietitian Reviewed in Medical Record: Curent medications, Intake & Output, Labs , Medical history Diet Order: NPO Objective Comments: PMH: ETOH abuse, DM, HLD, HTN, primary squamous cell carcinoma Meds: folic acid, sliding scale insulin, MVI, zofran, vitamin B1 Labs: K+ 3.4, POC glucose 164 160 117, Ca+ 7.4 s/p PEG (September 2017), s/p chemo Assessment Assessment: Pt currently at nutritional risk r/t medical status and need for TF'ing. Pt currently on scheduled TF'ing diet of Glucerna 1.5 bolus 1 can q[address] while awake. RD to recommend Glucerna 1.5 @ 50mL/hr continuous via PEG tube to provide 1800kcal, 99g of protein, and 911mL of free water to best meet assessed needs. Continue to monitor TF tolerance, glucose labs. Labs reviewed, dietitian following. Additional recs to follow r/t medical course. Recommendations: 1. RD to recommend Glucerna 1.5 @ 50mL/hr continuous via PEG tube to best meet assessed needs 2. Continue to monitor TF tolerance, glucose labs 3. Dietitian following 4. Additional recs to follow r/t medical course Dietitian to Monitor: Lab values, Glucose level, Intake & Output, Tube feeding tolerance, Weight change, Medical course
--- NOTE | 2018-05-30 14:01 | P.PNIM ---
Subjective Interval history: Patient is currently in no acute distress. He says he wants to go home. No other complaints of the patient. Physical Exam Vital signs: Vital Signs 05/29/18 16:00 05/29/18 16:31 05/29/18 17:00 Temperature 98.4 F Pulse Rate 108 H 113 H 103 H Respiratory Rate 20 19 23 Blood Pressure 119/76 138/70 122/72 Pulse Oximetry 95 97 96 05/29/18 17:47 05/29/18 18:00 05/29/18 19:00 Temperature Pulse Rate 105 H 99 H 96 H Respiratory Rate 18 15 18 Blood Pressure 112/76 106/67 101/64 Pulse Oximetry 97 97 97 05/29/18 19:18 05/29/18 20:00 05/29/18 20:01 Temperature 98.8 F Pulse Rate 109 H 138 H Respiratory Rate 23 37 H Blood Pressure 115/80 115/80 Pulse Oximetry 97 96 97 05/29/18 21:00 05/29/18 22:00 05/29/18 23:00 Temperature Pulse Rate 104 H 90 89 Respiratory Rate 15 15 19 Blood Pressure 120/72 109/73 Pulse Oximetry 99 97 100 05/29/18 23:01 05/30/18 00:00 05/30/18 01:00 Temperature 98.5 F Pulse Rate 89 91 H 88 Respiratory Rate 22 18 14 Blood Pressure 134/67 130/82 Pulse Oximetry 100 97 98 05/30/18 01:02 05/30/18 02:00 05/30/18 03:00 Temperature Pulse Rate 86 85 96 H Respiratory Rate 17 17 20 Blood Pressure 115/77 120/58 L 113/65 Pulse Oximetry 99 98 97 05/30/18 04:00 05/30/18 06:00 05/30/18 07:00 Temperature 99.1 F Pulse Rate 93 H 87 89 Respiratory Rate 29 H 20 Blood Pressure 103/71 109/71 Pulse Oximetry 99 99 05/30/18 07:47 05/30/18 08:00 05/30/18 09:00 Temperature 98.8 F Pulse Rate 85 87 Respiratory Rate 15 15 Blood Pressure 115/71 112/73 Pulse Oximetry 94 L 97 99 05/30/18 10:00 05/30/18 10:03 05/30/18 11:00 Temperature Pulse Rate 88 88 86 Respiratory Rate 20 25 H 15 Blood Pressure 124/77 123/78 Pulse Oximetry 97 99 99 05/30/18 11:55 05/30/18 12:00 05/30/18 13:00 Temperature 98.8 F Pulse Rate 105 H 110 H 102 H Respiratory Rate 21 23 Blood Pressure 119/87 121/82 Pulse Oximetry 99 100 Intake & Output 05/29/18 05/30/18 05/30/18 18:59 06:59 18:59 Intake Total 2300 / 2300 2633 / 2633 Output Total 400 / 400 1550 / 1550 Balance 1900 / 1900 1083 / 1083 Weight 71.5 kg Intake: IV 2100 / 2100 1999 / 1999 NS Inj 1,000 ML @ 100 mls/hr IV 1000 / 1000 1999 / 1999 .CONT .Q10H [facility] Rx#:[id number] Magnesium Sulfate 1 gm/D5W 100 100 / 100 ml Premix 100 ML @ 100 mls/hr IV.SIG Q1H [facility] Rx#:[id number] NS Inj 1,000 ML @ 2000 mls/hr 1000 / 1000 IV.SIG Q30M [facility] Rx#:[id number] Oral 100 / 100 Tube Feeding 533 / 533 Water Bolus Amount 200 / 200 Output: Urine 400 / 400 1550 / 1550 Other: Date of Last Bowel Movement 05/28/18 05/28/18 05/28/18 Narrative: General patient in no acute distress, alert and oriented x3 respond to my questions and commands appropriately. HEENT extraocular movements are intact, clear oropharyngeal mucosa, no JVD Cardiovascular S1-S2 audible Respiratory clear to auscultation bilaterally Abdomen soft, nontender, nondistended, normal bowel sounds, PEG tube in place Extremities no edema 2+ distal pulses in bilateral upper and lower extremities Neuro patient moves all 4 extremities, sensation is intact bilaterally Results - Labs CBC & Chem 7: 05/30/18 05:59 05/30/18 04:00 Laboratory Results - last 24 hr 05/29/18 05/29/18 05/29/18 14:10 16:58 20:41 WBC RBC Hgb Hct MCV MCH MCHC RDW Plt Count MPV Neut % (Auto) Lymph % (Auto) [place] % (Auto) Eos % (Auto) Baso % (Auto) Neut # (Auto) Lymph # (Auto) [place] # (Auto) Eos # (Auto) Baso # (Auto) WBC Differential Differential Comment Sodium Potassium Chloride Carbon Dioxide Anion Gap BUN Creatinine Estimated GFR POC Glucose 187 H 151 H 160 H Random Glucose Calcium Calcium Adj for Albumin Magnesium Total Bilirubin AST ALT Alkaline Phosphatase Total Protein Albumin 05/30/18 05/30/18 05/30/18 03:55 04:00 04:00 WBC 6.2 RBC 2.43 L Hgb 8.6 L D Hct 25.0 L MCV 102.9 H MCH 35.6 H MCHC 34.6 RDW 14.5 Plt Count 137 L MPV 6.7 L Neut % (Auto) 88.4 H Lymph % (Auto) 5.9 L [place] % (Auto) 5.1 Eos % (Auto) 0.4 Baso % (Auto) 0.2 Neut # (Auto) 5.5 Lymph # (Auto) 0.4 L [place] # (Auto) 0.3 Eos # (Auto) 0.0 Baso # (Auto) 0.0 WBC Differential . Differential Comment Auto diff final Sodium 141 Potassium 3.4 L Chloride 107 D Carbon Dioxide 26.9 Anion Gap 7 BUN 6 L Creatinine 0.41 L Estimated GFR Greater than 89 POC Glucose 114 H Random Glucose 96 D Calcium 7.4 L* D Calcium Adj for Albumin 8.8 Magnesium Total Bilirubin 0.5 AST 7 L ALT 11 L Alkaline Phosphatase 76 Total Protein 5.3 L D Albumin 2.2 L 05/30/18 05/30/18 05/30/18 04:00 05:59 07:58 WBC RBC Hgb 10.0 L Hct 28.2 L MCV MCH MCHC RDW Plt Count MPV Neut % (Auto) Lymph % (Auto) [place] % (Auto) Eos % (Auto) Baso % (Auto) Neut # (Auto) Lymph # (Auto) [place] # (Auto) Eos # (Auto) Baso # (Auto) WBC Differential Differential Comment Sodium Potassium Chloride Carbon Dioxide Anion Gap BUN Creatinine Estimated GFR POC Glucose 117 H Random Glucose Calcium Calcium Adj for Albumin Magnesium 1.6 Total Bilirubin AST ALT Alkaline Phosphatase Total Protein Albumin 05/30/18 11:47 WBC RBC Hgb Hct MCV MCH MCHC RDW Plt Count MPV Neut % (Auto) Lymph % (Auto) [place] % (Auto) Eos % (Auto) Baso % (Auto) Neut # (Auto) Lymph # (Auto) [place] # (Auto) Eos # (Auto) Baso # (Auto) WBC Differential Differential Comment Sodium Potassium Chloride Carbon Dioxide Anion Gap BUN Creatinine Estimated GFR POC Glucose 106 Random Glucose Calcium Calcium Adj for Albumin Magnesium Total Bilirubin AST ALT Alkaline Phosphatase Total Protein Albumin Microbiology 05/29/18 00:40 Blood - Peripheral Aerobic Blood Culture - Preliminary No growth in 1 day 05/29/18 00:40 Blood - Peripheral Anaerobic Blood Culture - Preliminary No growth in 1 day 05/29/18 00:30 Blood - Peripheral Aerobic Blood Culture - Preliminary No growth in 1 day 05/29/18 00:30 Blood - Peripheral Anaerobic Blood Culture - Preliminary No growth in 1 day Assessment and Plan - Plan This patient is a 62-year-old male with a diagnosis of alcohol abuse, anxiety, diabetes mellitus type 2, hypertension, dyslipidemia, squamous cell carcinoma of the oropharynx. The patient has a PEG tube in place which she is to receive Jevity feeds through at home. The patient was found at his apartment covered in urine and feces. As per documentation the patient had his home infested with roaches. He was previously hospitalized in March with questionable seizure-like activity and was discharged with [place]. The patient states he has not been taking his medications. He drinks alcohol daily and he says he has proximally 3 drinks of vodka which he administers through the PEG tube. Patient was admitted after suffering a ground-level fall at home and he was found down. 1. Elevated lactic acid Patient is a significantly elevated lactate of around 4 on admission. This is possibly secondary to dehydration. His lactate has increased to 6. We will repeat his lactate and increase his rate of IV fluids. Lactate will be followed up. Time discussed with the patient's nurse at bedside. She is currently alert and oriented and will be transferred to the medicine floor. No signs of infection, chest x-ray is clear. Urinalysis is negative for UTI. 2. Hypertension Patient denies being on any home medications. Blood pressures currently under control. 3. Diabetes mellitus type 2 Continue low-dose insulin sliding scale. Continue to monitor the patient's blood glucose Continue feeds through the PEG tube. 4. Seizure disorder Continue Keppra 5. Squamous cell carcinoma of the oropharynx Patient evaluated by oncology, no acute intervention is needed during the hospitalization. Patient can follow-up with Dr. Ramirez and Dr. Navarro after discharge. 6. Alcohol abuse [facility] protocol Continue thiamine/folate/multivitamin Monitor for signs of withdrawal. Currently there are no active signs of withdrawal. 5-10 minutes was spent discussing the risks of alcohol abuse with the patient. No pharmacotherapy for DVT prophylaxis the patient recently had head trauma. Continue physical therapy and ambulate the patient as tolerated. Given the patient's home situation will discuss the case with case management in order to initiate discharge planning.
[2018-05-30] MEDS ORDERED: Magnesium Sulfate Inj 2 GM in Sodium Chlor 0.9% Inj 96 ML IV.SIG ONE (15:00)
[2018-05-31] MEDS ORDERED: Melatonin 5 MG Tablet PO ONE (02:39)
[2018-05-31] MEDS: Insulin NovoLOG Aspart Correctional Sugar Inj SQ SCH ×5 (03:30→21:00)
[2018-05-31] MEDS: Chlorhexidine Gluconate 2% 1 Pack (2 Cloths) TOPICAL SCH (04:36)
[2018-05-31] MEDS: Famotidine 20 MG Tablet G-TUBE SCH ×2 (11:10→21:22)
[2018-05-31] MEDS: Multivitamin/Minerals Therapeutic Tablet G-TUBE SCH (11:10)
[2018-05-31] MEDS: Folic Acid 1 MG Tablet G-TUBE SCH (11:10)
--- NOTE | 2018-05-31 13:01 | P.DCO ---
- Physical Therapy Order: Evaluate and treat - Home Health Nursing Order: Medical education, Wound care and dressing changes, Nursing assessment with vital signs - Case Management Consult Case Management Consult-Home Health: Yes - Certification I have seen patient Buzz Choi on 05/31/18. My clinical findings support the need for the requested home health care services because: Deconditioned with increased weakness, Limited ability to care for self, High risk of falls I certify that my clinical findings support that this patient is homebound because: Unsteady gait/balance
--- NOTE | 2018-05-31 13:09 | P.DS ---
Date of admission: 05/29/18 02:21 Primary care physician: No Primary Care Physician Brief History from admission: This patient is a 62-year-old male with a diagnosis of alcohol abuse, anxiety, diabetes mellitus type 2, hypertension, dyslipidemia, squamous cell carcinoma of the oropharynx. The patient has a PEG tube in place which she is to receive Jevity feeds through at home. The patient was found at his apartment covered in urine and feces. As per documentation the patient had his home infested with roaches. He was previously hospitalized in March with questionable seizure-like activity and was discharged with Keppra. The patient states he has not been taking his medications. He drinks alcohol daily and he says he has proximally 3 drinks of vodka which he administers through the PEG tube. Patient was admitted after suffering a ground-level fall at home and he was found down. DS: Medications - Discharge Medications Prescriptions: folic acid 1 mg G-TUBE DAILY #30 tab [id number]-mins [Thera M Plus (ferrous fumarat)] 1 tab G-TUBE DAILY #30 tab thiamine HCl (vitamin B1) 100 mg G-TUBE DAILY #30 tab DS: Summary Hospital Course: This patient is a 62-year-old male with a diagnosis of alcohol abuse, anxiety, diabetes mellitus type 2, hypertension, dyslipidemia, squamous cell carcinoma of the oropharynx. The patient has a PEG tube in place which she is to receive Jevity feeds through at home. The patient was found at his apartment covered in urine and feces. As per documentation the patient had his home infested with roaches. He was previously hospitalized in March with questionable seizure-like activity and was discharged with Keppra. The patient states he has not been taking his medications. He drinks alcohol daily and he says he has proximally 3 drinks of vodka which he administers through the PEG tube. 1. Elevated lactic acid Patient is a significantly elevated lactate of around 4 on admission. This is possibly secondary to dehydration. His lactate has increased to 6. After IVF the patients Lactate has normalized. Patient is much more awake and alert. He wants to go home. Patient will be discharged home today. No signs of infection, U/A negative, CXR negative. 2. Hypertension Patient denies being on any home medications. Blood pressures currently under control. 3. Diabetes mellitus type 2 Patient can continue metformin on discharge. He can follow up with a PCP after discharge. Instructions on how to obtain a PCP were given to the patient. 4. Seizure disorder Continue Keppra 5. Squamous cell carcinoma of the oropharynx Patient evaluated by oncology, no acute intervention is needed during the hospitalization. Patient can follow-up with Dr. Ramirez and Dr. Navarro after discharge. 6. Alcohol abuse [facility] protocol, patient was not in withdrawals during the hospitalization Continue thiamine/folate/multivitamin Currently there are no active signs of withdrawal. 5-10 minutes was spent discussing the risks of alcohol abuse with the patient. 7. Head laceration Patient suffered a fall at home many days ago. He has a large healing laceration on the right side of his head. No active bleeding. Patient was advised to seek medical attention if he begins to notice drainage from the wound or has fevers. No signs of infection currently. CT head from this admission showed nearly resolved subdural hygromas. Patient previously worked up for syncopal episode, EEG unremarkable, evaluation by neurology stated unlikely secondary to seizure. Continue feeds through the peg tube. - Time Spent with Patient Total time spent providing and/or coordinating discharge services: Greater than 30 minutes - Quality: VTE Deep Vein Thrombosis/Pulmonary Embolism Present on Admission: No Exam Vital signs: Vital Signs 05/30/18 14:31 05/30/18 15:27 05/30/18 16:00 Temperature 97.9 F Pulse Rate 99 H 85 90 Respiratory Rate 20 Blood Pressure 133/81 Pulse Oximetry 99 05/30/18 20:00 05/30/18 20:20 05/30/18 23:55 Temperature 98.2 F 97.9 F Pulse Rate 107 H 104 H Respiratory Rate 19 18 Blood Pressure 116/77 114/75 Pulse Oximetry 96 98 96 05/31/18 00:00 05/31/18 04:30 05/31/18 04:42 Temperature 98.6 F Pulse Rate 98 H 93 H Respiratory Rate 17 Blood Pressure 105/65 Pulse Oximetry 96 95 05/31/18 08:00 05/31/18 09:34 Temperature 98.5 F Pulse Rate 99 H Respiratory Rate 16 Blood Pressure 104/66 Pulse Oximetry 97 97 Intake & Output 05/30/18 05/31/18 05/31/18 18:59 06:59 18:59 Intake Total 850 / 850 1480 / 1480 Output Total 1100 / 1100 Balance 850 / 850 380 / 380 Intake: IV 850 / 850 1000 / 1000 LR 1000 mL Inj 1,000 ML @ 80 1000 / 1000 mls/hr IV.CONT .[id number] [facility] Rx# :[id number] NS Inj 1,000 ML @ 100 mls/hr IV 750 / 750 .CONT .Q10H [facility] Rx#:[id number] Magnesium Sulfate Inj 2 GM In 100 / 100 NS Inj 96 ML @ 50 mls/hr IV.SIG ONCE ONE Rx#:[id number] Oral 480 / 480 Output: Urine 1100 / 1100 Other: Date of Last Bowel Movement 05/28/18 05/30/18 # Bowel Movements 0 Narrative: General patient in no acute distress, alert and oriented x3 respond to my questions and commands appropriately. HEENT extraocular movements are intact, clear oropharyngeal mucosa, large laceration healing right side of pts head. Cardiovascular S1-S2 audible Respiratory clear to auscultation bilaterally Abdomen soft, nontender, nondistended, normal bowel sounds, PEG tube in place Extremities no edema 2+ distal pulses in bilateral upper and lower extremities Neuro patient moves all 4 extremities, sensation is intact bilaterally Results Procedures completed during hospitalization: none Labs on day of discharge: Labs from last 24 hours 05/31/18 05/30/18 05/30/18 04:29 20:21 16:44 POC Glucose 201 H 174 H 120 H Lactic Acid 05/30/18 14:03 POC Glucose Lactic Acid 0.6 Preliminary micro results at discharge 05/29/18 00:40 Aerobic Blood Culture - Preliminary Blood - Peripheral No growth in 2 days Anaerobic Blood Culture - Preliminary No growth in 2 days 05/29/18 00:30 Aerobic Blood Culture - Preliminary Blood - Peripheral No growth in 2 days Anaerobic Blood Culture - Preliminary No growth in 2 days - Impressions ITS Impressions Chest X-Ray 05/29/18 00:34 CONCLUSION: 1. No acute abnormality or interval change. Head CT 05/29/18 00:34 CONCLUSION: 1. No acute intracranial abnormality. 2. Previously noted small bilateral subdural hygromas are nearly resolved. . Discharge Plan - Discharge Disposition Patient Disposition: /Home Health Service - Discharge Condition Condition: Stable - Discharge Order Discharge Orders: Discharge Order (Routine); Ordered 05/31/18 Ordered By: Erika Varela - Physicians Team Primary Care Provider: Primary Care Physici,No Attending Provider: Erika Varela Other Providers: Geoffrey Douglas MD
[2018-05-31 20:54] VITALS: RESP 17
[2018-06-01] MEDS: Insulin NovoLOG Aspart Correctional Sugar Inj SQ SCH ×2 (03:02→08:57)
[2018-06-01 04:55] VITALS: O2SAT 97
[2018-06-01] MEDS: Chlorhexidine Gluconate 2% 1 Pack (2 Cloths) TOPICAL SCH (05:23)
[2018-06-01] MEDS: Folic Acid 1 MG Tablet G-TUBE SCH (08:58)
[2018-06-01] MEDS: Famotidine 20 MG Tablet G-TUBE SCH (08:59)
[2018-06-01] MEDS: Multivitamin/Minerals Therapeutic Tablet G-TUBE SCH (08:59)
[2018-06-01 09:17] VITALS: BP 107/69; PULSE 108; TEMP 97.5
--- NOTE | 2018-06-01 11:12 | P.PNIM ---
Subjective Interval history: No complaints from the patient today. He says he wants to go home. He says he cannot afford to purchase his PEG tube feeds. No other complaints. Physical Exam Vital signs: Vital Signs 05/31/18 12:00 05/31/18 16:00 05/31/18 19:44 Temperature 99.4 F 98.6 F 98.1 F Pulse Rate 107 H 104 H 100 H Respiratory Rate 20 20 17 Blood Pressure 119/76 112/69 117/75 Pulse Oximetry 97 98 99 05/31/18 19:58 05/31/18 20:00 05/31/18 23:46 Temperature 98.1 F Pulse Rate 111 H 97 H Respiratory Rate 17 Blood Pressure 111/71 Pulse Oximetry 99 99 95 06/01/18 00:00 06/01/18 03:53 06/01/18 04:00 Temperature 97.9 F Pulse Rate 97 H 101 H 86 Respiratory Rate 17 Blood Pressure 122/75 Pulse Oximetry 97 06/01/18 08:48 Temperature 97.5 F L Pulse Rate 108 H Respiratory Rate 17 Blood Pressure 107/69 Pulse Oximetry 97 Intake & Output 05/31/18 06/01/18 06/01/18 18:59 06:59 18:59 Intake Total 900 / 900 1857 / 1857 Output Total 1200 / 1200 Balance 900 / 900 657 / 657 Weight 71.2 kg Intake: IV 900 / 900 972 / 972 LR 1000 mL Inj 1,000 ML @ 80 900 / 900 972 / 972 mls/hr IV.CONT .[id number] [facility] Rx# :[id number] Tube Feeding 785 / 785 Tube Irrigant 100 / 100 Output: Urine 1200 / 1200 Other: # Voids 5 Date of Last Bowel Movement 05/30/18 05/30/18 Narrative: General patient in no acute distress, alert and oriented x3 respond to my questions and commands appropriately. HEENT extraocular movements are intact, clear oropharyngeal mucosa, large laceration healing right side of pts head. Cardiovascular S1-S2 audible Respiratory clear to auscultation bilaterally Abdomen soft, nontender, nondistended, normal bowel sounds, PEG tube in place Extremities no edema 2+ distal pulses in bilateral upper and lower extremities Neuro patient moves all 4 extremities, sensation is intact bilaterally Results - Labs CBC & Chem 7: 05/30/18 05:59 05/30/18 04:00 Laboratory Results - last 24 hr 05/31/18 06/01/18 06/01/18 19:03 02:56 08:24 POC Glucose 253 H 184 H 263 H Microbiology 05/29/18 00:40 Blood - Peripheral Aerobic Blood Culture - Preliminary No growth in 3 days 05/29/18 00:40 Blood - Peripheral Anaerobic Blood Culture - Preliminary No growth in 3 days 05/29/18 00:30 Blood - Peripheral Aerobic Blood Culture - Preliminary No growth in 3 days 05/29/18 00:30 Blood - Peripheral Anaerobic Blood Culture - Preliminary No growth in 3 days - Procedures none Assessment and Plan - Plan This patient is a 62-year-old male with a diagnosis of alcohol abuse, anxiety, diabetes mellitus type 2, hypertension, dyslipidemia, squamous cell carcinoma of the oropharynx. The patient has a PEG tube in place which she is to receive Jevity feeds through at home. The patient was found at his apartment covered in urine and feces. As per documentation the patient had his home infested with roaches. He was previously hospitalized in March with questionable seizure-like activity and was discharged with [place]. The patient states he has not been taking his medications. He drinks alcohol daily and he says he has proximally 3 drinks of vodka which he administers through the PEG tube. 06/01/18 Patient evaluated today. He says he wants to go home. Currently the patient is on PEG tube feeds and unsafe to be discharged home as he does not have the feeds set up for him to go home. I discussed the case with case management today regarding this issue and she says on Sunday of next week is when they would be able to have everything ready for him to have the feeds set up at home. Medically the patient is stable to be discharged and we are awaiting for the peg tube feeds to be setup for a safe discharge. Continue PT 1. Elevated lactic acid Patient is a significantly elevated lactate of around 4 on admission. This is possibly secondary to dehydration. His lactate has increased to 6. After IVF the patients Lactate has normalized. Patient is much more awake and alert. He wants to go home. Patient will be discharged home today. No signs of infection, U/A negative, CXR negative. 2. Hypertension Patient denies being on any home medications. Blood pressures currently under control. 3. Diabetes mellitus type 2 Patient can continue metformin on discharge. He can follow up with a PCP after discharge. Instructions on how to obtain a PCP were given to the patient. 4. Seizure disorder Continue Keppra 5. Squamous cell carcinoma of the oropharynx Patient evaluated by oncology, no acute intervention is needed during the hospitalization. Patient can follow-up with Dr. Ramirez and Dr. Navarro after discharge. 6. Alcohol abuse [facility] protocol, patient was not in withdrawals during the hospitalization Continue thiamine/folate/multivitamin Currently there are no active signs of withdrawal. 5-10 minutes was spent discussing the risks of alcohol abuse with the patient. 7. Head laceration Patient suffered a fall at home many days ago. He has a large healing laceration on the right side of his head. No active bleeding. Patient was advised to seek medical attention if he begins to notice drainage from the wound or has fevers. No signs of infection currently. CT head from this admission showed nearly resolved subdural hygromas.
[2018-06-01] MEDS ORDERED: Heparin Central Flush 100 UNIT/ML 5 ML Vial IV.FLUSH PRN ×2 (11:51)
== END 2018-06-01 12:41 | disposition left against medical advice (07) | DRG 641 ==
LOC: NEPE 23:57 → NEDA 05-29 02:21 → HIMC 05-29 03:55 → N06 05-30 16:38
PROVIDERS: ADMIT Hospitalist; ATTEND Hospitalist
CPT/HCPCS: 70450; 71010; 71045; 80053; 80307; 81001; 82140; 82550; 82948; 82962; 83605; 83735; 84484; 85014; 85018; 85025; 85610; 85730; 86850; 86900; 86901; 87040; 87641; 92610; 93005; 97110; 97116; 97162; 99285; G0195; J1642; J1815; J2060; J3475; J7030; J7120